=== PATIENT | female | born 1990 | race African-American/Black ===

== ENCOUNTER → 2024-10-13 | Outpatient (CLI) | payer OTHER, SELFPAY ==
[2024-10-13 17:53] LABS: Absolute Lymphocyte Count 2.17 X10^3/uL (0.83-4.51); Basophil# 0.06 X10^3/uL; Basophil% 0.9 % (0-1); Eosinophil# 0.06 X10^3/uL; Eosinophils% 0.9 % (0-5); Hematocrit 37.3 % (37-47); Hemoglobin 12.5 g/dL (12.0-15.0); Lymphocyte # 2.17 X10^3/ul (0.83-4.51); Mean Corp Hgb Conc 33.5 g/dL (32-36); Mean Corpuscular Hgb 32.3 pg (27.0-32.0); Mean Corpuscular Volume 96.4 fL (81-99); Monocyte# 0.47 X10^3/uL; Monocyte% 6.9 % (0-10); NRBC Flagged by Analyzer 0 % (0-5); Neutrophil # 4.01 X10^3/uL (2.7-7.7); Platelet Count 382 K/mm3 (150-450); RBC Distribution Width CV 13.3 % (11.6-14.6); RBC Distribution Width SD 47.7 fl (35.1-43.9); Red Blood Count 3.87 M/mm3 (4.2-5.4); White Blood Count 6.8 K/mm3 (4.4-11.0)
[2024-10-13 18:03] LABS: AST(SGOT) 17 U/L (<=31); Alanine Aminotransfer ALT/SGPT 13 U/L (<=34); Albumin, Serum 4.3 g/dL (3.5-5.0); Alkaline Phosphatase 63 U/L (35-104); Anion Gap 10 (5-15); BUN 16 mg/dL (4-19); BUN/Creat Ratio 16.4 RATIO (10-20); Calcium,Total 9.6 mg/dL (7.6-11.0); Carbon Dioxide 25.2 mmol/L (21.0-32.0); Chloride 102 mmol/L (98-108); Creatinine, Serum 0.95 mg/dL (0.70-1.20); EST Glomerular Filtration Rate 80 (>60); Globulin 4.2 g/dL (2.2-4.2); Glucose 92 mg/dL (70-99); Potassium 3.7 mmol/L (3.3-5.1); Protein, Total 8.6 g/dL (5.9-8.4); Sodium Level 137 mmol/L (133-145); Total Bilirubin 0.23 mg/dL (0.00-1.30)
[2024-10-13 18:09] LABS: Hepatitis B Surface Antibody REAC
[2024-10-17 06:08] LABS: HEPATITIS B SURFACE AG Negative (Negative); Hep C Antibodies Non Reactive (Non Reactive); Hepatitis A AB, Total Negative (Negative); Hepatitis A IgM Antibody Negative (Negative); Hepatitis B Core AB IgM Negative (Negative); QNTFERON TB Mitogen Value > 10.00 IU/mL (.); QNTFERON TB Nil Value 0.04 IU/mL (.); QNTFERON TB1+ Ag Value 0.07 IU/mL (.); QNTFERON TB2+ Ag Value 0.02 IU/mL (.); QNTIFERON TB Positive Criteria Negative (Negative)
== END | disposition home or self-care (01) ==
PROVIDERS: PCP Nurse Practitioner Family; Referring Provider Dermatology Pediatric Dermatology; Visit Provider Dermatology Pediatric Dermatology
DX: L73.2 Hidradenitis suppurativa (principal); Z79.899 Other long term (current) drug therapy
CPT/HCPCS: 36415; 80053; 80074; 85025; 86480; 86706; 86708

== ENCOUNTER 2025-03-07 16:52 | Outpatient (CLI) | payer OTHER, SELFPAY ==
--- NOTE | 2025-03-07 15:40 | LES_PTH ---
PATIENT: VIOLET DIEZ LOC: [facility] U#:[id number] AGE/SX: 34/F ROOM: RE03/07/[address]: Dr. Jorge Day MD : 1990 BED: DIS: 03/07/2025 SPEC #: [id number] RECD: 03/08/25 08:07 STATUS: MARY LOU XIN #: [id number] DARIRUS: 03/07/25 15:[address]: Jorge Day DEPT: SURGICAL PATHOLOGY RECD BY: Teresa Eagle ENTERED: 03/08/25 08:08 SP TYPE: Lesion OTHR DR: AAYUSH Brewer Tissues: A - Skin of arm Procedures: Surgery Specimen Level III HEADER OPERATION: Excision hydrodenitis lesion - right armpit PRE-OP DIAGNOSIS: Right armpit TISSUE SUBMITTED: A- Right axillary lesion MICROSCOPIC DIAGNOSIS A. Skin, right axilla, excision: * Polypoid skin with active chronic inflammation and fibrosis/scar. MICROSCOPIC DESCRIPTION Slides are reviewed. GROSS DESCRIPTION A. Received in formalin labeled with the patient's name and date of . Designated as right axillary lesion is a brown, slightly wrinkled hair-bearing, somewhat polypoid, irregular portion of skin, 4.6 x 1.9 x 0.6 cm. The resection margin is perez-white, fibrotic, and inked orange. Sectioning reveals perez-white fibrotic to yellow fatty cut surfaces. Feather Drying Machine Operator sections are submitted in 2 cassettes. [place] 03/08/2025 CPT:43304
== END 2025-03-07 23:59 | disposition home or self-care (01) ==
LOC: LABSPEC 16:56
PROVIDERS: PCP Nurse Practitioner Family; Referring Provider Surgery Plastic and Reconstructive Surgery; Visit Provider Surgery Plastic and Reconstructive Surgery
DX: R22.9 Localized swelling, mass and lump, unspecified (principal); L90.5 Scar conditions and fibrosis of skin; L08.9 Local infection of the skin and subcutaneous tissue, unspecified
CPT/HCPCS: 88304; 88305

== ENCOUNTER → 2025-04-13 | Outpatient (CLI) | payer OTHER, SELFPAY ==
--- NOTE | 2025-04-13 15:00 | HID_PTH ---
PATIENT: VIOLET DIEZ LOC: [facility] U#:[id number] AGE/SX: 34/F ROOM: RE04/13/[address]: Dr. Jorge Day MD : 1990 BED: DIS: 04/13/2025 SPEC #: [id number] RECD: 04/13/25 16:11 STATUS: MARY LOU XIN #: [id number] DARRIUS: 04/13/25 15:[address]: Jorge Day DEPT: SURGICAL PATHOLOGY RECD BY: Gatito Burgess ENTERED: 04/16/25 09:22 SP TYPE: Josep MCQUEEN DR: AAYUSH Brewer Tissues: A - Right axillary region B - Left axillary region Procedures: Surgery Specimen Level III HEADER OPERATION: Excision hidradenitis right and left axillary PRE-OP DIAGNOSIS: Hidradenitis right and left axillary TISSUE SUBMITTED: A- Right axillary lesion, B- Left axillary lesion MICROSCOPIC DIAGNOSIS A. Right axilla, excision: - Polypoid skin fragments with active chronic inflammation, consistent with skin tags. B. Left axilla, excision: - Polypoid skin with active chronic inflammation, consistent with skin tag. MICROSCOPIC DESCRIPTION Slides are reviewed. GROSS DESCRIPTION Received in 2 formalin containers labeled with the patient's name and date of . Designated as: A. "Right axillary lesion" are 3 brown, wrinkled hairbearing portions of skin devoid of orientation collectively measuring 3.4 x 1.7 x 0.4 cm in aggregate. Sectioning reveals perez-yellow to white, fibrotic cut surfaces. Cell Cleaner sections are submitted in 1 cassette. B. "Left axillary lesion" is a 4.5 x 3.2 x 0.5 cm irregular, brown, wrinkled hairbearing portion of skin devoid of orientation. Sectioning reveals perez-yellow to white, fibrotic cut surfaces. Cell Cleaner sections are submitted in 1 cassette. [place] 04/16/2025 CPT:20835z8
--- OUTSIDE RECORDS SUMMARY | 2025-04-13 16:49 | XMS RPT_ITS | CCD ---
Author Organization [facility] Care Team Providers Care Information Coder Name Role Phone Yves Boogie Unavailable [phone] No, Physician Unavailable Unavailable No, Physician Unavailable Unavailable Unavailable Unavailable Unavailable PEOPLECELIA Montes Unavailable Unavai labrios NO, PHYSICIAN Unavailable Unavailable PEOPLECELIA Montes Unavailable Unavai lable Ambrosio Mas Unavailable Unavailable Ambrosio Mas Unavailable Unavailable Yves Boogie Unavailable Unavailable Yves Boogie Unavailable Unavailable Unavailable Primary Care Provider UnavailYves Sharpe Primary Care Provider [phone] No, Physician Unavailable Unavailable Serene Melendez Unavailable Maksim Shraee E Unavailable Unavailable SERENE MELENDEZ Admitting Unavail able ZEINAB MENDOZA Attending Unavailable SERENE MELENDEZ Referring Unavail able YVES BOOGIE Primary Care Unavailable YVES BOOGIE Primary Care Unavailable YVES BOOGIE Primary Care Unavailable YVES BOOGIE Primary Care Unavailable Cecile Oleary Primary Care Provider Cecile Valle Primary Care Provide r No, Physician Unavailable Unavailable Serene Melendez CNP Unavailable Maksim PAULETTE Sharee E Unavailable Unavailable No, Physician Primary Care Provider UnavailCordell Mera Primary Care Provider Serene Melendez CNP Unavailable [phone] Maksimnina CALDWELL Sharee E Unavailable Unavailable Yves Boogie MD Primary Care Provider No, Physician Unavailable Unavailable Serene Melendez CNP Unavailable [phone] Maksim CALDWELL, Sharee E Unavailable Unavailable No, Physician Primary Care Provider Unavailabl e Steve EXOTIC DANCER-WET WHEELER, Cordell Primary Care Provider NO, PHYSICIAN Primary Care Unavailable MOROCCO JR., ERIKA Attending Unavailable NO, PHYSICIAN Primary Care Unavailable MOROCCO JR., ERIKA Attending Unavailable MOROCCO JR., ERIKA Attending Unavailable NO, PHYSICIAN Primary Care Unavailable NO, PHYSICIAN Primary Care Unavailable MOROCCO JR., ERIKA Attending Unavailable Steve EXOTIC DANCER-WET WHEELER, Cordell Primary Care Provider Steve FIRE BATTALION CHIEF-C, Cordell Primary Care Provider Nancy VIVAS, Dr. Solomon Attending Provider [phone] Dr. Neha Cruz MD Referring Provider [phone] STEVE, CORDELL Primary Care Unavailable STEVE, CORDELL Referring Unavailable RABIA PECK Attending Unavailable STEVE, CORDELL Referring Unavailable STEVE, CORDELL Attending Unavailable STEVE, CORDELL Primary Care Unavailable STEVE, CORDELL Attending Unavailable SELF, SELF Referring Unavailable STEVE, CORDELL Primary Care Unavailable SELF, SELF Referring Unavailable RABIA PECK Attending Unavailable STEVE, CORDELL Primary Care Unavailable STEVE, CORDELL Primary Care Unavailable STEVE, CORDELL Referring Unavailable STEVE, CORDELL Attending Unavailable STEVE, CORDELL Primary Care Unavailable STEVE, CORDELL Attending Unavailable SELF, SELF Referring Unavailable Steve FIRE BATTALION CHIEF-C, Cordell Referring Provider Dr. Jorge Day MD Attending Provider Power FIRE BATTALION CHIEF-C, Cordell Primary Care Physician Dr. Jorge Day MD Attending Physician Dr. Neha Cruz MD Referring Provider [phone] Power FIRE BATTALION CHIEF-C, Cordell Referring Provider Dr. Jorge Day MD Referring Provider Steve, Cordell Primary Care Unavailable Stvee, Cordell Referring Unavailable Jorge Day Attending Unavailable Steve, Cordell Primary Care Unavailable Jorge Day Attending Unavailable Shay Jorge Referring Unavailable Steve, Cordell Primary Care Unavailable Sisjefferson, Jorge Attending Unavailable Neha Cruz Referring Unavailable Steve, Cordell Referring Unavailable SisJorge paulino Attending Unavailable Steve, Cordell Primary Care Unavailable Steve, Cordell Referring Unavailable Steve, Cordell Primary Care Unavailable SisJorge paulino Attending Unavailable Steve, Cordell Primary Care Unavailable NancyNeha perez Attending Unavailable NancyIzabela perezen Referring Unavailable Medications Current Medications Medication Drug Class(es) Dates Sig (Normalized) Sig (Original) 0.4 ml adalimumab 100 mg/ml auto-injector (6 sources) Tumor Necrosis Factor Dejuan Start: 01-22-2023 inject 1 dose by subcutaneous injection every week Humira Pen 40 MG/0.4ML Pen-injector Kit citrate free Inject under the skin once a week. Pt unsure of dose 01/22/2023 Active albuterol 108 (90 Base) MCG/ACT Aero Soln inhaler (6 sources) Start: 08-15-2020 take 1 puff(s) by inhalation every six hours as needed for wheezing albuterol 108 (90 Base) MCG/ACT Aero Soln inhaler Inhale 1 puff every 6 hours as needed for Wheezing. 1 Inhaler 0 08/15/2020 Active Start: 08-01-2020 take 1 puff(s) by in halation every six hours as needed for wheezing albuterol 108 (90 Base) MCG/ACT Aero Soln inhaler Inhale 1 puff every 6 hours as needed for Wheezing. 1 Inhaler 0 08/01/2020 Active Start: 06-18-2020 End: 06-25-2020 take 2 puff(s) by inhalation every four hours as needed for wheezing albuterol 108 (90 Base) MCG/ACT Aero Soln inhaler Indications: Wheezy bronchitis Inhale 2 puffs every 4 hours as needed for Wheezing for up to 7 days. 1 Inhaler 0 06/18/2020 06/25/2020 Active Start: 04-28-2020 End: 06-18-2020 take 2 puff(s) by inhalation every four hours as needed for wheezing albuterol 108 (90 Base) MCG/ACT Aero Soln inhaler Inhale 2 puffs every 4 hours as needed for Wheezing for up to 7 days. 1 Inhaler 0 04/28/2020 06/18/2020 Discontinued (Reorder) Start: 04-28-2020 End: 05-05-2020 take 2 puff(s) by inhalation every four hours as needed for wheezing albuterol 108 (90 Base) MCG/ACT Aero Soln inhaler Inhale 2 puffs every 4 hours as needed for Wheezing for up to 7 days. 1 Inhaler 0 04/28/2020 05/05/2020 Active amLODIPine 5 mg oral tablet (6 sources) Dihydropyridine Calcium Channel Dejuan Start: 01-26-2025 take 1 tablet by mouth once daily Amlodipine 5 mg tablet Active 5 mg PO daily January 26, 2025 12:00am Complies with drug therapy Start: 10-03-2024 take 1 tablet by harini th once daily amLODIPine 5 MG tablet Indications: Benign hypertension Take 1 tablet by mouth daily. 30 tablet 5 10/03/2024 Active azithromycin 250 mg oral tablet (5 sources) Macrolide Antimicrobial Start: 02-02-2023 End: 02-07-2023 Azithromycin 250 MG tablet Take 500 mg X1 then 250 mg PO Once Daily X 4 days 6 tablet 0 02/02/2023 02/07/2023 Active Start: 06-09-2021 End: 06-13-2021 azithromycin 250 MG tablet T mere 500 mg X1 then 250 mg PO Once Daily X 4 days 6 tablet 0 06/09/2021 06/13/2021 Active Start: 08-15-2020 End: 08-20-2020 azithromycin 250 MG tablet T mere 2 tablets (500 mg) on Day 1, then 1 tablet (250 mg) daily on Days 2-5 6 tablet 0 08/15/2020 08/20/2020 Active Start: 04-28-2020 End: 05-03-2020 azithromycin (Zithromax Z-Pa k) 250 MG tablet Take 2 tablets (500 mg) on Day 1, then 1 tablet (250 mg) daily on Days 2-5 6 tablet 0 04/28/2020 05/03/2020 Active benzoyl peroxide 100 mg/ml medicated liquid soap (20 sources) Start: 08-18-2021 End: 10-03-2024 Benzoyl Peroxide 10 % Liquid Indications: Hidradenitis suppurativa Take 1 Application by mouth daily. Wash in shower 148 mL 11 10/03/2024 Active Start: 07-08-2021 End: 08-16-2021 benzoyl peroxide 10 % Clsr [place] affected areas in shower daily . 141 g 5 07/08/2021 08/16/2021 Discontinued (Reorder) Start: 04-23-2020 End: 05-23-2020 benzoyl peroxide 10 % Clsr I ndications: Hidradenitis suppurativa Apply 1 application topically 2 (two) times a day . 227 g 1 04/23/2020 05/23/2020 Active Bimekizumab-Bkzx (4 sources) Start: 01-26-2025 Bimekizumab-Bk zx (Bimzelx Autoinjector) 320 mg/2 mL auto-injector Active mg SC January 26, 2025 12:00am Complies with drug therapy Start: 01-26-2025 Start: 01-26-2025 Bimekizumab-Bk zx (Bimzelx Autoinjector) 320 mg/2 mL auto- injector Active mg SC January 26, 2025 12:00am brompheniramine maleate 0.4 mg/ml / dextromethorphan hydrobromide 2 mg/ml / pseudoephedrine hydrochloride 6 mg/ml oral solution (3 sources) alpha-Adrenergic Agonist, Uncompetitive K-rdyxaq-M-aspartate Receptor Antagonist, Sigma-1 Agonist Start: 04-28-2020 take 1 [tsp_us] by mouth every six hours as needed chqskwimnegskkq-yvnchajersoyvxb-caujjefv thorphan (Bromfed DM) 30-2-10 MG/5ML Syrup Take 1 teaspoon PO every 6 hours as needed 200 mL 0 04/28/2020 Active cefuroxime 500 mg oral tablet (1 source) Cephalosporin Antibacterial Start: 02-02-2023 End: 02-12-2023 take 1 tablet by mouth twice daily cefUROXime 500 MG tablet Take 1 tablet b y mouth 2 times daily for 10 days. 20 tablet 0 02/02/2023 02/12/2023 Active clindamycin 10 mg/ml topical lotion (20 sources) Lincosamide Antibacterial Start: 10-03-2024 clindamycin 1 % Lotion lotio n Indications: Hidradenitis suppurativa Apply a thin layer to affected areas bid 60 mL 11 10/03/2024 Active Start: 08-18-2021 End: 10-03-2024 clindamycin 1 % Lotion lotio n Apply 1 Application topically Twice daily. To affected areas 08/18/2021 10/03/2024 Discontinued (Reorder) Start: 07-08-2021 End: 08-16-2021 clindamycin (CLEOCIN T) 1 % lotion Apply topically 2 (two) times a day To affected areas. . 60 mL 4 07/08/2021 08/16/2021 Discontinued (Reorder) Start: 04-23-2020 End: 04-23-2021 clindamycin (Cleocin T) 1 % external solution Indications: Hidradenitis suppurativa Apply topically 2 (two) times a day . 30 mL 2 04/23/2020 04/23/2021 Active Start: 02-08-2017 End: 02-08-2017 take 600 mg intravenous route every hour clindamycin (CLEOCIN) IVPB 600 mg (premix) 600 mg, Intravenous, at 100 mL/hr, Once, 02/08/17 at 5, For 1 dose, Indication: Skin & Soft Tissue Infection New Bag 02/08/2017 21:11 EDT 600 mg 100 mL/hr Start: 02-08-2017 End: 02-18-2017 take 1 capsule by mouth four times daily clindamycin (CLEOCIN) 300 MG capsule Take 1 (one) capsule (300 mg total) by mouth 4 (four) times a day for 10 days. 40 capsule 0 02/08/2017 02/18/2017 Active ergocalciferol 1.25 mg oral capsule (20 sources) Provitamin D2 Compound Start: 02-27-2020 End: 01-01-2022 take 1 capsule by mouth every week ergocalciferol (ERGOCALCIFEROL) 1,250 mcg (50,000 unit) capsule Indications: Vitamin D insufficiency Take 1 (one) capsule (50,000 Units total) by mouth once a week . 4 capsule 1 02/27/2020 Active ferrous sulfate 325 mg oral tablet (16 sources) Start: 02-28-2020 End: 02-27-2021 take 1 tablet by mouth three times daily at mealtime ferrous sulfate 325 (65 FE) MG tablet Indications: Iron deficiency anemia, unspecified iron deficiency anemia type Take 1 (one) tablet (325 mg total) by mouth 3 (three) times a day with meals . 90 tablet 2 02/28/2020 Active hydroCHLOROthiazide 25 mg / lisinopril 20 mg oral tablet (15 sources) Thiazide Diuretic, Angiotensin Converting Enzyme Inhibitor Start: 01-26-2025 Lisinopril-Hydrochlo rothiazide 20-25 mg tablet Active 1 {tbl} PO daily January 26, 2025 12:00am Complies with drug therapy Start: 09-14-2022 End: 10-03-2024 take 20-25 mg by mouth once lisinopril-hydrochlorothiazide (Zestoret ic) 20-25 MG per tablet Indications: Benign hypertension Take 1 tablet by mouth daily. 90 tablet 1 10/03/2024 Active Start: 02-27-2022 take 1 tablet by harini once daily lisinopril-hydrochlorothiazide (Zestoret ic) 20-12.5 MG per tablet Indications: Hypertension, unspecified type Take 1 tablet by mouth daily. 30 tablet 5 02/27/2022 Active Start: 01-01-2022 End: 02-27-2022 take 1 tablet by mouth once daily lisinopril-hydrochlorothiazide 20-25 MG per tablet Indications: Uncontrolled hypertension , Edema of right upper extremity Take 1 tablet by mouth daily. 30 tablet 5 01/01/2022 02/27/2022 Discontinued ibuprofen 200 mg oral tablet (16 sources) Nonsteroidal Anti-inflammatory Drug take 2 tablets by mouth every six hours as needed for pain ibuprofen (ADVIL,MOTRIN) 200 MG tablet Take 400 mg by mouth every 6 (six) hours as needed for pain. 0 Active metFORMIN hydrochloride 500 mg oral tablet (14 sources) Biguanide Start: metFORMIN (GLUCOPHAGE) 500 MG tablet Take 1 tablet daily. . 30 tablet 1 01/05/2022 Active Start: 10-07-2021 End: 10-03-2024 take 0.5 tablet by mouth once daily metFORMIN 500 MG tablet Take 0.5 tablets by mouth daily. 10/07/2021 10/03/2024 Discontinued (Therapy completed) Start: 10-07-2021 End: 01-05-2022 metFORMIN (GLUCOPHAGE) 500 M G tablet Take 1/2 tablet a day for a total of 250mg . 30 tablet 1 10/07/2021 01/05/2022 Discontinued (Reorder) 24 hr metoprolol succinate 25 mg extended release oral tablet (20 sources) beta-Adrenergic Dejuan Start: 07-09-2020 End: 01-01-2022 take 1 tablet by mouth once daily metoprolol succinate (TOPROL-XL) 25 MG 24 hr tablet Take 1 (one) tablet (25 mg total) by mouth daily . 30 tablet 11 07/09/2020 Active pantoprazole 40 mg delayed release oral tablet (7 sources) Proton Pump Inhibitor Start: 01-26-2025 take 1 tablet by mouth once daily Pantoprazole 40 mg tablet,delayed release (DR/EC) Active 40 mg PO daily January 26, 2025 12:00am Complies with drug therapy Start: 10-03-2024 take 1 tablet by harini th once daily Pantoprazole (Protonix) [address] tablet DR Indications: Gastroesophageal reflux disease without esophagitis Take 1 tablet by mouth daily. 30 tablet 2 10/03/2024 Active Start: 02-02-2023 End: 02-02-2023 Pantoprazole (PROTONIX) inje ction 40 mg Completed/Discontinued Medications Medication Drug Class(es) Dates Sig (Normalized) Sig (Original) acetaminophen 325 mg / HYDROcodone bitartrate 5 mg oral tablet (4 sources) Opioid Agonist Start: 02-08-2017 End: 02-08-2017 take 2 tablets by mouth once, then take 2 tablets by mouth HYDROcodone-aceta minophen (NORCO) 5-325 mg per tablet 2 tablet 2 tablet, Oral, Once, 02/08/17 at 2230, For 1 dose Given 02/08/2017 22:32 EDT 2 tablets Start: 02-08-2017 End: 02-18-2017 take 1 tablet by mouth every six hours HYDROcodone-acetaminophen (NORCO) 5-325 mg per tablet Take 1 (one) tablet by mouth every 6 (six) hours as needed for pain. 15 tablet 0 02/08/2017 02/18/2017 Active Start: 01-08-2017 End: 04-28-2020 take 1 tablet by mouth three times daily hydroCODone-acetaminophen 5-325 MG Tab t mere 1 tablet by mouth 3 times daily as needed.. 6 tablet 0 01/08/2017 04/28/2020 Discontinued [id number] 200 actuat albuterol 0.09 mg/actuat metered dose inhaler (20 sources) beta2-Adrenergic Agonist Start: 02-02-2023 End: 09-11-2024 take 2 puff(s) by inhalation every four hours Albuterol 108 (90 Base) MCG/ACT Aero Soln inhaler 2 puffs every 4 hours while awake for next 5 days. 6.7 g 02/02/2023 09/11/2024 Discontinued (Therapy completed) Start: 09-14-2022 take 2 puff(s) by in halation every four hours as needed for wheezing Albuterol 108 (90 Base) MCG/ACT Aero Soln inhaler Indications: Moderate persistent asthma without complication Inhale 2 puffs every 4 hours as needed for Shortness of Breath or Wheezing. 18 g 5 09/14/2022 Active Start: 12-11-2021 End: 01-01-2022 take 2 puff(s) by inhalation every four hours as needed for wheezing albuterol 108 (90 Base) MCG/ACT Aero Soln inhaler Indications: Moderate persistent asthma without complication Inhale 2 puffs every 4 hours as needed for Shortness of Breath or Wheezing. 18 g 5 01/01/2022 Active Start: 10-01-2021 take 2 puff(s) by in halation every four hours as needed for wheezing albuterol 108 (90 Base) MCG/ACT Aero Soln inhaler Indications: Asthma, unspecified asthma severity, unspecified whether complicated, unspecified whether persistent Inhale 2 puffs every 4 hours as needed for Wheezing. 18 g 1 10/01/2021 Active Start: 06-09-2021 End: 02-02-2023 albuterol (2.5 MG/3ML) 0.083 % inhalation solution Indications: Asthma, unspecified asthma severity, unspecified whether complicated, unspecified whether persistent Take 3 mL by nebulization every 4 hours as needed for Wheezing. Inhalation via nebulizer 90 mL 3 10/01/2021 02/02/2023 Discontinued (Therapy completed) Start: 01-23-2021 End: 10-01-2021 take 1 puff(s) by inhalation every six hours as needed for wheezing albuterol 108 (90 Base) MCG/ACT Aero Soln inhaler Inhale 1 puff every 6 hours as needed for Wheezing. 18 g 1 01/23/2021 10/01/2021 Discontinued (Reorder) Start: 08-01-2020 End: 10-23-2020 take 1 puff(s) by inhalation every six hours as needed for wheezing albuterol 108 (90 Base) MCG/ACT Aero Soln inhaler Inhale 1 puff every 6 hours as needed for Wheezing. 1 Inhaler 0 08/01/2020 Active albuterol 0.833 mg/ml / ipratropium bromide 0.167 mg/ml inhalation solution (1 source) Anticholinergic, beta2-Adrenergic Agonist Start: 12-15-2021 End: 12-15-2021 ipratropium-albuterol (DUONEB) 0.5-2.5 (3) MG/3ML nebulizer solution 3 mL Start: 12-15-2021 End: 12-15-2021 ipratropium-albuterol (DUONE B) 0.5-2.5 (3) MG/3ML nebulizer solution 3 mL benzonatate 200 mg oral capsule (3 sources) Non-narcotic Antitussive Start: 02-25-2020 End: 04-28-2020 take 1 capsule by mouth three times daily as needed for cough benzonatate 200 MG capsule Indications: Allergic cough Take 1 capsule by mouth 3 times daily as needed for Cough. 21 capsule 0 02/25/2020 04/28/2020 Discontinued 60 actuat budesonide 0.16 mg/actuat / formoterol fumarate 0.0045 mg/actuat metered dose inhaler (17 sources) Corticosteroid, beta2-Adrenergic Agonist Start: 09-14-2022 End: 09-11-2024 take 2 puff(s) by inhalation every twelve hours budesonide-formote rol 160-4.5 mcg/puff Aerosol inhaler Indications: Moderate persistent asthma without complication Inhale 2 puffs every 12 hours. 10.2 g 5 09/14/2022 09/11/2024 Discontinued (Patient Preference) Start: 01-01-2022 take 2 puff(s) by in halation every twelve hours budesonide-formoterol 160-4.5 mcg/puff Aerosol inhaler Indications: Moderate persistent asthma without complication Inhale 2 puffs every 12 hours. 10.2 g 5 01/01/2022 Active Start: 01-23-2021 End: 01-01-2022 take 2 puff(s) by inhalation every twelve hours budesonide-formoterol 160-4.5 mcg/puff Aerosol inhaler Indications: Asthma, unspecified asthma severity, unspecified whether complicated, unspecified whether persistent Inhale 2 puffs every 12 hours. 6 g 1 12/15/2021 01/01/2022 Discontinued (Reorder) Start: 10-10-2020 take 2 puff(s) by in halation every twelve hours budesonide-formoterol 160-4.5 mcg/puff Aerosol inhaler Inhale 2 puffs every 12 hours. 1 Inhaler 3 10/10/2020 Active Start: 08-01-2020 take 2 puff(s) by in halation every twelve hours budesonide-formoterol 160-4.5 mcg/puff Aerosol inhaler Inhale 2 puffs every 12 hours. 1 Inhaler 0 08/01/2020 Active 24 hr buPROPion hydrochloride 300 mg extended release oral tablet (5 sources) Aminoketone Start: 09-14-2022 End: 09-05-2024 take 1 tablet by mouth once daily in the morning buPROPion 300 MG tablet XL Indications: Other depression Take 1 tablet by mouth daily every morning. 90 tablet 1 09/14/2022 09/05/2024 Discontinued (Therapy completed) Start: 02-27-2022 take 1 tablet by harini th once daily in the morning buPROPion 300 MG tablet XL Indications: Other depression Take 1 tablet by mouth daily every morning. 30 tablet 5 02/27/2022 Active Start: 01-01-2022 take 1 tablet by harini th every twelve hours buPROPion 150 MG tablet SR Indications: Other depression Take 1 tablet by mouth every 12 hours. 60 tablet 1 01/01/2022 Active calcium chloride 0.0014 meq/ml / potassium chloride 0.004 meq/ml / sodium chloride 0.103 meq/ml / sodium lactate 0.028 meq/ml injectable solution (1 source) Start: 02-02-2023 End: 02-02-2023 Lactated ringers IV solution 1,000 mL cefTRIAXone (ROCEPHIN) 1 g in sodium chloride 0.9% (MB PLUS) 50 mL (total volume) IVPB (1 source) Start: 02-02-2023 End: 02-02-2023 cefTRIAXone (ROCEPHIN) 1 g in sodium chloride 0.9% (MB PLUS) 50 mL (total volume) IVPB cetirizine hydrochloride 10 mg oral tablet (17 sources) Histamine-1 Receptor Antagonist Start: 08-01-2020 End: 10-03-2024 take 1 tablet by mouth once daily cetirizine 10 MG tablet Indications: Deviated nasal septum , Nasal obstruction , Chronic sinusitis, unspecified location Take 1 tablet by mouth daily. 30 tablet 11/20/2020 10/03/2024 Discontinued (Therapy completed) cholecalciferol 1000 unt oral capsule (2 sources) Vitamin D Start: 10-13-2017 End: 03-14-2020 take 1 capsule by mouth once daily cholecalciferol, vitamin D3, (VITAMIN D3) 1,000 unit capsule Take 1 (one) capsule (1,000 Units total) by mouth daily. 90 capsule 3 10/13/2017 03/14/2020 Discontinued (Duplicate order) 1 ml diphenhydrAMINE hydrochloride 50 mg/ml cartridge (1 source) Histamine-1 Receptor Antagonist Start: 02-02-2023 End: 02-02-2023 diphenhydrAMINE (BENADRYL) injection 50 mg doxycycline hyclate 100 mg oral capsule (18 sources) Tetracycline-cla ss Drug Start: 03-07-2025 End: 03-14-2025 take 1 capsule by mouth twice daily at mealtime Doxycycline Hyclate 100 mg capsule Discontinued 100 mg PO TWICE A DAY 14 7 0 March 07, 2025 12:00am March 13, 2025 12:00am March 14, 2025 12:12am Hidradenitis Hidradenitis suppurativa prophylaxis take with food Start: 07-31-2017 End: 02-25-2020 doxycycline hyclate (VIBRAMY TANNER) 100 MG capsule fluticasone propionate 0.05 mg/actuat metered dose nasal spray (20 sources) Corticosteroid Start: 11-20-2020 End: 10-03-2024 fluticasone 50 MCG/ACT Suspension nasal spray Indications: Deviated nasal septum , Nasal obstruction , Chronic sinusitis, unspecified location 2 sprays by Nasal route 2 times daily. 18.2 mL 11/20/2020 10/03/2024 Discontinued (Therapy completed) Start: 10-23-2020 End: 01-01-2022 fluticasone 50 MCG/ACT Suspe nsion nasal spray Indications: Deviated nasal septum , Nasal obstruction , Chronic sinusitis, unspecified location 2 sprays by Nasal route daily. 1 Bottle 0 10/23/2020 01/01/2022 Discontinued (Therapy completed) Start: 06-18-2020 End: 01-01-2022 take 2 spray(s) nasal route once daily fluticasone 50 MCG/ACT Suspension nasal spray Indications: Rhinitis, unspecified type 2 sprays each nostril daily 1 Bottle 0 06/18/2020 01/01/2022 Discontinued (Therapy completed) 12 hr guaiFENesin 600 mg extended release oral tablet (2 sources) Start: 08-15-2020 End: 10-23-2020 take 1 tablet by mouth twice daily as needed guaiFENesin 600 MG Tab SR 12 HR tablet SR Take 1 tablet by mouth 2 times daily as needed. 30 tablet 0 08/15/2020 10/23/2020 Discontinued hydrocortisone 0.025 mg/mg topical ointment (2 sources) Corticosteroid Start: 07-31-2017 End: 03-14-2020 hydrocortisone 2.5 % ointment lisinopril 20 mg oral tablet (14 sources) Angiotensin Converting Enzyme Inhibitor Start: 10-23-2020 End: 01-03-2022 take 1 tablet by mouth once daily lisinopril 20 MG tablet Take 1 tablet by mouth daily. 30 tablet 0 12/15/2021 01/01/2022 Discontinued (Duplicate (suppress cancel msg)) Start: 10-10-2020 End: 10-23-2020 take 1 tablet by mouth once daily lisinopril 10 MG tablet Take 1 tablet by mouth daily. 90 tablet 0 10/10/2020 10/23/2020 Discontinued Start: 08-01-2020 take 1 tablet by harini once daily lisinopril 10 MG tablet Take 1 tablet by mouth daily. 30 tablet 0 08/01/2020 Active loratadine 10 mg oral tablet (15 sources) Start: 10-23-2020 End: 10-03-2024 take 1 tablet by mouth once daily loratadine 10 MG tablet Indications: Deviated nasal septum , Nasal obstruction , Chronic sinusitis, unspecified location Take 1 tablet by mouth daily. 30 tablet 11/20/2020 10/03/2024 Discontinued (Therapy completed) 2 ml metoclopramide 5 mg/ml prefilled syringe (1 source) Dopamine-2 Receptor Antagonist Start: 02-02-2023 End: 02-02-2023 Metoclopramide (REGLAN) injection 10 mg minocycline 100 mg oral capsule (20 sources) Tetracycline-cla ss Drug Start: 08-18-2021 End: 10-03-2024 take 1 capsule by mouth twice daily minocycline 100 MG capsule Take 1 capsule by mouth Twice daily. 08/18/2021 10/03/2024 Discontinued (Therapy completed) Start: 04-23-2020 End: 08-16-2021 take 1 capsule by mouth twice daily minocycline (MINOCIN,DYNACIN) 100 MG capsule Indications: Hidradenitis suppurativa Take 1 (one) capsule (100 mg total) by mouth 2 (two) times a day . 60 capsule 2 07/08/2021 08/16/2021 Discontinued (Reorder) 2 ml ondansetron 2 mg/ml injection (1 source) Serotonin-3 Receptor Antagonist Start: 02-02-2023 End: 02-02-2023 Ondansetron 4mg/2ml (ZOFRAN) injection 4 mg potassium bicarbonate 25 meq effervescent oral tablet (1 source) Start: 02-02-2023 End: 02-02-2023 potassium bicarbonate (EFFER-K) effervescent tablet 50 mEq predniSONE 20 mg oral tablet (12 sources) Start: 12-15-2021 End: 12-15-2021 predniSONE (DELTASONE) tablet 40 mg Start: 12-15-2021 End: 01-01-2022 take 2 tablets by mouth once daily predniSONE 20 MG tablet Take 2 tablets by mouth daily. 10 tablet 0 12/15/2021 01/01/2022 Discontinued (Therapy completed) Start: 12-11-2021 End: 12-15-2021 predniSONE 10 MG (21) Tab Th erapy Pack Indications: Asthma, unspecified asthma severity, unspecified whether complicated, unspecified whether persistent Take 6 pills on day 1, then 5, 4, 3, 2 and 1 each day sequentially 21 Each 0 12/11/2021 12/15/2021 Discontinued (Therapy completed) Start: 10-01-2021 predniSONE 10 MG (21) Tab Therapy Pack Indications: Asthma, unspecified asthma severity, unspecified whether complicated, unspecified whether persistent Take 6 pills on day 1, then 5, 4, 3, 2 and 1 each day sequentially 21 Each 0 10/01/2021 Active Start: 06-09-2021 End: 10-01-2021 predniSONE 10 MG (21) Tab Th erapy Pack Take 6 pills on day 1, then 5, 4, 3, 2 and 1 each day sequentially 21 Each 0 06/09/2021 10/01/2021 Discontinued (Reorder) Start: 06-09-2021 predniSONE 10 MG (21) Tab Therapy Pack Take 6 pills on day 1, then 5, 4, 3, 2 and 1 each day sequentially 21 Each 0 06/09/2021 Active Start: 06-18-2020 End: 06-24-2020 take 2 tablets by mouth once daily, then take 1 tablet by mouth once daily predniSONE 20 MG tablet Indications: Wheezy bronchitis , Rhinitis, unspecified type Take 2 tablets by mouth daily for 3 days, THEN 1 tablet daily for 3 days. 40,40,40,20,20,20. 9 tablet 0 06/18/2020 06/24/2020 Active Start: 04-28-2020 End: 06-18-2020 predniSONE 20 MG tablet 3 ta bs daily x 3days; 2 tabs daily x 3days; 1 tab daily x 3days then 1/2 tablet daily x 3days 20 tablet 0 04/28/2020 06/18/2020 Discontinued (Therapy completed) rifAMPin 300 mg oral capsule (20 sources) Rifamycin Antibacterial Start: 08-18-2021 End: 10-03-2024 take 1 capsule by mouth twice daily rifAMPin 300 MG capsule Take 1 capsule by mouth Twice daily. 08/18/2021 10/03/2024 Discontinued (Therapy completed) Start: 04-23-2020 End: 08-16-2021 take 1 capsule by mouth twice daily rifAMPin (RIFADIN) 300 MG capsule Indications: Hidradenitis suppurativa Take 1 (one) capsule (300 mg total) by mouth 2 (two) times a day . 60 capsule 2 07/08/2021 08/16/2021 Discontinued (Reorder) sulfamethoxazole 800 mg / trimethoprim 160 mg oral tablet (1 source) Dihydrofolate Reductase Inhibitor Antibacterial, Sulfonamide Antimicrobial Start: 01-08-2017 End: 02-25-2020 sulfamethoxazole-trimethopri m 800-160 MG Tab take 1 tablet by mouth 2 times daily.. 20 tablet 0 01/08/2017 02/25/2020 Discontinued (Therapy completed) Problems Active Problems Problem Classification Problem Date Documented Date Episodic/Chronic Abdominal pain (1 source) Upper abdominal pain; Translations: [Upper abdominal pain, unspecified] 02-02-2023 Episodic Acute bronchitis (1 source) Acute infective bronchitis; Translations: [Acute bronchitis due to other specified organisms] Episodic Administrative/socia l admission (3 sources) Patient encounter status; Translations: [Tobacco abuse counseling] Episodic Asthma (14 sources) Asthma; Translations: [Unspecified asthma, uncomplicated] Onset: 03-12-2025 Chronic Chronic obstructive pulmonary disease and bronchiectasis (2 sources) Bronchitis, not specified as acute or chronic; Translations: [Wheezy bronchitis] Episodic Conditions associated with dizziness or vertigo (1 source) Postural dizziness; Translations: [Dizziness and giddiness] Episodic Deficiency and other anemia (20 sources) Hereditary spherocytosis; Translations: [Hereditary spherocytosis] Onset: 10-08-2017 10-08-2017 Chronic Diseases of white blood cells (20 sources) Eosinophil count raised; Translations: [Eosinophilia] Onset: 07-25-2020 08-01-2020 Chronic Esophageal disorders (1 source) Gastroesophageal reflux disease without esophagitis; Translations: [Gastro-esophageal reflux disease without esophagitis] 10-03-2024 Chronic Essential hypertension (20 sources) Essential hypertension; Translations: [Essential (primary) hypertension] Onset: 10-08-2017 10-08-2017 Chronic Fever of unknown origin (1 source) Fever with chills; Translations: [Fever and chills] Episodic Fluid and electrolyte disorders (1 source) Hypokalemia; Translations: [Hypokalemia] 02-02-2023 Episodic Mood disorders (2 sources) Depressive disorder; Translations: [Other specified depressive episodes] Chronic Neoplasms of unspecified nature or uncertain behavior (5 sources) Neoplasm of soft tissue; Translations: [Neoplasm of unspecified behavior of bone, soft tissue, and skin] Onset: 10-17-2024 09-19-2024 Episodic Nutritional deficiencies (20 sources) Vitamin D deficiency; Translations: [Vitamin D deficiency, unspecified] Onset: 02-22-2020 02-22-2020 Chronic Other diseases of veins and lymphatics (2 sources) Lymphedema of upper limb; Translations: [Lymphedema, not elsewhere classified] Chronic Other lower respiratory disease (1 source) Allergic cough; Translations: [Allergic cough] Episodic Other lower respiratory disease (2 sources) Dyspnea; Translations: [Shortness of breath] Episodic Other lower respiratory disease (2 sources) Cough; Translations: [Cough] Episodic Other lower respiratory disease (1 source) Wheezing; Translations: [Wheezing on auscultation] Episodic Other nutritional; endocrine; and metabolic disorders (20 sources) Body mass index 30+ - obesity; Translations: [Obesity] Onset: 10-08-2017 10-08-2017 Chronic Other nutritional; endocrine; and metabolic disorders (13 sources) Obesity; Translations: [Obesity, unspecified] Onset: 10-08-2017 10-08-2017 Chronic Other nutritional; endocrine; and metabolic disorders (17 sources) Obese class I; Translations: [Obesity, unspecified] Onset: 02-25-2020 02-25-2020 Chronic Other nutritional; endocrine; and metabolic disorders (5 sources) Obese class I; Translations: [Obesity (BMI 30.0-34.9)] Onset: 02-25-2020 02-25-2020 Other skin disorders (20 sources) Hidradenitis; Translations: [Hidradenitis suppurativa] Onset: 02-08-2017 10-08-2017 Episodic Other skin disorders (12 sources) Hidradenitis suppurativa; Translations: [Hidradenitis suppurativa] Onset: 06-29-2022 Episodic Other skin disorders (2 sources) Hidradenitis suppurativa; Translations: [Hidradenitis suppurativa] Onset: 06-29-2022 Episodic Other skin disorders (1 source) Sebaceous cyst of skin; Translations: [Sebaceous cyst] 09-10-2024 Episodic Other skin disorders (1 source) Localized swelling, mass and lump, unspecified; Translations: [Localized swelling, mass and lump, unspecified] Onset: 03-23-2025 Episodic Other skin disorders (2 sources) Keloid scar; Translations: [Hypertrophic scar] 03-23-2025 Episodic Other upper respiratory disease (1 source) Rhinitis; Translations: [Rhinitis, unspecified type] Chronic Other upper respiratory infections (20 sources) Congestion of nasal sinus; Translations: [Chronic sinusitis, unspecified] Onset: 10-23-2020 Chronic Pneumonia (except that caused by tuberculosis or sexually transmitted disease) (1 source) Infective pneumonia; Translations: [Pneumonia, unspecified organism] 02-02-2023 Episodic Residual codes; unclassified (1 source) Family history of diabetes mellitus; Translations: [Family history of diabetes mellitus] Episodic Residual codes; unclassified (6 sources) Edema of right upper limb; Translations: [Localized edema] Episodic Residual codes; unclassified (2 sources) Localized edema; Translations: [Localized edema] Onset: 09-22-2024 Episodic Substance-related disorders (20 sources) Nicotine dependence; Translations: [Nicotine dependence, cigarettes, uncomplicated] Onset: 02-22-2020 02-22-2020 Chronic Unclassified (3 sources) Patient encounter status; Translations: [Routine medical exam] Onset: 10-08-2017 10-08-2017 Past or Other Problems Problem Classification Problem Date Documented Date Episodic/Chronic Deficiency and other anemia (20 sources) Iron deficiency anemia; Translations: [Iron deficiency anemia, unspecified] Onset: 10-08-2017 10-13-2017 Episodic Deficiency and other anemia (20 sources) Anemia; Translations: [Anemia, unspecified] Onset: 02-27-2020 02-27-2020 Episodic Diabetes mellitus without complication (20 sources) Prediabetes; Translations: [Prediabetes] Onset: 02-27-2020 02-27-2020 Episodic Essential hypertension (3 sources) Transient hypertension; Translations: [Temporary high blood pressure] Onset: 10-13-2017 10-13-2017 Episodic Mood disorders (8 sources) Mood disorders Onset: 01-01-2022 Resolved: 09-14-2022 01-01-2022 Other aftercare (13 sources) Follow-up status; Translations: [Person consulting for explanation of examination or test findings] Onset: 02-27-2020 Resolved: 07-09-2020 02-27-2020 Episodic Other circulatory disease (20 sources) Elevated blood-pressure reading, without diagnosis of hypertension; Translations: [Transient hypertension] Onset: 10-13-2017 10-13-2017 Episodic Other nutritional; endocrine; and metabolic disorders (20 sources) Autoantibody level - finding; Translations: [Other specified abnormal immunological findings in serum] Onset: 07-26-2020 08-01-2020 Episodic Other skin disorders (20 sources) Axillary hidradenitis suppurativa; Translations: [Hidradenitis suppurativa] Onset: 10-13-2017 10-13-2017 Episodic Other upper respiratory disease (20 sources) Deviated nasal septum; Translations: [Deviated nasal septum] Onset: 10-23-2020 10-23-2020 Episodic Other upper respiratory disease (20 sources) Nasal obstruction; Translations: [Other specified disorders of nose and nasal sinuses] Onset: 10-23-2020 10-23-2020 Episodic Residual codes; unclassified (17 sources) Edema; Translations: [Edema, unspecified] Onset: 10-08-2017 08-01-2020 Episodic Unclassified (15 sources) Edema, unspecified; Translations: [Swelling - edema - symptom] Onset: 10-08-2017 10-08-2017 Episodic Unclassified (1 source) Sebaceous cyst of skin 09-11-2024 Results Test Name Value Interpretation Reference Range Facility Plastic Surgery Visit Report on 03-23-2025 Plastic Surgery Visit Report [facility] [address] [place], [place] [address] OFFICE VISIT Date of Service: 03/23/25 MR#: [id number] Acct: [id number] Name: VIOLET WARNER Rep #: [id number] : 1990 Provider: Dr. Jorge Day MD Age/Sex: 34/F Location[place] [facility] Status: Signed Intake Vital Signs 01/26/25 09:54 03/23/25 11:34 Height 5 ft 4 in Weight: 189 lb BMI 32.4 BP 162/103 H 138/92 H Blood Pressure Location Rt brachial Rt brachial Position Sitting Sitting Respiration 18 18 Pulse 74 86 Pulse Source Monitor Monitor Pulse Oximetry (%) 98 99 Oxygen Delivery Method room air Intake Visit Reasons: post op-suture removal/steroid injection Chief Complaint: post op Is patient in pain?: No Allergies No Known Allergies Allergy (Unverified 03/23/25 11:33) Medications ???Medication ???Instructions ???Recorded ???Confirmed ???Type amlodipine 5 mg tablet 5 mg PO QDAY 01/26/25 03/23/25 His tory bimekizumab-bkzx 320 mg/2 mL mg subcut 01/26/25 03/23/25 Histor y subcutaneous auto-injector (Bimzelx Autoinjector) lisinopril 20 1 tab PO QDAY 01/26/25 03/23/25 Hi story mg-hydrochlorothiazid e 25 mg tablet pantoprazole 40 mg tablet,delayed 40 mg PO QDAY 01/26/25 03/23/25 H istory release Nurse's Note: Lidocaine 1% [facility] 8176-2407-64 LOT [id number] EXP 08/2025 Subjective Details: Patient doing well overall postop Pain controlled and her areas of hidradenitis excision and scar excision of the right armpit have healed Objective Details: No drainage and healing nicely Incision sites examined and Prolene sutures removed Coding Level of Care Code Global Post Op Diagnoses Hydradenitis L73.2 Keloid L91.0 [facility] Medical History Asthma Hypertension Surgical History Neoplasm of soft tissue Family History Other Diabetes Hypertension Social History Smoking Status: Former smoker Assessment and Plan (No Qualifiers) Assessment and Plan (1) Hydradenitis: Status: Acute Plan: Expected course after excision (2) Keloid: Status: Acute Plan: Keloid injected with 1 cc of Kenalog 10 (in the area of excision) so as to prevent keloid from reforming She would like to other spots excised (hidradenitis areas and keloid scar) in the right axilla. We will schedule Patient happy with the plan 03/23/25 1436 Date Jorge Vides Signature: Date (if applicable) CC: Normal [facility] Plastic Surgery Visit Report on 03-07-2025 Plastic Surgery Visit Report [facility] Plastic Reconstructive Surgery [address], [address] [place] [address] OFFICE VISIT Date of Service: 03/07/25 MR#: [id number] Acct: [id number] Name: VIOLET WARNER Rep #: [id number] : 1990 Provider: Dr. Jorge Day MD Age/Sex: 34/F [place] [facility] Status: Signed Intake Vital Signs 01/26/25 09:54 03/07/25 14:14 Height 5 ft 4 in Weight: 189 lb BMI 32.4 BP 162/103 H 149/93 H Blood Pressure Location Rt brachial Rt brachial Position Sitting Sitting Respiration 18 18 Pulse 74 75 Pulse Source Monitor Monitor Pulse Oximetry (%) 98 99 Oxygen Delivery Method room air room air Intake Visit Reasons: In office procedure Chief Complaint: In office procedure Is patient in pain?: No Allergies No Known Allergies Allergy (Unverified 03/07/25 14:14) Medications ???Medication ???Instructions ???Recorded ???Confirmed ???Type amlodipine 5 mg tablet 5 mg PO QDAY 01/26/25 03/07/25 His tory bimekizumab-bkzx 320 mg/2 mL mg subcut 01/26/25 03/07/25 Histor y subcutaneous auto-injector (Bimzelx Autoinjector) lisinopril 20 1 tab PO QDAY 01/26/25 03/07/25 Hi story mg-hydrochlorothiazid e 25 mg tablet pantoprazole 40 mg tablet,delayed 40 mg PO QDAY 01/26/25 03/07/25 H istory release doxycycline hyclate 100 mg capsule 100 mg PO BID prophylaxis 7 days 03/07/25 03/07/25 Rx #14 caps [facility] Medical History Asthma Hypertension Surgical History Neoplasm of soft tissue Family History Other Diabetes Hypertension Social History Smoking Status: Former smoker HPI In office procedure Details: 1% lidocaine w/ epi [facility] [id number] exp 2025 mar lot [id number] I talked her extensively about the risk benefits and alternatives to right axillary hidradenitis/keloid excision. She understood the risks of bleeding, infection, damage to surrounding structures including lymphatics and nerves, poor scarring, hypertrophic or keloidal scarring/unpredictabl e scars, and worsening of the webbing/scars/deformi ty. She elected to proceed. Office Procedures Procedure Time Out Time Out Informed consent given: Yes Consent signed: Yes Time out checklist: patient, procedure, site marked/identified, positioning of patient, supplies available, allergies confirmed and team agrees on procedure Time out staff in room: Yes Time out verified: Yes Time out date: 03/07/25 Time out time: 14:56 Coding Level of Care Code Attention Duc Diagnoses Hydradenitis L73.2 Assessment and Plan (No Qualifiers) Assessment and Plan (1) Hydradenitis: Status: Acute Plan: Procedure Preoperative diagnosis: Right axillary hidradenitis and keloid scarring Procedure performed: Right axillary hidradenitis tract/keloid scar excision, 1 x 2 cm (sent to pathology in 1 piece) Procedure details: Patient was correctly identified in the office and the area for excision was marked. This was a webbed hidradenitis tract/keloid scar in the right axilla measuring approximately 1 x 2 cm. She was anesthetized with 10 cc of 1% lidocaine with 1-200,000 epinephrine. It was given time to take effect. She was taken to the procedure room. her right axilla was prepped and draped in sterile fashion. Timeout was performed. 15 blade scalpel was used to excise the keloid scar/hidradenitis tract in the right axilla for an excision of a benign lesion of 1 x 2 cm and it was sent to pathology in 1 piece. Hemostasis o btained with the above-noted local solution and minimal electrocautery (so as to prevent keloid scarring). The wound was irrigated with copious amounts normal saline and Betadine. The wound was then closed with 4-0 interrupted Prolene suture for simple closure. Bacitracin was applied on top, 1 small area was left open to drain intentionally. Patient tolerated the procedure well. Postoperative plan: Patient will be prescribed 1 week of antibiotics. She is given strict return precautions. I talked her about follow-up next week with steroid injection if the wound appears to be healing well so as to prevent recurrence of any keloid scarring along thee hidradenitis tract. Okay to shower and get wet. 03/07/25 1527 Date Jorge Day MD [facility] Signature: Date (if applicable) CC: Normal [facility] Surgery Specimen Level Eloy 03-07-2025 Surgery Specimen Level IV -------- Patient Age/Sex Location Account Attending Physician -------- VIOLET WARNER 34/F [facility] [id number] Dr. Jorge Day MD -------- Specimen: [id number] Received: 03/08/25 Status: MARY LOU Koenig Num: [id number] Spec Type: Lesion Subm Dr: Dr. Jorge Day MD HEADER OPERATION: Excision hydrodenitis lesion - right armpit PRE-OP DIAGNOSIS: Right armpit TISSUE SUBMITTED: A- Right axillary lesion -------- MICROSCOPIC DIAGNOSIS A. Skin, right axilla, excision: * Polypoid skin with active chronic inflammation and fibrosis/scar. MICROSCOPIC DESCRIPTION Slides are reviewed. GROSS DESCRIPTION A. Received in formalin labeled with the patient's name and date of . Designated as " right axillary lesion" is a brown, slightly wrinkled hair-bearing, somewhat polypoid, irregular portion of skin, 4.6 x 1.9 x 0.6 cm. The resection margin is perez-white, fibrotic, and inked orange. Sectioning reveals perez-white fibrotic to yellow fatty cut surfaces. [employer] sections are submitted in 2 cassettes. MD 03/08/2025 CPT:01067 -------- Patient Age/Sex Location Account Attending Physician -------- IVOLET WARNER 34/F [facility] [id number] Dr. Jorge Day MD -------- Signed (signature on file) Dr. April Strauss MD 03/16/25 1508 -------- Normal [facility] Comment on above: Performed By: #### P SUIV #### [facility] [address] [place], [place], [address] Plastic Surgery Visit Report on 01-26-2025 Plastic Surgery Visit Report [facility] Plastic Reconstructive Surgery [address] [place] [address] OFFICE VISIT Date of Service: 01/26/25 MR#: [id number] Acct: [id number] Name: VIOLET WARNER Rep #: [id number] : 1990 Provider: Dr. Jorge Day MD Age/Sex: 34/F Location: [facility] Status: Signed Intake Vital Signs 3 01/26/25 09:54 Height 5 ft 4 in Weight: 189 lb BMI 32.4 BP 162/103 H Blood Pressure Location Rt brachial Position Sitting Respiration 18 Pulse 74 Pulse Source Monitor Pulse Oximetry (%) 98 Oxygen Delivery Method room air Intake Visit Reasons: HIDRADENITIS Chief Complaint: Hidradenitis Allergies No Known Allergies Allergy (Unverified 01/26/25 09:20) Medications 3 ???Medication ???Instructions ???Recorded ???Confirmed ???Type amlodipine 5 mg tablet 5 mg PO QDAY 01/26/25 01/26/25 His tory bimekizumab-bkzx 320 mg/2 mL mg subcut 01/26/25 01/26/25 Histor y subcutaneous auto-injector (Bimzelx Autoinjector) lisinopril 20 1 tab PO QDAY 01/26/25 01/26/25 Hi story mg-hydrochlorothiazid e 25 mg tablet pantoprazole 40 mg tablet,delayed 40 mg PO QDAY 01/26/25 01/26/25 H istory release [facility] Medical History Asthma Hypertension Surgical History Neoplasm of soft tissue Family History Other Diabetes Hypertension Social History Smoking Status: Former smoker HPI HIDRADENITIS Details: The patient is a 34-year-old female presenting with the management of hidradenitis suppurativa and associated scar tissue. She has been dealing with hidradenitis suppurativa for several years, experiencing recurrent flare-ups and drainage, mainly in the axillary region. Since October, she has been on [place], which has effectively reduced drainage and odor. The patient reports scar tissue formation due to the chronicity of her condition, leading to occasional itching and bleeding when scratched. She was previously advised against surgery due to persistent drainage but is now considered suitable for surgical management of the scar tissue and skin tags. The patient has a history of hypertension, managed with Lisinopril 20-25 mg daily, with a noted elevated blood pressure of 162/103 mmHg during the visit. Preventative care discussions included mammogram screenings, which she has not yet initiated due to her age and absence of a family history of breast cancer. ROS: - Dermatological: Reports itching and occasional bleeding of scar tissue. Denies keloid formation. - Cardiovascular: Reports elevated blood pressure. Denies other cardiovascular symptoms. - General: Denies other health problems. Attestation: Documentation on this patient encounter was supported using ambient scribe technology/ voice AI technology. The patient consented to recording for the purpose of documenting the encounter. Provider reviewed content of the generated note prior to signature. ROS General General: Yes good health; No fatigue, fever(s) or weight loss HENMT HENMT: No rhinitis, sore throat/mouth sore, nasal congestion, contacts or glaucoma Endo Endocrine: No thyroid disease, polydipsia, heat intolerance, cold intolerance, hepatitis or excessive urine Skin Skin: No Bleeding, bruising, changing moles or suspicious lesion Musc Musculoskeletal: No joint pain, joint stiffness, muscle weakness, back pain, osteoarthritis or Muscle aches/ myalgia Neuro Neurological: No headache(s), No lightheadedness and No numbness Cardio Cardiovascular: No chest pain, pacemaker, fatigue or shortness of breat with exertion Psych Psychiatric: No depression, claustrophobia or anxiety Resp Respiratory: No spitting up, shortness of breath, sleep apnea, asthma, emphysema, TB, Cough or Smoker Gastro Gastrointestinal: No diarrhea, constipation, blood in stool, nausea, vomiting or abdominal bloating Thuan Hematologic: No anemia, No bleeding and No abnormal bleeding Genitourinary: No urinary frequency, blood in urine or incontinence Exam Details - Dermatological: Axilla Presence of scar tissue and skin tags in the axillary region bilaterally. They are hypertrophic and perhaps keloidal. Groin: Brothers stage one disease on the right with a little drainage (minmal, no disease on the left, just scar). Coding Level of Care Code Off vis,new,level 3 Diagnoses Hypertension I10 Asthma J45.909 Hydradenitis L73.2 Assessment and Plan (No Qualifiers) Assessment and Plan (1) Hypertension: Status: Chronic (2) Asthma: Status: Acute (3) Hydradenitis: Statu (more content not included)... Normal [facility] Hepatitis A AB, Totalon 05-0 HEPATITIS A,TOT Negative Normal Negative [facility] Comment on above: Result Comment: Comm ent: The HAV total antibody assay detects both IgG and IgM but does not differentiate between them. A negative result suggests susceptibility to infection. A positive result could be due to vaccination, previously resolved infection or active infection. Testing for HAV IgM should be performed if active HAV infection is suspected. [facility] offers profiles that will automatically reflex positive HAV total antibody results to IgM (e.g., panel #[id number] HAV Antibody w/ Rfx). Performed at: [address] [id number] Sleeve Separator: Vince Holguin PhD, Phone: [phone] Performed By: #### L 3400.8000, L500.4050, L100.0100, L3890.6202, L3100.0300, L3000.0375 #### [facility] [address] [place], [place], [phone] (220 Hepatitis Panel Acuteon 05-0 COMMENT Comment Normal . [facility] Comment on above: Result Comment: Not infected with HCV unless early or acute infection is suspected (which may be delayed in an immunocompromised individual), or other evidence exists to indicate HCV infection. Performed By: #### L 3400.8000, L500.4050, L100.0100, L3890.6202, L3100.0300, L3000.0375 #### [facility] [address] [place], [address] HEP B CORE,IgM Negative Normal Negative [facility] Comment on above: Performed By: #### L 3400.8000, L500.4050, L100.0100, L3890.6202, L3100.0300, L3000.0375 #### [facility] [address] [place], [address] HEP B SURF AG Negative Normal Negative [facility] Comment on above: Performed By: #### L 3400.8000, L500.4050, L100.0100, L3890.6202, L3100.0300, L3000.0375 #### [facility] [address] [place], [address] HEP C VIRUS AB Non-Reactive Normal Non Reactive [facility] Comment on above: Performed By: #### L 3400.8000, L500.4050, L100.0100, L3890.6202, L3100.0300, L3000.0375 #### [facility] [address] [place], [place], [phone] HEPATITIS A-IgM Negative Normal Negative [facility] Comment on above: Result Comment: A ne gative anti-HAV IgM result suggests no recent or current HAV infection. Performed By: #### L 3400.8000, L500.4050, L100.0100, L3890.6202, L3100.0300, L3000.0375 #### [facility] [address] [place], [address] LESION BIOPSY/EXCISIONon Rabia Peck MD 10/17/2024 12:39 PM LESION BIOPSY/EXCISION Date/Time: 10/17/2024 11:00 AM Performed by: Rabia Peck MD Authorized by: Rabia Peck MD Pre-Procedure: Indications: Lesion back The possible diagnosis, procedure, need for treatment, potential complications, side effects, risks of the procedure, including infection, bleeding, recurrence, reaction to medications used, non- healing, scarring, and injury to adjacent structures, were discussed with the patient. The patient expressed understanding and wished to proceed, and informed consent for the procedure obtained. Procedure: Site marked and confirmed by patient. Skin was prepped with Betadine; 20 mL of lidocaine 1% with epi used to locally anesthetize area. Back lesion excision performed. 1 lesion excision(s) performed. Lesion 1 size (maximum dimension including margins): 10 (cm). Comments: The edges were undermined to allow tension-free closure. The skin was closed in layers with the described sutures. Steri-Strips were applied over the incision to reinforce the wound. Length of closure 5 cm The wound was closed with 3-0 Vicryl sutures. Hemostasis obtained with pressure. Specimen(s) sent for pathology. Post-Procedure: Patient tolerated the procedure well. Dressing applied with wound care instructions reviewed with and given to the patient. [facility] Radiology Study observation (narrative) [facility] Quantiferon TB-Gold+on 10-17 QFT MITOGEN EDENILSON > 10.00 Normal . [facility] Comment on above: Performed By: #### L 3400.8000, L500.4050, L100.0100, L3890.6202, L3100.0300, L3000.0375 #### [facility] [address] [place], [address] QFT NIL VALUE 0.04 IU/mL Normal . [facility] Comment on above: Performed By: #### L 3400.8000, L500.4050, L100.0100, L3890.6202, L3100.0300, L3000.0375 #### [facility] [address] [place], [address] QFT TB GOLD+ Comment Normal . [facility] Comment on above: Result Comment: Bc tiFERON-TB Gold Plus is a qualitative indirect test for M tuberculosis infection (including disease) and is intended for use in conjunction with risk assessment, radiography, and other medical and diagnostic evaluations. The QuantiFERON-TB Gold Plus result is determined by subtracting the Nil value from either TB antigen (Ag) value. The Mitogen tube serves as a control for the test. Performed By: #### L 3400.8000, L500.4050, L100.0100, L3890.6202, L3100.0300, L3000.0375 #### [facility] [address] [place], [address] QFT TB POS CRIT Negative Normal Negative [facility] Comment on above: Result Comment: No r esponse to M tuberculosis antigens detected. Infection with M tuberculosis is unlikely, but high risk individuals should be considered for additional testing (ATS/IDSA/CDC Clinical Practice Guidelines, 2017). The reference range is an Antigen minus Nil result of <0.35 IU/mL. The specimen received for QuantiFERON testing was incubated by the ordering institution. Specific procedures outlined in our Directory of Services and in the package insert for the QuantiFERON Gold (In Tube) test must be followed to enable for proper stimulation of cells for the production of interferon gamma. Chemiluminescence immunoassay methodology Performed By: #### L 3400.8000, L500.4050, L100.0100, L3890.6202, L3100.0300, L3000.0375 #### [facility] [address] [place], [address] QFT TB1+ AG EDENILSON 0.07 IU/mL Normal . [facility] Comment on above: Performed By: #### L 3400.8000, L500.4050, L100.0100, L3890.6202, L3100.0300, L3000.0375 #### [facility] [address] [place], [place], [id number] QFT TB2+ AG EDENILSON 0.02 IU/mL Normal . [facility] Comment on above: Performed By: #### L 3400.8000, L500.4050, L100.0100, L3890.6202, L3100.0300, L3000.0375 #### [facility] [address] [place], [place], [id number] Absolute lymphocyte countOrd ered By: Neha Cruz on 10-13-2024 Lymphocytes Auto (Unsp spec) [#/Vol] 2.17 10*3/uL 0.83-4.51 [facility] Absolute neutrophil countOrd ered By: Nehafrancie Cruz on 10-13-2024 Neutrophils (Bld) [#/Vol] 4.0 10*3/uL 2.0-7.7 [facility] Anion gap in Serum or Plasma Ordered By: Neha Cruz on 10-13-2024 Anion gap [Moles/Vol] 10 mmol/L 5-15 [facility] Automated lymphocyte count a s percentage of total leukocytesOrdered By: Neha Cruz on 10-13-2024 Lymphocytes/100 WBC Auto (Unsp spec) 32.0 % 19-41 [facility] BUN/creatinine ratioOrdered By: Nehafrancie Cruz on 10-13-2024 Urea nitrogen/Creatinine [Mass ratio] 16.4 mg/mg 10-20 [facility] Basophil percentageOrdered B y: Neha Cruz on 10-13-2024 Basophils/100 WBC (Bld) 0.9 % 0-1 [facility] Bilirubin, totalOrdered By: Neha Cruz on 10-13-2024 Bilirubin [Mass/Vol] 0.23 mg/dL 0.00-1.30 [facility] CBC W/Diff, Automatedon -2024 Absolute Lymph 2.17 X10 3/uL Normal 0.83-4.51 [facility] Comment on above: Performed By: #### L 3400.8000, L500.4050, L100.0100, L3890.6202, L3100.0300, L3000.0375 #### [facility] [address] [place], [address] Absolute Neut 4.0 X10 3/uL Normal 2.0-7.7 [facility] Comment on above: Performed By: #### L 3400.8000, L500.4050, L100.0100, L3890.6202, L3100.0300, L3000.0375 #### [facility] [address] [place], [address] Basophils/100 WBC (Bld) 0.9 % Normal 0-1 [facility] Comment on above: Performed By: #### L 3400.8000, L500.4050, L100.0100, L3890.6202, L3100.0300, L3000.0375 #### [facility] [address] [place], [address] Eosinophils/100 WBC (Bld) 0.9 % Normal 0-5 [facility] Comment on above: Performed By: #### L 3400.8000, L500.4050, L100.0100, L3890.6202, L3100.0300, L3000.0375 #### [facility] [address] [place], [address] Erythrocyte distribution width (RBC) [Ratio] 13.3 % Normal 11.6-14.6 [facility] Comment on above: Performed By: #### L 3400.8000, L500.4050, L100.0100, L3890.6202, L3100.0300, L3000.0375 #### [facility] [address] [place], [address] Hematocrit (Bld) [Volume fraction] 37.3 % Normal 37-47 [facility] Comment on above: Performed By: #### L 3400.8000, L500.4050, L100.0100, L3890.6202, L3100.0300, L3000.0375 #### [facility] [address] [place], [address] Hemoglobin (Bld) [Mass/Vol] 12.5 g/dL Normal 12.0-15.0 [facility] Comment on above: Performed By: #### L 3400.8000, L500.4050, L100.0100, L3890.6202, L3100.0300, L3000.0375 #### [facility] [address] [place], [address] IG% 0.300 Normal 0.0-0.9 [facility] Comment on above: Result Comment: IG% - Immature Granulocytes (promyelocytes, myelocytes and metamyelocytes) > 1% indicates that a LEFT SHIFT is Present. Performed By: #### L 3400.8000, L500.4050, L100.0100, L3890.6202, L3100.0300, L3000.0375 #### [facility] [address] [place], [address] Lymphocytes/100 WBC (Bld) 32.0 % Normal 19-41 [facility] Comment on above: Performed By: #### L 3400.8000, L500.4050, L100.0100, L3890.6202, L3100.0300, L3000.0375 #### [facility] [address] [place], [address] MCH (RBC) [Entitic mass] 32.3 pg High 27.0-32.0 [facility] Comment on above: Performed By: #### L 3400.8000, L500.4050, L100.0100, L3890.6202, L3100.0300, L3000.0375 #### [facility] [address] [place], [address] MCHC (RBC) [Mass/Vol] 33.5 g/dL Normal 32-36 [facility] Comment on above: Performed By: #### L 3400.8000, L500.4050, L100.0100, L3890.6202, L3100.0300, L3000.0375 #### [facility] [address] [place], [address] MCV (RBC) [Entitic vol] 96.4 fL Normal 81-99 [facility] Comment on above: Performed By: #### L 3400.8000, L500.4050, L100.0100, L3890.6202, L3100.0300, L3000.0375 #### [facility] [address] [place], [address] Monocytes/100 WBC (Bld) 6.9 % Normal 0-10 [facility] Comment on above: Performed By: #### L 3400.8000, L500.4050, L100.0100, L3890.6202, L3100.0300, L3000.0375 #### [facility] [address] [place], [address] Neutrophils/100 WBC (Bld) 59.0 % Normal 47-70 [facility] Comment on above: Performed By: #### L 3400.8000, L500.4050, L100.0100, L3890.6202, L3100.0300, L3000.0375 #### [facility] [address] [place], [address] Nucleated RBC (Bld) [#/Vol] 0 10*3/uL Normal 0-5 [facility] Comment on above: Performed By: #### L 3400.8000, L500.4050, L100.0100, L3890.6202, L3100.0300, L3000.0375 #### [facility] [address] [place], [address] Platelet mean volume (Bld) [Entitic vol] 9.0 fL Normal 6.2-12.0 [facility] Comment on above: Performed By: #### L 3400.8000, L500.4050, L100.0100, L3890.6202, L3100.0300, L3000.0375 #### [facility] [address] [place], [address] Platelets (Bld) [#/Vol] 382 10*3/uL Normal 150-450 [facility] Comment on above: Performed By: #### L 3400.8000, L500.4050, L100.0100, L3890.6202, L3100.0300, L3000.0375 #### [facility] [address] [place], [address] RBC (Bld) [#/Vol] 3.87 10*6/uL Low 4.2-5.4 [facility] Comment on above: Performed By: #### L 3400.8000, L500.4050, L100.0100, L3890.6202, L3100.0300, L3000.0375 #### [facility] [address] [place], [address] RDW SD 47.7 fl High 35.1-43.9 [facility] Comment on above: Performed By: #### L 3400.8000, L500.4050, L100.0100, L3890.6202, L3100.0300, L3000.0375 #### [facility] [address] [place], [address] WBC (Bld) [#/Vol] 6.8 10*3/uL Normal 4.4-11.0 [facility] Comment on above: Performed By: #### L 3400.8000, L500.4050, L100.0100, L3890.6202, L3100.0300, L3000.0375 #### [facility] [address] [place], [address] Carbon dioxide, total [Moles /volume] in Central venous bloodOrdered By: Neha Cruz on 10-13-2024 CO2 [Moles/Vol] 25.2 mmol/L 21.0-32.0 [facility] Chloride assayOrdered By: Karthik sanket Cruz on 10-13-2024 Chloride [Moles/Vol] 102 mmol/L 98-108 [facility] Comprehensive Metabolic Prof ilon 10-13-2024 Albumin [Mass/Vol] 4.3 g/dL Normal 3.5-5.0 [facility] Comment on above: Performed By: #### L 3400.8000, L500.4050, L100.0100, L3890.6202, L3100.0300, L3000.0375 #### [facility] [address] [place], [address] Albumin/Globulin [Mass ratio] 1.0 {ratio} Normal 0.9-2.4 [facility] Comment on above: Performed By: #### L 3400.8000, L500.4050, L100.0100, L3890.6202, L3100.0300, L3000.0375 #### [facility] [address] [place], [address] ALK PHOS 63 U/L Normal 35-104 [facility] Comment on above: Performed By: #### L 3400.8000, L500.4050, L100.0100, L3890.6202, L3100.0300, L3000.0375 #### [facility] [address] [place], [address] ALT [Catalytic activity/Vol] 13 U/L Normal <=34 [facility] Comment on above: Performed By: #### L 3400.8000, L500.4050, L100.0100, L3890.6202, L3100.0300, L3000.0375 #### [facility] [address] [place], [address] AST [Catalytic activity/Vol] 17 U/L Normal <=31 [facility] Comment on above: Performed By: #### L 3400.8000, L500.4050, L100.0100, L3890.6202, L3100.0300, L3000.0375 #### [facility] [address] [place], [address] Bilirubin [Mass/Vol] 0.23 mg/dL Normal 0.00-1.30 [facility] Comment on above: Performed By: #### L 3400.8000, L500.4050, L100.0100, L3890.6202, L3100.0300, L3000.0375 #### [facility] [address] [place], [address] BUN/CRE 16.4 RATIO Normal 10-20 [facility] Comment on above: Performed By: #### L 3400.8000, L500.4050, L100.0100, L3890.6202, L3100.0300, L3000.0375 #### [facility] [address] [place], [address] Calcium [Mass/Vol] 9.6 mg/dL Normal 7.6-11.0 [facility] Comment on above: Performed By: #### L 3400.8000, L500.4050, L100.0100, L3890.6202, L3100.0300, L3000.0375 #### [facility] [address] [place], [address] Chloride [Moles/Vol] 102 mmol/L Normal 98-108 [facility] Comment on above: Performed By: #### L 3400.8000, L500.4050, L100.0100, L3890.6202, L3100.0300, L3000.0375 #### [facility] [address] [place], [address] CO2 [Moles/Vol] 25.2 mmol/L Normal 21.0-32.0 [facility] Comment on above: Performed By: #### L 3400.8000, L500.4050, L100.0100, L3890.6202, L3100.0300, L3000.0375 #### [facility] [address] [place], [address] Creatinine [Mass/Vol] 0.95 mg/dL Normal 0.70-1.20 [facility] Comment on above: Performed By: #### L 3400.8000, L500.4050, L100.0100, L3890.6202, L3100.0300, L3000.0375 #### [facility] [address] [place], [address] GAP 10 Normal 5-15 [facility] Comment on above: Performed By: #### L 3400.8000, L500.4050, L100.0100, L3890.6202, L3100.0300, L3000.0375 #### [facility] [address] [place], [address] GFR/1.73 sq M.predicted among non-blacks MDRD (S/P/Bld) [Vol rate/Area] 80 mL/min/{1.73_m2} Normal >60 [facility] Comment on above: Result Comment: mL/m in/1.73m2 CKD-EPI Creatinine Equation (2020) Performed By: #### L 3400.8000, L500.4050, L100.0100, L3890.6202, L3100.0300, L3000.0375 #### [facility] [address] [place], [address] Globulin (S) [Mass/Vol] 4.2 g/dL Normal 2.2-4.2 [facility] Comment on above: Performed By: #### L 3400.8000, L500.4050, L100.0100, L3890.6202, L3100.0300, L3000.0375 #### [facility] [address] [place], [address] Glucose [Mass/Vol] 92 mg/dL Normal 70-99 [facility] Comment on above: Performed By: #### L 3400.8000, L500.4050, L100.0100, L3890.6202, L3100.0300, L3000.0375 #### [facility] [address] [place], [address] Potassium [Moles/Vol] 3.7 mmol/L Normal 3.3-5.1 [facility] Comment on above: Performed By: #### L 3400.8000, L500.4050, L100.0100, L3890.6202, L3100.0300, L3000.0375 #### [facility] [address] [place], [address] Sodium [Moles/Vol] 137 mmol/L Normal 133-145 [facility] Comment on above: Performed By: #### L 3400.8000, L500.4050, L100.0100, L3890.6202, L3100.0300, L3000.0375 #### [facility] [address] [place], [address] T PROT 8.6 g/dL High 5.9-8.4 [facility] Comment on above: Performed By: #### L 3400.8000, L500.4050, L100.0100, L3890.6202, L3100.0300, L3000.0375 #### [facility] [address] [place], [address] Urea nitrogen [Mass/Vol] 16 mg/dL Normal 4-19 [facility] Comment on above: Performed By: #### L 3400.8000, L500.4050, L100.0100, L3890.6202, L3100.0300, L3000.0375 #### [facility] [address] [place], [address] Eosinophil percentageOrdered By: Neha Cruz on 10-13-2024 Eosinophils/100 WBC (Bld) 0.9 % 0-5 [facility] Erythrocyte distribution wid th ratioOrdered By: Nehafrancie Cruz on 10-13-2024 Erythrocyte distribution width (RBC) [Ratio] 13.3 % 11.6-14.6 [facility] Erythrocyte distribution wid th standard deviationOrdered By: Neha Cruz on 10-13-2024 Erythrocyte distribution width (RBC) [Ratio] 47.7 fl High 35.1-43.9 [facility] Glomerular filtration rate ( GFR) estimation/1.73 sq m using serum, plasma, or whole bOrdered By: Neha Cruz on 10-13-2024 GFR/1.73 sq M.predicted among non-blacks MDRD (S/P/Bld) [Vol rate/Area] 80 mL/min/{1.73_m2} >60 [facility] Comment on above: mL/min/1.73m2 CKD-EP I Creatinine Equation (2020) Hematocrit Auto (Bld) [Volum e fraction]Ordered By: Neha Cruz on 10-13-2024 Hematocrit (Bld) [Volume fraction] 37.3 % 37-47 [facility] Hemoglobin measurementOrdere d By: Neha Cruz on 10-13-2024 Hemoglobin (Bld) [Mass/Vol] 12.5 g/dL 12.0-15.0 [facility] Hepatitis B Surface Antibody on 10-13-2024 HEP B Surf Ab REAC Normal [facility] Comment on above: Result Comment: <8.5 mIU/mL: Non-Reactive 8.5<= x <11.5 mIU/mL: Indeterminate >=11.5 mIU/mL: Reactive Non Reactive: Inconsistent with immunity less than <10 mIU/mL Reactive: Consistent with immunity greater than or equal to 10 mIU/mL Performed By: #### L 3400.8000, L500.4050, L100.0100, L3890.6202, L3100.0300, L3000.0375 #### [facility] [address] [place], [address] Immature granulocytes/100 WB C Auto (Bld)Ordered By: Neha Cruz on 10-13-2024 Immature granulocytes/100 WBC (Bld) 0.300 % 0.0-0.9 [facility] Comment on above: IG% - Immature Granu locytes (promyelocytes, myelocytes and metamyelocytes) > 1% indicates that a LEFT SHIFT is Present. Laboratory - Chemistry and C hemistry - challengeOrdered By: Neha Cruz on 10-13-2024 AST [Catalytic activity/Vol] 17 U/L <32 [facility] MCV (mean corpuscular volume ) determinationOrdered By: Neha Cruz on 10-13-2024 MCV (RBC) [Entitic vol] 96.4 fL 81-99 [facility] Mean corpuscular hemoglobin (MCH) determinationOrdered By: Neha Cruz on 10-13-2024 MCH (RBC) [Entitic mass] 32.3 pg High 27.0-32.0 [facility] Mean corpuscular hemoglobin concentration (MCHC) determinationOrdered By: Neha Cruz on 10-13-2024 MCHC (RBC) [Mass/Vol] 33.5 g/dL 32-36 [facility] Mean platelet volume determi nationOrdered By: Neha Cruz on 10-13-2024 Platelet mean volume (Bld) [Entitic vol] 9.0 fL 6.2-12.0 [facility] Monocyte percentageOrdered B y: Neha Cruz on 10-13-2024 Monocytes/100 WBC (Bld) 6.9 % 0-10 [facility] Neutrophil percentageOrdered By: Neha Cruz on 10-13-2024 Neutrophils/100 WBC (Bld) 59.0 % 47-70 [facility] No Panel InformationOrdered By: Neha Cruz on 10-13-2024 Hepatitis C Antibody Comment Comment . [facility] Comment on above: Not infected with HC V unless early or acute infection issuspected (which may be delayed in an immunocompromisedindividual), or other evidence exists to indicate HCVinfection. Nucleated red blood cell per centageOrdered By: Neha Cruz on 10-13-2024 Nucleated RBC/100 WBC (Bld) [Ratio] 0 % 0-5 [facility] Platelet countOrdered By: Karthik Cruz on 10-13-2024 Platelets (Bld) [#/Vol] 382 10*3/uL 150-450 [facility] Potassium measurement (mass/ volume)Ordered By: Neha Cruz on 10-13-2024 Potassium (Unsp spec) [Mass/Vol] 3.7 mmol/L 3.3-5.1 [facility] Qualitative QuantiFERON-TB g old in tube testOrdered By: Neha Cruz on 10-13-2024 M. tuberculosis tuberculin stim IFN-g Ql (Bld) 0.07 IU/mL . [facility] RBC Auto (Bld) [#/Vol]Ordere d By: Neha Cruz on 10-13-2024 RBC (Bld) [#/Vol] 3.87 10*6/uL Low 4.2-5.4 [facility] Serum creatinine measurement (mass/volume)Ordered By: Neha Cruz on 10-13-2024 Creatinine [Mass/Vol] 0.95 mg/dL 0.70-1.20 [facility] Serum globulin measurementOr dered By: Neha Cruz on 10-13-2024 Globulin (S) [Mass/Vol] 4.2 g/dL 2.2-4.2 [facility] Serum glucose measurement (m ass/volume)Ordered By: Neha Cruz on 10-13-2024 Glucose [Mass/Vol] 92 mg/dL 70-99 [facility] Serum hepatitis B virus surf jessica antibody detectionOrdered By: Neha Cruz on 10-13-2024 HBV surface Ab Ql (S) REAC [facility] Comment on above: <8.5 mIU/mL: Non-Dennard ctive8.5<= x <11.5 mIU/mL: Indeterminate>=11.5 mIU/mL: Reactive Non Reactive: Inconsistent with immunity less than <10 mIU/mL Reactive: Consistent with immunity greater than or equal to 10 mIU/mL Serum or plasma alanine ramirez otransferase (ALT) measurementOrdered By: Neha Cruz on 10-13-2024 ALT [Catalytic activity/Vol] 13 U/L <35 [facility] Serum or plasma albumin noble urement (mass/volume)Ordered By: Neha Cruz on 10-13-2024 Albumin [Mass/Vol] 4.3 g/dL 3.5-5.0 [facility] Serum or plasma albumin/glob ulin mass ratioOrdered By: Neha Cruz on 10-13-2024 Albumin/Globulin [Mass ratio] 1.0 {ratio} 0.9-2.4 [facility] Serum or plasma alkaline moises sphatase measurementOrdered By: Neha Cruz on 10-13-2024 ALP [Catalytic activity/Vol] 63 U/L 35-104 [facility] Serum or plasma calcium noble urement (mass/volume)Ordered By: Neha Cruz on 10-13-2024 Calcium [Mass/Vol] 9.6 mg/dL 7.6-11.0 [facility] Serum or plasma hepatitis B virus surface antigen detection by immunoassayOrdered By: Neha Cruz on 10-13-2024 HBV surface Ag IA Ql Negative Negative [facility] Serum or plasma urea nitroge n measurement (mass/volume)Ordered By: Neha Cruz on 10-13-2024 Urea nitrogen [Mass/Vol] 16 mg/dL 4-19 [facility] Sodium levelOrdered By: Didi Cruz on 10-13-2024 Sodium [Moles/Vol] 137 mmol/L 133-145 [facility] Total proteinOrdered By: Izabela Cruz on 10-13-2024 Protein [Mass/Vol] 8.6 g/dL High 5.9-8.4 [facility] White blood cell (WBC) count Ordered By: Neha Cruz on 10-13-2024 WBC (Bld) [#/Vol] 6.8 10*3/uL 4.4-11.0 [facility] US PLEURAL SPACE/CHEST/MEDon 09-25-2024 US PLEURAL SPACE/CHEST/MED EXAM: US PLEURAL SPACE/CHEST/MED HISTORY: Edema to RUE only for 1 year COMPARISON: None. TECHNIQUE: Focal sonography was performed apparently in an area of palpable concern. It is labeled left midback. FINDINGS: On the images obtained I am not obviously confirming any abnormal soft tissue mass. There was an isoechoic area that was measured at 7.5 x 1.6 x 5.7 cm. Its echotexture is suggestive of subcutaneous fat and benign structures. Conceivably it could be related to a lipoma. Correlation with physical exam is suggested. IMPRESSION: 1. No definite evidence of abnormal soft tissue mass or ultrasound abnormality was seen in the left midback. 2. There was an area measured whose echotexture is suggestive of subcutaneous soft tissue. If there is a very discrete large well-defined area of palpable abnormality, conceivably a lipoma could be present. Clinical correlation is needed. Normal [facility] CBCon 09-09-2024 ABSOLUTE BAS 0.1 10*3/uL Normal 0.0-0.2 [facility] Comment on above: Performed By: #### C MPF, LIP2, ACBC #### Testing performed at [address] [address] ABSOLUTE EOS 0.1 10*3/uL Normal 0.0-0.7 [facility] Comment on above: Performed By: #### C MPF, LIP2, ACBC #### Testing performed at [address] [address] ABSOLUTE NEUTROPHIL COUNT 2.8 10*3/uL Normal 1.4-6.5 [facility] Comment on above: Performed By: #### C MPF, LIP2, ACBC #### Testing performed at [address] [address] Basophils/100 WBC (Bld) 1.0 % Normal 0.0-2.0 [facility] Comment on above: Performed By: #### C MPF, LIP2, ACBC #### Testing performed at [address] [address] DTYPE AUTO DIFF Normal [facility] Comment on above: Performed By: #### C MPF, LIP2, ACBC #### Testing performed at [address] [address] Eosinophils/100 WBC (Bld) 2.2 % Normal 0.0-11.0 [facility] Comment on above: Performed By: #### C MPF, LIP2, ACBC #### Testing performed at [address] [address] Lymphocytes (Bld) [#/Vol] 2.3 10*3/uL Normal 1.2-3.4 [facility] Comment on above: Performed By: #### C MPF, LIP2, ACBC #### Testing performed at [address] [address] Lymphocytes/100 WBC (Bld) 40.1 % Normal 20.0-55.0 [facility] Comment on above: Performed By: #### C MPF, LIP2, ACBC #### Testing performed at [address] [address] Monocytes (Bld) [#/Vol] 0.5 10*3/uL Normal 0.0-0.7 [facility] Comment on above: Performed By: #### C MPF, LIP2, ACBC #### Testing performed at [address] [address] Monocytes/100 WBC (Bld) 9.0 % Normal 0.0-10.0 [facility] Comment on above: Performed By: #### C MPF, LIP2, ACBC #### Testing performed at [address] [address] Neutrophils/100 WBC (Bld) 47.7 % Normal 37.0-75.0 [facility] Comment on above: Performed By: #### C MPF, LIP2, ACBC #### Testing performed at [address] [address] Erythrocyte distribution width (RBC) [Ratio] 13.8 % Normal 11.5-14.5 [facility] Comment on above: Performed By: #### C MPF, LIP2, ACBC #### Testing performed at [address] [address] Hematocrit (Bld) [Volume fraction] 41.1 % Normal 36.0-48.0 [facility] Comment on above: Performed By: #### C MPF, LIP2, ACBC #### Testing performed at [address] [address] Hemoglobin (Bld) [Mass/Vol] 13.9 g/dL Normal 12.0-16.0 [facility] Comment on above: Performed By: #### C MPF, LIP2, ACBC #### Testing performed at [address] [address] MCH (RBC) [Entitic mass] 32.8 pg Normal 26.0-35.0 [facility] Comment on above: Performed By: #### C MPF, LIP2, ACBC #### Testing performed at [address] [address] MCHC (RBC) [Mass/Vol] 33.8 g/dL Normal 27.0-37.0 [facility] Comment on above: Performed By: #### C MPF, LIP2, ACBC #### Testing performed at [address] [address] MCV (RBC) [Entitic vol] 97.0 fL Normal 80.0-100.0 [facility] Comment on above: Performed By: #### C MPF, LIP2, ACBC #### Testing performed at [address] [address] Platelet mean volume (Bld) [Entitic vol] 6.8 fL Low 7.4-11.0 [facility] Comment on above: Performed By: #### C MPF, LIP2, ACBC #### Testing performed at [address] [address] Platelets (Bld) [#/Vol] 425 10*3/uL High 130-400 [facility] Comment on above: Performed By: #### C MPF, LIP2, ACBC #### Testing performed at [address] [address] RBC (Bld) [#/Vol] 4.24 10*6/uL Normal 4.0-5.4 [facility] Comment on above: Performed By: #### C MPF, LIP2, ACBC #### Testing performed at [facility] [address] [place] [address] WBC (Bld) [#/Vol] 5.9 10*3/uL Normal 3.6-11.0 [facility] Comment on above: Performed By: #### C MPMarlena, MAYCO, JOAQUIN #### Testing performed at [id number] [place] [address] CBC, EDIF, PLATELETon 2024 ABSOLUTE BASOPHIL COUNT 0.1 10*3/uL 0.0 - 0.2 10*3/uL [facility] Basophils/100 WBC (Bld) 1 % 0.0 - 2.0 % [facility] Differential cell count method Nom (Bld) AUTO DIFF % [facility] Eosinophils (Bld) [#/Vol] 0.1 10*3/uL 0.0 - 0.7 10*3/uL [facility] Eosinophils/100 WBC (Bld) 2.2 % 0.0 - 11.0 % [facility] Erythrocyte distribution width (RBC) [Ratio] 13.8 % 11.5 - 14.5 % [facility] Hematocrit (Bld) [Volume fraction] 41.1 % 36.0 - 48.0 % [facility] Hemoglobin (Bld) [Mass/Vol] 13.9 g/dL [facility] Interpretation and review of laboratory results Abnormal [facility] Lymphocytes (Bld) [#/Vol] 2.3 10*3/uL 1.2 - 3.4 10*3/uL [facility] Lymphocytes/100 WBC (Bld) 40.1 % 20.0 - 55.0 % [facility] MCH (RBC) [Entitic mass] 32.8 pg 26. 0 - 35.0 PG [facility] MCHC (RBC) [Mass/Vol] 33.8 g/dL [facility] MCV (RBC) [Entitic vol] 97 fL A [facility] Monocytes (Bld) [#/Vol] 0.5 10*3/uL 0.0 - 0.7 10*3/uL [facility] Monocytes/100 WBC (Bld) 9 % 0.0 - 10.0 % [facility] Neutrophils (Bld) [#/Vol] 2.8 10*3/uL 1.4 - 6.5 10*3/uL [facility] Neutrophils/100 WBC (Bld) 47.7 % 37.0 - 75.0 % [facility] Platelet mean volume (Bld) [Entitic vol] 6.8 fL Low [facility] Platelets (Bld) [#/Vol] 425 10*3/uL High 130 - 400 10*3/uL [facility] RBC (Bld) [#/Vol] 4.24 10*6/uL 4.0 - 5.4 10*6/uL [facility] WBC (Bld) [#/Vol] 5.9 10*3/uL 3.6 - 11.0 10*3/uL [facility] CMP FASTINGon 09-09-2024 A:G RATIO 1.0 RATIO Normal [facility] Comment on above: Performed By: #### C MPF, LIP2, ACBC #### Testing performed at [address] [address] ALBUMIN 4.6 G/dl Normal 3.5-5.0 [facility] Comment on above: Performed By: #### C MPF, LIP2, ACBC #### Testing performed at [address] [address] ALP [Catalytic activity/Vol] 61 U/L Normal 38-126 [facility] Comment on above: Performed By: #### C MPF, LIP2, ACBC #### Testing performed at [address] [address] ALT [Catalytic activity/Vol] 22 U/L Normal <35 [facility] Comment on above: Performed By: #### C MPF, LIP2, ACBC #### Testing performed at [address] [address] AST [Catalytic activity/Vol] 35 U/L Normal 14-36 [facility] Comment on above: Performed By: #### C MPF, LIP2, ACBC #### Testing performed at [address] [address] Bilirubin [Mass/Vol] 0.4 mg/dL Normal 0.2-1.3 [facility] Comment on above: Performed By: #### C MPF, LIP2, ACBC #### Testing performed at [address] [address] Calcium [Mass/Vol] 9.6 mg/dL Normal 8.4-10.2 [facility] Comment on above: Performed By: #### C MPF, LIP2, ACBC #### Testing performed at [address] [address] Chloride [Moles/Vol] 99 mmol/L Normal 98-107 [facility] Comment on above: Result Comment: Samuel sanford note: Triglyceride levels of 600mg/dL or higher may positively bias chloride results by approximately 2.1 mmol Performed By: #### C MPF, LIP2, ACBC #### [place] [address] CO2 [Moles/Vol] 28 mmol/L Normal 22-30 [facility] Comment on above: Performed By: #### C MPF, LIP2, ACBC #### Testing performed at [address] [address] Creatinine [Mass/Vol] 1.00 mg/dL Normal 0.70-1.20 [facility] Comment on above: Performed By: #### C MPF, LIP2, ACBC #### Testing performed at [address] [address] EST. GFR, 81 ml/min/1.73sq.m [facility] Comment on above: Performed By: #### C MPF, LIP2, ACBC #### Testing performed at [address] [address] EST. GFR,Non 67 ml/min/1.73sq.m [facility] Comment on above: Performed By: #### C MPF, LIP2, ACBC #### Testing performed at [address] [address] GFR Information Average GFR for 30-3 9 years old = 107. Normal [facility] Comment on above: Result Comment: Cylinder Inspector shobha Kidney disease, GFR = <60. Kidney failure, GFR = <15. The GFR estimate is not adjusted for extreme body surface area or acute process, nor has it been validated for women or ethnic groups other than and . Performed By: #### C MPF, LIP2, ACBC #### Testing performed at [address] [address] Glucose [Mass/Vol] 105 mg/dL High 70-100 [facility] Comment on above: Result Comment: NORMAL <100 mg/dL PREDIABETES 101-126 mg/dL DIABETES 126 mg/dL or higher Performed By: #### C MPF, LIP2, ACBC #### Testing performed at [address] [address] Potassium [Moles/Vol] 4.8 mmol/L Normal 3.5-5.1 [facility] Comment on above: Performed By: #### C MPF, LIP2, ACBC #### Testing performed at [address] [address] Protein [Mass/Vol] 9.0 g/dL High 6.3-8.2 [facility] Comment on above: Performed By: #### C MPF, LIP2, ACBC #### Testing performed at [address] [address] Sodium [Moles/Vol] 137 mmol/L Normal 137-145 [facility] Comment on above: Performed By: #### C MPF, LIP2, ACBC #### Testing performed at [address] [address] Urea nitrogen [Mass/Vol] 25 mg/dL High 7-20 [facility] Comment on above: Performed By: #### C MPF, LIP2, ACBC #### Testing performed at [address] [address] COMPREHENSIVE METABOLIC PANE Joesph 09-09-2024 Albumin [Mass/Vol] 4.6 G/dl 3.5 - 5.0 G/dl [facility] Albumin/Globulin [Mass ratio] 1 {ratio} RATIO [facility] ALP [Catalytic activity/Vol] 61 U/L [facility] ALT [Catalytic activity/Vol] 22 U/L NINF [facility] AST [Catalytic activity/Vol] 35 U/L [facility] Bilirubin [Mass/Vol] 0.4 mg/dL [facility] Calcium [Mass/Vol] 9.6 mg/dL [facility] Chloride [Moles/Vol] 99 mmol/L [facility] Comment on above: Please note: Triglyc eride levels of 600mg/dL or higher may positively bias chloride results by approximately 2.1 mmol CO2 [Moles/Vol] 28 mmol/L [facility] Creatinine [Mass/Vol] 1 mg/dL [facility] GFR COMMENT Average GFR for 30-3 9 years old = 107. [facility] Comment on above: Chronic Kidney disea se, GFR = <60. Kidney failure, GFR = <15. The GFR estimate is not adjusted for extreme body surface area or acute process, nor has it been validated for women or ethnic groups other than and . GFR/1.73 sq M.predicted among blacks MDRD (S/P/Bld) [Vol rate/Area] 81 mL/min/{1.73_m2} ml/min/1.73sq .m [facility] GFR/1.73 sq M.predicted among non-blacks MDRD (S/P/Bld) [Vol rate/Area] 67 mL/min/{1.73_m2} ml/min/1.73sq .m [facility] Glucose post fast [Mass/Vol] 105 mg/dL High [facility] Comment on above: NORMAL <100 mg/dL PREDIABETES 101-126 mg/dL DIABETES 126 mg/dL or higher Interpretation and review of laboratory results Abnormal [facility] Potassium [Moles/Vol] 4.8 mmol/L [facility] Protein [Mass/Vol] 9 g/dL High [facility] Sodium [Moles/Vol] 137 mmol/L [facility] Urea nitrogen [Mass/Vol] 25 mg/dL High [facility] HEMOGLOBIN A1Con 09-09-2024 Glucose [Mass/Vol] 108 mg/dL [facility] HbA1c (Bld) [Mass fraction] 5.4 % 0 - 6 % [facility] Comment on above: NORMAL <5.7% PREDIABETES 5.7-6.4% DIABETES 6.5% OR HIGHER [facility] Glucose [Mass/Vol] 108 mg/dL Normal [facility] Comment on above: Performed By: #### H A1CT #### Testing performed at [address] [address] HbA1c (Bld) [Mass fraction] 5.4 % Normal 0-6 [facility] Comment on above: Result Comment: NORMAL <5.7% PREDIABETES 5.7-6.4% DIABETES 6.5% OR HIGHER Performed By: #### H A1CT #### Testing performed at [address] [address] LIPID PANEL W CALCULATED LDL on 09-09-2024 Cholesterol [Mass/Vol] 154 mg/dL [facility] Cholesterol in HDL [Mass/Vol] 43 mg/dL [facility] Cholesterol in LDL [Mass/Vol] 99 mg/dL NINF [facility] Cholesterol in VLDL [Mass/Vol] 12 mg/dL [facility] Cholesterol.total/Choles terol in HDL [Mass ratio] 3.58 {ratio} RATIO [facility] Comment on above: RISK TOTAL/HDL RATIO MEN WOMEN 1/2 AVERAGE 3.43 3.27 AVERAGE 4.97 4.44 2X AVERAGE 9.55 7.05 3X AVERAGE 23.99 11.04 Triglyceride [Mass/Vol] 59 mg/dL [facility] LIPID PROFILEon 09-09-2024 Cholesterol [Mass/Vol] 154 mg/dL Normal 107-217 [facility] Comment on above: Performed By: #### C MPF, LIP2, ACBC #### Testing performed at [address] [address] Cholesterol in HDL [Mass/Vol] 43 mg/dL Normal 33-75 [facility] Comment on above: Performed By: #### C MPF, LIP2, ACBC #### Testing performed at [address] [address] Cholesterol in LDL [Mass/Vol] 99 mg/dL Normal <100 [facility] Comment on above: Performed By: #### C MPF, LIP2, ACBC #### Testing performed at [address] [address] Cholesterol in VLDL [Mass/Vol] 12 mg/dL Normal 5-25 [facility] Comment on above: Performed By: #### C MPF, LIP2, ACBC #### Testing performed at [address] [address] Cholesterol.total/Choles terol in HDL [Mass ratio] 3.58 {ratio} Normal [facility] Comment on above: Result Comment: RISK TOTAL/HDL RATIO MEN WOMEN 1/2 AVERAGE 3.43 3.27 AVERAGE 4.97 4.44 2X AVERAGE 9.55 7.05 3X AVERAGE 23.99 11.04 Performed By: #### C MPF, LIP2, ACBC #### [place] [address] Triglyceride [Mass/Vol] 59 mg/dL Normal 0-150 [facility] Comment on above: Performed By: #### C MPF, LIP2, ACBC #### [place] [address] No Panel Informationon 09-09 [facility] TSH W/FT4 REFLEXon 5 TSH Qn 0.587 m[IU]/L [facility] TSH,REFLEX FREE T4on 025 TSH,REFLEX FREE T4 0.587 uIU/ML Normal 0.465-4.680 [facility] Comment on above: Performed By: #### R TSH #### Testing performed at [address] [id number] CBC, EDIF, PLATELETon 2022 ABSOLUTE BASOPHIL COUNT 0.0 10*3/uL 0.0 - 0.2 10*3/uL [facility] Basophils/100 WBC (Bld) 0.5 % 0.0 - 2.0 % [facility] Differential cell count method Nom (Bld) AUTO DIFF % [facility] Eosinophils (Bld) [#/Vol] 0.3 10*3/uL 0.0 - 0.7 10*3/uL [facility] Eosinophils/100 WBC (Bld) 4.9 % 0.0 - 11.0 % [facility] Erythrocyte distribution width (RBC) [Ratio] 13.2 % 11.5 - 14.5 % [facility] Hematocrit (Bld) [Volume fraction] 35.5 % Low 36.0 - 48.0 % [facility] Hemoglobin (Bld) [Mass/Vol] 12.1 g/dL [facility] Interpretation and review of laboratory results Abnormal [facility] Lymphocytes (Bld) [#/Vol] 1.1 10*3/uL Low 1.2 - 3.4 10*3/uL [facility] Lymphocytes/100 WBC (Bld) 18.2 % Low 20.0 - 55.0 % [facility] MCH (RBC) [Entitic mass] 33.7 pg 26. 0 - 35.0 PG [facility] MCHC (RBC) [Mass/Vol] 34.0 g/dL [facility] MCV (RBC) [Entitic vol] 99.[address] [facility] Monocytes (Bld) [#/Vol] 0.7 10*3/uL 0.0 - 0.7 10*3/uL [facility] Monocytes/100 WBC (Bld) 11.2 % High 0.0 - 10.0 % [facility] Neutrophils (Bld) [#/Vol] 4.1 10*3/uL 1.4 - 6.5 10*3/uL [facility] Neutrophils/100 WBC (Bld) 65.2 % 37.0 - 75.0 % [facility] Platelet mean volume (Bld) [Entitic vol] 6.7 fL Low [facility] Platelets (Bld) [#/Vol] 316 10*3/uL 130 - 400 10*3/uL [facility] RBC (Bld) [#/Vol] 3.58 10*6/uL Low 4.0 - 5.4 10*6/uL [facility] WBC (Bld) [#/Vol] 6.2 10*3/uL 3.6 - 11.0 10*3/uL [facility] COMPREHENSIVE METABOLIC PANE Joesph 02-02-2023 Albumin [Mass/Vol] 3.3 G/dl Low 3.5 - 5.0 G/dl [facility] Albumin/Globulin [Mass ratio] 1.0 {ratio} RATIO [facility] ALP [Catalytic activity/Vol] 57 U/L [facility] ALT [Catalytic activity/Vol] 24 U/L NINF [facility] AST [Catalytic activity/Vol] 25 U/L [facility] Bilirubin [Mass/Vol] 0.5 mg/dL [facility] Calcium [Mass/Vol] 8.1 mg/dL Low [facility] Chloride [Moles/Vol] 107 mmol/L [facility] Comment on above: Please note: Triglyc eride levels of 600mg/dL or higher may positively bias chloride results by approximately 2.1 mmol CO2 [Moles/Vol] 25 mmol/L [facility] Creatinine [Mass/Vol] 0.69 mg/dL Low [facility] GFR COMMENT Average GFR for 30-3 9 years old = 107. [facility] Comment on above: Chronic Kidney disea se, GFR = <60. Kidney failure, GFR = <15. The GFR estimate is not adjusted for extreme body surface area or acute process, nor has it been validated for women or ethnic groups other than and . GFR/1.73 sq M.predicted among blacks MDRD (S/P/Bld) [Vol rate/Area] 126 mL/min/{1.73_m2} ml/min/1.73sq .m [facility] GFR/1.73 sq M.predicted among non-blacks MDRD (S/P/Bld) [Vol rate/Area] 104 mL/min/{1.73_m2} ml/min/1.73sq .m [facility] Glucose post fast [Mass/Vol] 105 mg/dL High [facility] Comment on above: NORMAL <100 mg/dL PREDIABETES 101-126 mg/dL DIABETES 126 mg/dL or higher Interpretation and review of laboratory results Abnormal [facility] Potassium [Moles/Vol] 3.0 mmol/L Low [facility] Protein [Mass/Vol] 6.7 g/dL [facility] Sodium [Moles/Vol] 139 mmol/L [facility] Urea nitrogen [Mass/Vol] 8 mg/dL [facility] HCG ( test) Ql (U)o n 02-02-2023 [facility] HCG QUALITATIVE, URINEon HCG ( test) Ql (U) Negative NEGATIVE [facility] LIPASEon 02-02-2023 Lipase [Catalytic activity/Vol] 26 U/L 23 - 300 U/L [facility] NOVEL CORONAVIRUS LAB 1 - NA SOPHARYNGEALon 02-02-2023 NARRATIVE -1 This test was performed using isothermal GISELA and has been approved as Emergency Use Authorization (EUA) for the qualitative detection [id number] nucleic acid. [facility] SARS-CoV-2 (COVID-19) RNA GISELA+probe Ql (Unsp spec) Not detected NOT DETECTED [facility] Comment on above: Negative results do not preclude SARS-CoV-2 infection and should not be used as the sole basis for treatment or other patient management decisions. Optimum specimen types and timing for peak viral levels during infections caused by SARS-CoV-2 has not been determined. The possibility of a false negative result should especially be considered if the patient's recent exposures or clinical presentation suggest that SARS-CoV-2 infection is probable, and diagnostic tests for other causes of illness (e.g., other respiratory illness) are negative. Collection of a new specimen and re-testing may be necessary if the patient is critically ill or clinically deteriorating. [facility] No Panel Informationon 02-02 Interpretation and review of laboratory results Abnormal [facility] URINALYSIS, MACROon 02-03-20 23 Bilirubin Ql (U) SMALL Abnormal NEGATIVE [facility] Clarity (U) HAZY Abnormal CLEAR [facility] Color (U) YELLOW YELLOW [facility] Glucose Test strip (U) [Mass/Vol] Negative NEGATIVE mg/dl [facility] Hemoglobin Ql (U) Negative NEGATIVE [facility] Ketones (U) [Mass/Vol] TRACE Abnormal NEGAT SOLITARIO mg/dl [facility] Leukocyte esterase Test strip Ql (U) Negative NEGATIVE [facility] Nitrite Ql (U) Negative NEGATIVE [facility] pH (U) 5.5 [pH] 5.0 - 7.0 [facility] Protein Ql (U) 100 mg/dl Abnormal NEGATIVE [facility] Specific gravity (U) [Rel density] >1.030 High 1.010 - 1.025 [facility] Urobilinogen (U) [Mass/Vol] 1.0 mg/dL [facility] URINE MICROSCOPICon 02-03-20 23 Bacteria LM.HPF (Urine sed) [#/Area] 1+ Abnormal NEGATIVE [facility] Casts LM.LPF (Urine sed) [#/Area] NONE NONE /LPF [facility] Crystals LM Nom (Urine sed) NONE NONE [facility] Epithelial cells LM Ql (Urine sed) 10 TO 20 /HPF [facility] Mucus Ql (Urine sed) 3+ Abnormal NEGATIVE [facility] RBC LM.HPF (Urine sed) [#/Area] 1 TO 5 NEGATIVE /HPF [facility] Urine sediment comments LM Antione (Urine sed) CULTURE CRITERIA NOT MET, NO CULTURE PERFORMED. [facility] WBC LM.HPF (Urine sed) [#/Area] Negative NEGATIVE /HPF [facility] US Abdomen RUQon 02-02-2023 IMPRESSION: Ultrasound study of the right upper quadrant of the abdomen is grossly unremarkable. RADIOLOGY EXAM: US ABDOMEN RUQ/LIVER/GB HISTORY: Upper abd pain COMPARISON: None TECHNIQUE: Ultrasound study of the right upper quadrant of the abdomen was performed. FINDINGS: In the gallbladder no evidence of gallstones or wall thickening. No obvious pericholecystic fluid. Common bile duct measures 0.51 cm in diameter which is within normal limits. Liver appears unremarkable without obvious mass or intrahepatic ductal dilatation. Limited views of the pancreas are grossly unremarkable. Right kidney measures 10.8 x 4.2 x 5.9 cm in longitudinal, AP and transverse dimensions. Renal cortex appears grossly unremarkable measuring approximately 1.2 cm in thickness. No obvious renal mass or evidence of obstructive uropathy. No obvious calculus. Visualized abdominal aorta appears grossly unremarkable. RADIOLOGY Carlos Dobson MD - 02/02/2023 EXAM: US ABDOMEN RUQ/LIVER/GB HISTORY: Upper abd pain COMPARISON: None TECHNIQUE: Ultrasound study of the right upper quadrant of the abdomen was performed. FINDINGS: In the gallbladder no evidence of gallstones or wall thickening. No obvious pericholecystic fluid. Common bile duct measures 0.51 cm in diameter which is within normal limits. Liver appears unremarkable without obvious mass or intrahepatic ductal dilatation. Limited views of the pancreas are grossly unremarkable. Right kidney measures 10.8 x 4.2 x 5.9 cm in longitudinal, AP and transverse dimensions. Renal cortex appears grossly unremarkable measuring approximately 1.2 cm in thickness. No obvious renal mass or evidence of obstructive uropathy. No obvious calculus. Visualized abdominal aorta appears grossly unremarkable. IMPRESSION IMPRESSION: Ultrasound study of the right upper quadrant of the abdomen is grossly unremarkable. [facility] Radiology Study observation (narrative) [facility] US Abdomen RUQOrdered By: David Dobson on 02-02-2023 [facility] Work Phone: XR Chest PA and Lateralon IMPRESSION: There is subtle increased density posterior medially within the left lower chest which in the right clinical setting can be associated with a pneumonia. Appropriate clinical management and a follow-up chest radiograph to confirm complete resolution recommended. RADIOLOGY EXAM: XR CHEST PA AN D LATERAL HISTORY: Upper abd pain with reported fever and cough. COMPARISON: 04/28/2020. TECHNIQUE: PA and lateral views of the chest performed. FINDINGS: The trachea is normal. The heart size is normal. The cardiomediastinal silhouette and hilar shadows are normal. The lung volumes are normal. There is subtle increased density posterior medially within the left lower chest which in the right clinical setting could be associated with a pneumonia. There is no pleural effusion or pulmonary vascular congestion. There is no pneumothorax or osseous abnormality. There is artifact related to the patient's hair. RADIOLOGY Jovany Campbell MD - 02/02/2023 EXAM: XR CHEST PA AND LATERAL HISTORY: Upper abd pain with reported fever and cough. COMPARISON: 04/28/2020. TECHNIQUE: PA and lateral views of the chest performed. FINDINGS: The trachea is normal. The heart size is normal. The cardiomediastinal silhouette and hilar shadows are normal. The lung volumes are normal. There is subtle increased density posterior medially within the left lower chest which in the right clinical setting could be associated with a pneumonia. There is no pleural effusion or pulmonary vascular congestion. There is no pneumothorax or osseous abnormality. There is artifact related to the patient's hair. IMPRESSION IMPRESSION: There is subtle increased density posterior medially within the left lower chest which in the right clinical setting can be associated with a pneumonia. Appropriate clinical management and a follow-up chest radiograph to confirm complete resolution recommended. [facility] Radiology Study observation (narrative) [facility] [employer] XR Chest PA and LateralOrder ed By: Jovany Campbell on 02-02-2023 [facility] [employer] Work Phone: SARS-COV-2 RAPIDon 1 Compressed Gases Tester Cyto stain Nom (Cvx/Vag) [ID] [place] [facility]-IN [facility] NARRATIVE -1 This test was performed using isothermal GISELA and has been approved as Emergency Use Authorization (EUA) for the qualitative detection [id number] nucleic acid. [facility] SARS-CoV-2 (COVID-19) RNA GISELA+probe Ql (Unsp spec) Not detected NOT DETECTED [facility] Comment on above: Negative results do not preclude SARS-CoV-2 infection and should not be used as the sole basis for treatment or other patient management decisions. Optimum specimen types and timing for peak viral levels during infections caused by SARS-CoV-2 has not been determined. The possibility of a false negative result should especially be considered if the patient's recent exposures or clinical presentation suggest that SARS-CoV-2 infection is probable, and diagnostic tests for other causes of illness (e.g., other respiratory illness) are negative. Collection of a new specimen and re-testing may be necessary if the patient is critically ill or clinically deteriorating. [facility] NM NASAL ENDOSCOPY,DXOrdered By: Ron Garay on 11-20-2020 Ron Garay MD 11/20/2020 3:36 PM After the nose was sprayed with Afrin nasal spray was evaluated with the 0 telescope. The nasal septum is deviated to the left with obliteration of the left nasal passage by 60-80% and 4+ hypertrophy of the inferior turbinates bilaterally. [facility] CT SINUSES WITHOUT CONTRASTO rdered By: Ron Garay on 11-15-2020 IMPRESSION: 1. There is a leftward nasal septal deviation with contact of the left inferior turbinate. 2. There is ethmoid, bilateral maxillary, and left sphenoid sinus disease. The left ostiomeatal complex appears obstructed. [facility] EXAMINATION: CT SINUSES WITHOUT CONTRAST HISTORY: Deviated nasal septum. Trouble breathing for 8 months. COMPARISON: None. TECHNIQUE: Axial, coronal, and sagittal images through the paranasal sinuses were obtained. Dose reduction techniques were achieved by using automated exposure control and/or adjustment of mA and/or kV according to patient size and/or use of iterative reconstruction technique. FINDINGS: There are no definite abnormalities involving the visualized portions of the brain parenchyma. The bilateral orbital globes are symmetric. There is no intraorbital fatty infiltration. The frontal sinuses are well aerated. There is minimal mucosal thickening involving the ethmoid air cells. There is a small amount of fluid in the left maxillary sinus. There is mucosal thickening involving the left maxillary sinus. Small mucous retention cysts or polyps are noted in the right maxillary sinus. The right ostiomeatal complex is patent. The left ostiomeatal complex appears obstructed. There is a small amount of fluid in the left sphenoid sinus. There is mild leftward nasal septal deviation. The deviated septum does contact the left inferior turbinate. Bilateral mastoid air cells appear well-aerated. Right middle turbinate conchal bullosa is noted. [employer] User, Interfaces - 11/15/2020 3:18 PM EDT EXAMINATION: CT SINUSES WITHOUT CONTRAST HISTORY: Deviated nasal septum. Trouble breathing for 8 months. COMPARISON: None. TECHNIQUE: Axial, coronal, and sagittal images through the paranasal sinuses were obtained. Dose reduction techniques were achieved by using automated exposure control and/or adjustment of mA and/or kV according to patient size and/or use of iterative reconstruction technique. FINDINGS: There are no definite abnormalities involving the visualized portions of the brain parenchyma. The bilateral orbital globes are symmetric. There is no intraorbital fatty infiltration. The frontal sinuses are well aerated. There is minimal mucosal thickening involving the ethmoid air cells. There is a small amount of fluid in the left maxillary sinus. There is mucosal thickening involving the left maxillary sinus. Small mucous retention cysts or polyps are noted in the right maxillary sinus. The right ostiomeatal complex is patent. The left ostiomeatal complex appears obstructed. There is a small amount of fluid in the left sphenoid sinus. There is mild leftward nasal septal deviation. The deviated septum does contact the left inferior turbinate. Bilateral mastoid air cells appear well-aerated. Right middle turbinate conchal bullosa is noted. IMPRESSION IMPRESSION: 1. There is a leftward nasal septal deviation with contact of the left inferior turbinate. 2. There is ethmoid, bilateral maxillary, and left sphenoid sinus disease. The left ostiomeatal complex appears obstructed. [employer] [facility] US DUPLEX EXTREMITY DVT RIGH TOrdered By: Cecile Oleary on 11-15-2020 IMPRESSION: No evidence of deep venous thrombosis or superficial venous thrombophlebitis in the visualized right upper extremity veins. [facility] EXAM: Right upper extremity venous duplex, 11/15/2020 12:38 PM EDT HISTORY: 30-year-old with right forearm and wrist swelling. COMPARISON: None. FINDINGS: Color and spectral doppler images were obtained. The veins were examined for compressibility where applicable, augmentation, waveforms and echogenic intraluminal material. RIGHT: Internal Jugular: No thrombus Subclavian: Normal waveform. No echogenic thrombus seen. Axillary: No thrombus. Brachial: No thrombus Superficial veins: The cephalic and basilic veins are normal. Radial: Normal Ulnar: Normal [facility] User, Interfaces - 11/15/2020 1:05 PM EDT EXAM: Right upper extremity venous duplex, 11/15/2020 12:38 PM EDT HISTORY: 30-year-old with right forearm and wrist swelling. COMPARISON: None. FINDINGS: Color and spectral doppler images were obtained. The veins were examined for compressibility where applicable, augmentation, waveforms and echogenic intraluminal material. RIGHT: Internal Jugular: No thrombus Subclavian: Normal waveform. No echogenic thrombus seen. Axillary: No thrombus. Brachial: No thrombus Superficial veins: The cephalic and basilic veins are normal. Radial: Normal Ulnar: Normal IMPRESSION IMPRESSION: No evidence of deep venous thrombosis or superficial venous thrombophlebitis in the visualized right upper extremity veins. [facility] NM NASAL ENDOSCOPY,DXOrdered By: Ron Garay on 10-23-2020 Ron Garay MD 10/23/2020 2:38 PM The nose was protruding from sinuses. Was evaluated with the 0 telescope. The septum was deviated to the left with obliteration of the left nasal passage by about 80% percent and left nasal septal spur and 4+ hypertrophy of the inferior turbinates bilaterally. [facility] SARS-COV-2,NAAon 05-01-2020 SARS-CoV-2 (COVID-19) RNA GISELA+probe Ql (Unsp spec) Not detected Normal [facility] Comment on above: Result Comment: Refe rence range: Not Detected (NOTE) This nucleic acid amplification test was developed and its performance characteristics determined by [employer]. Nucleic acid amplification tests include PCR and TMA. This test has not been FDA cleared or approved. This test has been authorized by FDA under an Emergency Use Authorization (EUA). This test is only authorized for the duration of time the declaration that circumstances exist justifying the authorization of the emergency use of in vitro diagnostic tests for detection of SARS-CoV-2 virus and/or diagnosis of COVID-19 infection under section 564(b)(1) of the Act, 21 U.S.C. 360bbb-3(b) (1), unless the authorization is terminated or revoked sooner. When diagnostic testing is negative, the possibility of a false negative result should be considered in the context of a patient's recent exposures and the presence of clinical signs and symptoms consistent with COVID-19. An individual without symptoms of COVID- 19 and who is not shedding SARS-CoV-2 virus would expect to have a negative (not detected) result in this assay. Otheron 04-28-2020 IMPRESSION: No acute [facility]opulmonary disease [email or web address]: XR CHEST PA AN D LATERAL HISTORY: cough, SOB COMPARISON: None. TECHNIQUE: 2 views FINDINGS: No acute cardiopulmonary disease. [employer] User, [employer]faces - 04/28/2020 5:37 PM EST EXAM: XR CHEST PA AND LATERAL HISTORY: cough, SOB COMPARISON: None. TECHNIQUE: 2 views FINDINGS: No acute cardiopulmonary disease. IMPRESSION IMPRESSION: No acute cardiopulmonary disease [email or web address] Vital Signs Date Time Vital Sign Value Performing Clinician Facility 03-23-2025 11:34-0400 Diastolic blood pressure 92 mm[Hg] Cordell Steve FIRE BATTALION CHIEF-C Work Phone: [facility] 03-23-2025 11:34-0400 Heart rate 86 /min Cordell Steve FIRE BATTALION CHIEF-C Work Phone: [facility] 03-23-2025 11:34-0400 Respiratory rate 18 /min Cordell Steve FIRE BATTALION CHIEF-C Work Phone: [facility] 03-23-2025 11:34-0400 SaO2% (BldA) [Mass fraction] 99 % Cordell Steve FIRE BATTALION CHIEF-C Work Phone: [facility] 03-23-2025 11:34-0400 Systolic blood pressure 138 mm[Hg] Cordell Steve FIRE BATTALION CHIEF-C Work Phone: [facility] 03-07-2025 14:14-0400 Diastolic blood pressure 93 mm[Hg] Cordell Steve FIRE BATTALION CHIEF-C Work Phone: [facility] 03-07-2025 14:14-0400 Heart rate 75 /min Cordell Steve FIRE BATTALION CHIEF-C Work Phone: [facility] 03-07-2025 14:14-0400 Respiratory rate 18 /min Cordell Steve FIRE BATTALION CHIEF-C Work Phone: [facility] 03-07-2025 14:14-0400 SaO2% (BldA) [Mass fraction] 99 % Cordell Steve FIRE BATTALION CHIEF-C Work Phone: [facility] 03-07-2025 14:14-0400 Systolic blood pressure 149 mm[Hg] Cordell Steve FIRE BATTALION CHIEF-C Work Phone: [facility] 01-26-2025 09:54-0400 Body height 162.56 cm Cordell Steve FIRE BATTALION CHIEF-C Work Phone: [facility] 01-26-2025 09:54-0400 Body mass index (BMI) [Ratio] 32.4 kg/m2 Cordell Steve FIRE BATTALION CHIEF-C Work Phone: [facility] 01-26-2025 09:54-0400 Body weight 85.72 kg Cordell Steve FIRE BATTALION CHIEF-C Work Phone: [facility] 01-26-2025 09:54-0400 Diastolic blood pressure 103 mm[Hg] Cordell Steve FIRE BATTALION CHIEF-C Work Phone: [facility] 01-26-2025 09:54-0400 Heart rate 74 /min Cordell Steve FIRE BATTALION CHIEF-C Work Phone: [facility] 01-26-2025 09:54-0400 Respiratory rate 18 /min Cordell Steve FIRE BATTALION CHIEF-C Work Phone: [facility] 01-26-2025 09:54-0400 SaO2% (BldA) [Mass fraction] 98 % Cordell Steve FIRE BATTALION CHIEF-C Work Phone: [facility] 01-26-2025 09:54-0400 Systolic blood pressure 162 mm[Hg] Cordell Steve FIRE BATTALION CHIEF-C Work Phone: [facility] 10-03-2024 15:27-0400 Body height 160 cm Cordell Steve EXOTIC DANCER-WET WHEELER Work Phone: [facility] 10-03-2024 15:27-0400 Body mass index (BMI) [Ratio] 35.14 kg/m2 Cordell Steve [employer]OTIC DANCER-W[employer] WHEELER Work Phone: [facility] 10-03-2024 15:27-0400 Body temperature 98.4 [degF] Cordell Steve [employer]OTIC DANCER-W[employer] WHEELER Work Phone: [facility] 10-03-2024 15:27-0400 Body weight 89.99 kg Cordell Steve [employer]OTIC DANCER[employer] WHE[employer]ER Work Phone: [facility] 10-03-2024 15:27-0400 Diastolic blood pressure 96 mm[Hg] Cordell Steve [employer]OTIC DANCER[employer] WHE[employer]ER Work Phone: [facility] 10-03-2024 15:27-0400 Heart rate 99 /min Cordell Steve [employer]OTIC DANCER[employer] WHE[employer]ER Work Phone: [facility] 10-03-2024 15:27-0400 Respiratory rate 20 /min Cordell Steve [employer]OTIC DANCER[employer] WHE[employer]ER Work Phone: [facility] 10-03-2024 15:27-0400 SaO2% (BldA) [Mass fraction] 99 % Cordell Steve [employer]OTIC DANCER[employer] WHE[employer]ER Work Phone: [facility] 10-03-2024 15:27-0400 Systolic blood pressure 146 mm[Hg] Cordell Steve [employer]OTIC DANCER[employer] WHE[employer]ER Work Phone: [facility] 09-19-2024 10:24-0400 Body height 160 cm Rabia Peck MD Work Phone: [facility] 09-19-2024 10:24-0400 Body mass index (BMI) [Ratio] 35.25 kg/m2 Rabia Peck MD Work Phone: [facility] 09-19-2024 10:24-0400 Body weight 90.27 kg Rabia Peck MD Work Phone: [facility] 09-05-2024 15:56-0400 Body height 160 cm Cordell Steve EXOTIC DANCER-W[employer] WHEELER Work Phone: [facility] 09-05-2024 15:56-0400 Body mass index (BMI) [Ratio] 35.29 kg/m2 Cordell Steve [employer]OTIC DANCER-W[employer] WHE[employer]ER Work Phone: [facility] 09-05-2024 15:56-0400 Body temperature 99 [degF] Cordell Steve EXOTIC DANCER-W[employer] WHE[employer]ER Work Phone: [facility] 09-05-2024 15:56-0400 Body weight 90.36 kg Cordell Steve [employer]OTIC DANCER[employer] WHE[employer]ER Work Phone: [facility] 09-05-2024 15:56-0400 Diastolic blood pressure 104 mm[Hg] Cordell Steve [employer]OTIC DANCER[employer] WHE[employer]ER Work Phone: [facility] 09-05-2024 15:56-0400 Heart rate 87 /min Cordell Steve [employer]OTIC D[employer]ER[employer] WHE[employer]ER Work Phone: [facility] 09-05-2024 15:56-0400 Respiratory rate 20 /min Cordell Steve [employer]OTIC D[employer]ER[employer] WHE[employer]ER Work Phone: [facility] 09-05-2024 15:56-0400 SaO2% (BldA) [Mass fraction] 100 % Cordell Steve [employer] D[employer]ER[employer] WHE[employer]ER Work Phone: [facility] 09-05-2024 15:56-0400 Systolic blood pressure 166 mm[Hg] Cordell Steve [employer]OTIC D[employer]ER[employer] WHE[employer]ER Work Phone: [facility] 02-02-2023 10:41-0400 Diastolic blood pressure 87 mm[Hg] Bar Bland MD Work Phone: [facility] 02-02-2023 10:41-0400 Heart rate 77 /min Bar Bland MD Work Phone: [facility] 02-02-2023 10:41-0400 Respiratory rate 18 /min Bar Bland MD Work Phone: [facility] 02-02-2023 10:41-0400 Systolic blood pressure 167 mm[Hg] Bar Bland MD Work Phone: [facility] 02-02-2023 09:21-0400 SaO2% (BldA) [Mass fraction] 100 % Bar Bland MD Work Phone: [facility] 02-02-2023 06:34-0400 Body height 160 cm Bar Bland MD Work Phone: [facility] 02-02-2023 06:31-0400 Body temperature 98.4 [degF] Bar Bland MD Work Phone: [facility] 02-27-2022 10:17-0400 Body height 160 cm Cordell Steve EXOTIC DANCER-W[employer] WHEELER Work Phone: [facility] 02-27-2022 10:17-0400 Body mass index (BMI) [Ratio] 34.93 kg/m2 Cordell Steve [employer]OTIC DANCER[employer] WHE[employer]ER Work Phone: [facility] 02-27-2022 10:17-0400 Body temperature 97.5 [degF] Cordell Steve EXOTIC DANCER-W[employer] WHEELER Work Phone: [facility] 02-27-2022 10:17-0400 Body weight 89.45 kg Cordell Steve EXOTIC DANCER-[employer] WHE[employer]ER Work Phone: [facility] 02-27-2022 10:17-0400 Diastolic blood pressure 80 mm[Hg] Cordell Steve EXOTIC DANCER-W[employer] WHEELER Work Phone: [facility] 02-27-2022 10:17-0400 Heart rate 119 /min Cordell Steve EXOTIC DANCER-[employer] WHE[employer]ER Work Phone: [facility] 02-27-2022 10:17-0400 Respiratory rate 16 /min Cordell Steve [employer]OT[employer] D[employer]ER[employer] WHE[employer]ER Work Phone: [facility] 02-27-2022 10:17-0400 SaO2% (BldA) [Mass fraction] 98 % Cordell Steve [employer] D[employer]ER[employer]ER Work Phone: [facility] 02-27-2022 10:17-0400 Systolic blood pressure 122 mm[Hg] Cordell Steve [employer] D[employer]ER[employer] WHE[employer]ER Work Phone: [facility] 01-01-2022 09:29-0400 Body height 160 cm Cordell Steve [employer] D[employer]ER Work Phone: [facility] 01-01-2022 09:29-0400 Body mass index (BMI) [Ratio] 35.25 kg/m2 Cordell Steve [employer] D[employer]ER[employer]ER Work Phone: [facility] 01-01-2022 09:29-0400 Body temperature 97.2 [degF] Cordell Steve [employer]OTIC DANCER-[employer] WHE[employer]ER Work Phone: [facility] 01-01-2022 09:29-0400 Body weight 90.27 kg Cordell Steve EXOTIC DANCER-[employer] WHE[employer]ER Work Phone: [facility] 01-01-2022 09:29-0400 Diastolic blood pressure 110 mm[Hg] Cordell Steve [employer]OT[employer] DANCER[employer] WHE[employer]ER Work Phone: [facility] 01-01-2022 09:29-0400 Heart rate 83 /min Cordell Steve [employer]OTIC DANCER[employer] WHE[employer]ER Work Phone: [facility] 01-01-2022 09:29-0400 Respiratory rate 18 /min Cordell Steve [employer]OTIC DANCER-[employer] WHE[employer]ER Work Phone: [facility] 01-01-2022 09:29-0400 SaO2% (BldA) [Mass fraction] 99 % Cordell Steve EXOTIC DANCER[employer] WHE[employer]ER Work Phone: [facility] 01-01-2022 09:29-0400 Systolic blood pressure 168 mm[Hg] Cordell Steve EXOTIC DANCER[employer] WHEELER Work Phone: [facility] 12-15-2021 23:45-0400 Diastolic blood pressure 102 mm[Hg] Garo Adams MD Work Phone: [facility] 12-15-2021 23:45-0400 Heart rate 97 /min Garo Adams MD Work Phone: [facility] 12-15-2021 23:45-0400 Respiratory rate 18 /min Garo Adams MD Work Phone: [facility] 12-15-2021 23:45-0400 SaO2% (BldA) [Mass fraction] 98 % Garo Adams MD Work Phone: [facility] 12-15-2021 23:45-0400 Systolic blood pressure 170 mm[Hg] Garo Adams MD Work Phone: [facility] 12-15-2021 22:24-0400 Body height 160 cm Garo Adams MD Work Phone: [facility] 12-15-2021 22:22-0400 Body temperature 98.1 [degF] Garo Adams MD Work Phone: [facility] 10-01-2021 17:17-0400 Body height 160 cm Kaitlyn Cosme EXOTIC DANCER-WET WHEELER Work Phone: [facility] 10-01-2021 17:17-0400 Body mass index (BMI) [Ratio] 35.43 kg/m2 Kaitlyn Cosme EXOTIC DANCER[employer] WHE[employer]ER Work Phone: [facility] 10-01-2021 17:17-0400 Body temperature 99.1 [degF] Kaitlyn Cosme [employer]IC D[employer]ER[employer]ER Work Phone: [facility] 10-01-2021 17:17-0400 Body weight 90.72 kg Kaitlyn Cosme EXOTIC DANCER-[employer] WHE[employer]ER Work Phone: [facility] 10-01-2021 17:17-0400 Diastolic blood pressure 120 mm[Hg] Kaitlyn Cosme EXOTIC DANCER[employer] WHE[employer]ER Work Phone: [facility] 10-01-2021 17:17-0400 Heart rate 95 /min Kaitlyn Cosme APRN-WET WHEELER Work Phone: [facility] 10-01-2021 17:17-0400 Respiratory rate 22 /min Kaitlyn Cosme EXOTIC DANCER[employer]ER Work Phone: [facility] 10-01-2021 17:17-0400 SaO2% (BldA) [Mass fraction] 99 % Kaitlyn Cosme EXOTIC DANCER[employer] WHE[employer]ER Work Phone: [facility] 10-01-2021 17:17-0400 Systolic blood pressure 173 mm[Hg] Kaitlyn Cosme [employer]OTIC DANCER[employer] WHE[employer]ER Work Phone: [facility] 06-09-2021 16:37-0500 Diastolic blood pressure 108 mm[Hg] Janie Banegas PA Work Phone: [facility] 06-09-2021 16:37-0500 Systolic blood pressure 171 mm[Hg] Janie Banegas PA Work Phone: [facility] 06-09-2021 16:34-0500 Body height 160 cm Janie Banegas PA Work Phone: [facility] 06-09-2021 16:34-0500 Body mass index (BMI) [Ratio] 34.35 kg/m2 Janie Banegas PA Work Phone: [facility] 06-09-2021 16:34-0500 Body temperature 98.8 [degF] Janie Banegas PA Work Phone: [facility] 06-09-2021 16:34-0500 Body weight 87.95 kg Janie Banegas PA Work Phone: [facility] 06-09-2021 16:34-0500 Heart rate 94 /min Janie Banegas PA Work Phone: [facility] 06-09-2021 16:34-0500 Respiratory rate 18 /min Janie Banegas PA Work Phone: [facility] 06-09-2021 16:34-0500 SaO2% (BldA) [Mass fraction] 97 % Janie Banegas PA Work Phone: [facility] 11-20-2020 [id number] Body height 160 cm Ron Garay MD Work Phone: [facility] 11-20-2020 14:03-0400 Body mass index (BMI) [Ratio] 34.01 kg/m2 Ron Garay MD Work Phone: [facility] 11-20-2020 14:03-0400 Body temperature 97 [degF] Ron Garay MD Work Phone: [facility] 11-20-2020 14:03-0400 Body weight 87.09 kg Ron Garay MD Work Phone: [facility] 10-23-2020 14:13-0400 Body height 160 cm Ron Garay MD Work Phone: [facility] 10-23-2020 14:13-0400 Body mass index (BMI) [Ratio] 34.01 kg/m2 Ron Garay MD Work Phone: [facility] 10-23-2020 14:13-0400 Body weight 87.09 kg Ron Garay MD Work Phone: [facility] 10-23-2020 08:09-0400 Body mass index (BMI) [Ratio] 34.19 kg/m2 Cecile Oleary APRN-WET WHEELER Work Phone: [facility] 10-23-2020 08:09-0400 Body temperature 97.7 [degF] Cecile Oleary APRN-WET WHEELER Work Phone: [facility] 10-23-2020 08:09-0400 Body weight 87.54 kg Cecile POWERS Work Phone: [facility] 10-23-2020 08:09-0400 Diastolic blood pressure 102 mm[Hg] Cecile Oleary APRN-WET WHEELER Work Phone: [facility] 10-23-2020 08:09-0400 Heart rate 81 /min Ceciel POWRES Work Phone: [facility] 10-23-2020 08:09-0400 Systolic blood pressure 155 mm[Hg] Cecile Oleary EXOTIC DANCER-WET WHEELER Work Phone: [facility] 08-15-2020 12:21-0500 BMI (Body Mass Index) 33.66 kg/m2 [facility] 08-15-2020 12:21-0500 Body Temperature 100.29 [degF] [facility] 08-15-2020 12:21-0500 Body weight 86.18 kg [facility] 08-15-2020 12:21-0500 BP Diastolic 93 mm[Hg] [facility] 08-15-2020 12:21-0500 BP Systolic 143 mm[Hg] [facility] 08-15-2020 12:21-0500 Pulse (Heart Rate) 101 /min [facility] 08-15-2020 12:21-0500 Pulse Oximetry 97 % [facility] 08-15-2020 12:21-0500 Respiratory Rate 24 /min [facility] 06-18-2020 17:06-0500 BMI (Body Mass Index) 32.06 kg/m2 [facility] 06-18-2020 17:06-0500 Body Temperature 98.29 [degF] [facility] 06-18-2020 17:06-0500 Body weight 82.[address] [facility] 06-18-2020 17:06-0500 BP Diastolic 122 mm[Hg] [facility] 06-18-2020 17:06-0500 BP Systolic 185 mm[Hg] [facility] 06-18-2020 17:06-[address] [facility] 06-18-2020 17:06-0500 Pulse (Heart Rate) 106 /min [facility] 06-18-2020 17:06-0500 Pulse Oximetry 95 % [facility] 06-18-2020 17:06-0500 Respiratory Rate 16 /min [facility] 04-28-2020 17:05-0500 BP Diastolic 115 mm[Hg] [facility] 04-28-2020 17:05-0500 BP Systolic 165 mm[Hg] [facility] 04-28-2020 17:03-0500 BMI (Body Mass Index) 30.93 kg/m2 [facility] 04-28-2020 17:03-0500 Body Temperature 98.49 [degF] [facility] 04-28-2020 17:03-0500 Body weight 79.2 kg [facility] 04-28-2020 17:03-0500 Height 160 cm [facility] 04-28-2020 17:03-0500 Pulse (Heart Rate) 96 /min [facility] 04-28-2020 17:03-0500 Pulse Oximetry 96 % [facility] 04-28-2020 17:03-0500 Respiratory Rate 15 /min [facility] 03-14-2020 13:53-0400 BMI (Body Mass Index) 31.24 kg/m2 [facility] 03-14-2020 13:53-0400 Body weight 82.56 kg [facility] 03-14-2020 13:53-0400 BP Diastolic 97 mm[Hg] [facility] 03-14-2020 13:53-0400 BP Systolic 160 mm[Hg] [facility] 03-14-2020 13:53-0400 Height 162.6 cm [facility] 03-14-2020 13:53-0400 Pulse (Heart Rate) 111 /min [facility] 03-14-2020 13:53-0400 Pulse Oximetry 98 % [facility] 02-25-2020 13:47-0400 Pulse (Heart Rate) 88 /min [facility] 02-25-2020 13:20-0400 BMI (Body Mass Index) 31.62 kg/m2 [facility] 02-25-2020 13:20-0400 Body Temperature 99.1 [degF] [facility] 02-25-2020 13:20-0400 Body weight 80.[address] [facility] 02-25-2020 13:20-0400 BP Diastolic 109 mm[Hg] [facility] Comment on above: Pt states she was seen by PCP this week for BP 02-25-2020 13:20-0400 BP Systolic 154 mm[Hg] [facility] Comment on above: Pt states she was seen by PCP this week for BP 02-25-2020 13:20-[address] [facility] 02-25-2020 13:20-0400 Pulse Oximetry 96 % [facility] 02-25-2020 13:20-0400 Respiratory Rate 18 /min [facility] 11-01-2017 07:58-0400 BMI (Body Mass Index) 33.01 kg/m2 [facility] 11-01-2017 07:58-0400 Body Temperature 98.6 [degF] [facility] 11-01-2017 07:58-0400 BP Diastolic 97 mm[Hg] [facility] 11-01-2017 07:58-0400 BP Systolic 141 mm[Hg] [facility] 11-01-2017 07:58-0400 Pulse (Heart Rate) 96 /min [facility] 11-01-2017 07:58-0400 Pulse Oximetry 99 % [facility] 11-01-2017 07:58-0400 Weight 87.23 kg [facility] 02-08-2017 20:29-0400 BMI (Body Mass Index) 26.57 kg/m2 [facility] Work Phone: 02-08-2017 20:29-0400 Body Temperature 99 [degF] [facility] Work Phone: 02-08-2017 20:29-0400 BP Diastolic 101 mm[Hg] [facility] Work Phone: 02-08-2017 20:29-0400 BP Systolic 154 mm[Hg] Celia Avila [facility] Work Phone: 02-08-2017 20:29-0400 Height 160 cm Celia Avila [facility] Work Phone: 02-08-2017 20:29-0400 Pulse (Heart Rate) 96 /min Celia Avila [facility] Work Phone: 02-08-2017 20:29-0400 Pulse Oximetry 99 % Celia [facility] Work Phone: 02-08-2017 20:29-0400 Respiratory Rate 16 /min Celia [facility] Work Phone: 02-08-2017 20:29-0400 Weight 68.04 kg Celia Avila [facility] Work Phone: Encounters Encounter Date Encounter Type Care Provider Facility Start: 03-23-2025 End: 03-23-[address] Jorge Day MD -[facility] Work Phone: Start: 03-23-2025 End: 03-23-2025 ambulatory Cordell Steve Facility:[facility] Start: 03-07-2025 End: 03-07-[address] Jorge Day MD -Laboratory Specimen Work Phone: Start: 03-07-2025 End: 03-07-2025 ambulatory Cordell Steve FIRE BATTALION CHIEF-C Work Phone: -Laboratory Specimen Start: 03-07-2025 End: 03-07-[address] Jorge Day MD -[facility] Work Phone: Start: 03-07-2025 End: 03-07-2025 ambulatory Cordell Steve FIRE BATTALION CHIEF-C Work Phone: -[facility] Start: 01-26-2025 End: 01-26-[address] Jorge Day MD -[facility] Work Phone: Start: 01-26-2025 End: 01-26-2025 ambulatory Cordell Steve FIRE BATTALION CHIEF-C Work Phone: -[facility] Start: 12-08-2024 ambulatory Cordell Steve Facility :[facility] Start: 10-17-2024 End: 10-17-2024 Patient encounter procedure Rabia Peck MD Work Phone: [facility] Comment on above: Neoplasm of soft tis jaky (Primary Dx) Start: 10-17-2024 ambulatory SELF SELF [facility] Start: 10-13-2024 End: 10-13-2024 ambulatory Cordell Steve FIRE BATTALION CHIEF-C Work Phone: [facility] Work Phone: Start: 10-13-2024 End: 10-13-[address] Neha Cruz MD -Laboratory, [place] Work Phone: Start: 10-13-2024 End: 10-13-2024 ambulatory Cordell Steve Facility:[facility] Start: 10-03-2024 End: 10-03-2024 Office outpatient visit 25 minutes Cordell Steve EXOTIC DANCER-WET WHEELER Work Phone: [facility] Comment on above: Benign hypertension (Primary Dx); Hidradenitis suppurativa; Edema of right upper extremity; Gastroesophageal reflux disease without esophagitis Start: 10-03-2024 [facility] Start: 09-22-2024 ambulatory CORDELL Bowdenta [facility] Start: 09-22-2024 End: 09-22-2024 Subsequent hospital visit by physician Cordell Steve EXOTIC DANCER-WET WHEELER Work Phone: [facility] Comment on above: Arrived Start: 09-19-2024 End: 09-19-2024 Office outpatient new 30 minutes Rabia Peck MD Work Phone: [facility] Comment on above: Neoplasm of soft tis jaky (Primary Dx) Start: 09-19-2024 ambulatory CORDELL STEVE [facility] Start: 09-09-2024 ambulatory CORDELL STEVE [facility] Start: 09-05-2024 End: 09-05-2024 Office outpatient visit 25 minutes Cordell Steve EXOTIC DANCER-WET WHEELER Work Phone: [facility] Comment on above: Hypertension, unspec ified type (Primary Dx); Moderate persistent asthma without complication; Prediabetes; Edema of right upper extremity; Sebaceous cyst Start: 09-05-2024 ambulatory CORDELL Lauren [facility] Start: 05-12-2023 ambulatory PHYSICIAN NO [facility] Start: 03-22-2023 ambulatory PHYSICIAN NO [facility] Start: 02-02-2023 End: 02-02-2023 Emergency department patient visit Bar Bland MD Work Phone: [facility] Start: 08-03-2022 ambulatory PHYSICIAN NO [facility] Start: 06-29-2022 End: 06-29-2022 Orders Only Erika GurrolaoccVinobo Work Phone: [facility] Comment on above: Encounter for long-t erm (current) use of medications (Primary Dx) Start: 02-27-2022 End: 02-27-2022 Office outpatient visit 25 minutes Cordell Power EXOTIC [email or web address] Work Phone: [facility] Comment on above: Hypertension, unspec ified type (Primary Dx); Postural dizziness; Edema of right upper extremity; Other depression; Encounter for smoking cessation counseling Start: 01-05-2022 End: 01-05-2022 Office outpatient visit 25 minutes Erika CantrellVinobo Work Phone: [facility] Comment on above: Hidradenitis suppura tiva (Primary Dx) Start: 01-01-2022 End: 01-01-2022 Office outpatient visit 40 minutes Cordell Power EXOTIC [email or web address] Work Phone: [facility] Comment on above: Uncontrolled hyperte nsion (Primary Dx); Prediabetes; Vitamin D deficiency; Moderate persistent asthma without complication; Other depression; Edema of right upper extremity; Encounter for smoking cessation counseling Start: 12-15-2021 End: 12-15-2021 Emergency department patient visit Garo Adams MD Work Phone: [facility] Start: 10-09-2021 Transcribe Orders Akilah tervino MAJOR ACCOUNT REPRESENTATIVE [facility] Comment on above: Hidradenitis suppura tiva (Primary Dx) Start: 10-07-2021 Refill Erika Eudora DO Work Phone: [facility] Start: 10-06-2021 Documentation procedure Noel Gould [facility] Start: 10-06-2021 End: 10-06-2021 Office outpatient visit 25 minutes Erika Eudora DO Work Phone: [facility] Comment on above: Hidradenitis suppura tiva (Primary Dx) Start: 10-01-2021 End: 10-01-2021 Office outpatient visit 15 minutes Kaitlyn Cosme APRN-WET WHEELER Work Phone: [facility] Comment on above: Asthma, unspecified asthma severity, unspecified whether complicated, unspecified whether persistent (Primary Dx) Start: 08-16-2021 Refill Erika Eudora DO Work Phone: [facility] Comment on above: Hidradenitis suppura tiva Start: 07-10-2021 Orders Only Erika Eudora DO Work Phone: [facility] Comment on above: Hidradenitis suppura tiva (Primary Dx) Start: 07-08-2021 End: 07-08-2021 Office outpatient visit 25 minutes Erika Eudora DO Work Phone: [facility] Comment on above: Hidradenitis suppura tiva (Primary Dx) Start: 06-09-2021 End: 06-09-2021 Office outpatient visit 15 minutes Janie RAMOS Work Phone: [facility] Comment on above: Cough (Primary Dx) Start: 12-05-2020 Refill Cecile rodriguez WET WHEELER Work Phone: [facility] Comment on above: Vitamin D insufficie ncy Start: 11-20-2020 End: 11-20-2020 Office outpatient visit 25 minutes Ron Garay MD Work Phone: [facility] Comment on above: Deviated nasal septu m (Primary Dx); Nasal obstruction; Chronic sinusitis, unspecified location Start: 11-15-2020 End: 11-15-2020 Subsequent hospital visit by physician Cecile Oleary EXOTIC DANCER-WET WHEELER Work Phone: [facility] Comment on above: Arrived Start: 11-05-2020 End: 11-05-2020 Patient encounter procedure Ron Garay MD Work Phone: [facility] Comment on above: Deviated nasal septu m (Primary Dx) Start: 10-23-2020 End: 10-23-2020 Office outpatient visit 25 minutes Ron Garay MD Work Phone: [facility] Comment on above: Deviated nasal septu m (Primary Dx); Nasal obstruction; Chronic sinusitis, unspecified location Start: 10-23-2020 End: 10-23-2020 Office outpatient visit 25 minutes Cecile Oleary EXOTIC DANCER-WET WHEELER Work Phone: [facility] Comment on above: Family history of di abetes mellitus (Primary Dx); Essential hypertension; Lymphedema of arm; Chronic congestion of paranasal sinus Start: 08-15-2020 End: 08-15-2020 Office outpatient visit 25 minutes Cecile Oleary Work Phone: [facility] Comment on above: Fever and chills (Pr imary Dx); Wheezing on auscultation; Acute bronchitis due to other specified organisms Start: 07-23-2020 End: 07-27-2020 Patient encounter procedure YVES [facility] Start: 06-18-2020 End: 06-18-2020 Office outpatient visit 25 minutes Kaitlyn Cosme Work Phone: [facility] Comment on above: Wheezy bronchitis (P rimary Dx); Rhinitis, unspecified type Start: 04-28-2020 End: 04-28-2020 Subsequent hospital visit by physician Theresa Villalba Work Phone: [facility] Comment on above: Arrived Start: 04-28-2020 End: 04-28-2020 Office outpatient visit 25 minutes Theresa Villalba Work Phone: [facility] Comment on above: Shortness of breath (Primary Dx); Cough; Wheezy bronchitis Start: 04-23-2020 End: 04-23-2020 Office outpatient new 30 minutes Erika Luis Work Phone: [facility] Comment on above: Hidradenitis suppura tiva (Primary Dx) Start: 03-14-2020 End: 03-14-2020 Patient encounter procedure SERENE MELENDEZ [facility] Start: 03-14-2020 End: 03-14-2020 Office outpatient visit 25 minutes Serene Melendez Work Phone: [facility] Comment on above: Hidradenitis suppura tiva (Primary Dx) Start: 02-27-2020 End: 03-02-2020 Patient encounter procedure [facility] Start: 02-25-2020 End: 02-25-2020 Office outpatient visit 25 minutes Kaitlyn Cosme Work Phone: [facility] Comment on above: Allergic cough (Prim robert Dx) Start: 02-22-2020 End: 02-26-2020 Patient encounter procedure [facility] Start: 11-01-2017 End: 11-01-2017 Patient encounter Yves Akhtarjefferson Work Phone: [facility] Start: 10-08-2017 Ambulatory Yves Chuyita Facility:[facility] Start: 10-08-2017 End: 10-08-2017 Ambulatory Yves Boogie Work Phone: [facility] Start: 02-08-2017 End: 02-09-2017 Emergency department patient visit CELIA AVILA [facility] Start: 02-08-2017 End: 02-08-2017 Emergency department patient visit Celia Avila Work Phone: [facility] Start: 01-08-2017 End: 01-08-2017 Emergency department patient visit Ambrosio Mas Facility:[facility] Procedures Date Procedure Procedure Detail Performing Clinician Start: 10-17-2024 Exc b9 lesion mrgn x cp sk tg t/a/l >4.0 cm Rabia Peck MD Work Phone: Start: 10-13-2024 Hepatitis A virus an tibody, IgM type Cordell Steve FIRE BATTALION CHIEF-C Work Phone: Comment on above: A negative anti-HAV IgM result suggests no recent orcurrent HAV infection. Start: 10-13-2024 Hepatitis A virus an tibody, total measurement Cordell Steve FIRE BATTALION CHIEF-C Work Phone: Comment on above: Comment: The HAV tot al antibody assay detects both IgG andIgM but does not differentiate between them. A negativeresult suggests susceptibility to infection. A positiveresult could be due to vaccination, previously resolvedinfection or active infection. Testing for HAV IgM shouldbe performed if active HAV infection is suspected. [facility] profiles that will automatically reflex positive HAVtotal antibody results to IgM (e.g., panel #[id number] HAVAntibody w/ Rfx).Performed at: [place] [id number] Director: Vince Holguin PhD, Phone: [phone] Start: 10-13-2024 Hepatitis B core ant ibody measurement, IgM type Cordell Steve FIRE BATTALION CHIEF-C Work Phone: Start: 10-13-2024 Hepatitis C antibody measurement Cordell Steve FIRE BATTALION CHIEF-C Work Phone: Start: 10-13-2024 In-vitro immunologic test Cordell Steve FIRE BATTALION CHIEF-C Work Phone: Comment on above: QuantiFERON-TB Gold Plus is a qualitative indirect test forM tuberculosis infection (including disease) and isintended for use in conjunction with risk assessment,radiography, and other medical and diagnostic evaluations.The QuantiFERON-TB Gold Plus result is determined bysubtracting the Nil value from either TB antigen (Ag)value. The Mitogen tube serves as a control for the test. No response to M tub erculosis antigens detected.Infection with M tuberculosis is unlikely, but high riskindividuals should be considered for additional testing(ATS/IDSA/CDC Clinical Practice Guidelines, 2017). Thereference range is an Antigen minus Nil result of <0.35IU/mL.The specimen received for QuantiFERON testing was incubatedby the ordering institution. Specific procedures outlinedin our Directory of Services and in the package insert forthe QuantiFERON Gold (In Tube) test must be followed toenable for proper stimulation of cells for the productionof interferon gamma. Chemiluminescence immunoassaymethodology Start: 02-02-2023 Radiologic exam chest 2 views Bar Bland MD Work Phone: Start: 02-02-2023 Us abdominal real ti me w/image limited Bar Bland MD Work Phone: Start: 02-02-2023 End: 02-02-2023 Urinalysis microscopic only Bar doran MD Work Phone: Start: 02-02-2023 Urinalysis, reagent strip without microscopy Bar Bland MD Work Phone: Start: 02-02-2023 Complete blood count with white cell differential, automated Bar Bland MD Work Phone: Start: 02-02-2023 End: 02-02-2023 Comprehensive metabolic panel Bar Bland MD Work Phone: Start: 06-09-2021 SARS-COV-2 RAPID Janie RAMOS Work Phone: Start: 11-20-2020 Nasal endoscopy diag nostic uni/bi spx Ron Garay MD Work Phone: Start: 11-15-2020 Dup-scan xtr veins unilateral/limited study Cecile Oleary EXOTIC DANCER-WET WHEELER Work Phone: Start: 11-15-2020 Ct maxillofacial w/o contrast material Ron Garay MD Work Phone: Start: 10-23-2020 Nasal endoscopy diag nostic uni/bi spx Ron Garay MD Work Phone: Start: 04-28-2020 Diagnostic radiograp hy of chest, combined PA and lateral Theresa Villalba Work Phone: Start: 02-22-2020 Adult depression scr eening assessment Zeinab Mendoza Plan of Treatment Date Care Activity Detail Author Start: 03-23-2025 [facility] Start: 02-12-2025 Influenza vaccination INFLUENZA VACCINE (Season Ended) [facility] Start: 10-03-2024 End: 10-03-2024 Patient encounter procedure 10/03/2024 3:30 PM EDT Office Visit [address] [phone] Cordell Steve EXOTIC DANCER-WET WHEELER [address] [place] [phone] [facility] Start: 09-22-2024 End: 09-22-2024 Patient encounter procedure 09/22/2024 1:00 PM EDT Appointment [facility] [address] [place], [place] [phone] Cordell Steve EXOTIC DANCER-WET WHEELER [address] [place] [phone] [facility] Start: 09-11-2024 End: 09-11-2025 US Upper extremity - right US NON VASCULAR EXTREMITY UPPER RIGHT WITHOUT CONTRAST Imaging Routine Edema of right upper extremity Expected: 09/11/2024, Expires: 09/11/2025 [facility] Comment on above: Expected: 09/11/2024, Expires: Start: 02-13-2024 COVID-19 VACCINE ( season) COVID-19 VACCINE ( season) [facility] Start: 02-13-2024 Influenza vaccination INFLUENZA VACCINE (#1) [facility] Start: 03-09-2023 End: 03-09-2023 Patient encounter procedure 03/09/2023 3:30 PM EDT Office Visit [address] [phone] Cordell Steve EXOTIC DANCER-WET WHEELER [address] [place] [phone] [facility] Start: 02-12-2023 Influenza vaccination INFLUENZA VACCINE (#1) [facility] Start: 08-27-2022 End: 08-27-2022 Patient encounter procedure 08/27/2022 Office Visit Family Medicine Cordell Steve, EXOTIC DANCER-WET WHEELER [address] [place] [phone] [facility] Start: 06-29-2022 End: 06-29-2022 Telemedicine consultation with patient 06/29/2022 Telemedicine Dermatology Erika Smith Jr., DO [address] [place] [address] [facility] Start: 02-12-2022 [facility] Start: 01-29-2022 End: 01-29-2022 Patient encounter procedure 01/29/2022 Office Visit Family Medicine Cordell Steve, EXOTIC DANCER-WET WHEELER [address] [place] [phone] [facility] Start: 01-21-2022 End: 01-21-2022 Patient encounter procedure 01/21/2022 Office Visit Pulmonary Disease Lino Cosme MD [address] [place] [address] [phone] [facility] [place] Start: 01-05-2022 End: 01-05-2022 Telemedicine consultation with patient 01/05/2022 Telemedicine Dermatology Erika Smith Jr., DO [address] [place] [address] [facility] Start: 01-01-2022 End: 01-01-2023 Complete blood count with white cell differential, automated CBC, EDIF, PLATELET Lab Routine Prediabetes Expected: 01/01/2022, Expires: 01/01/2023 [facility] Comment on above: Expected: 01/01/2022, Expires: 3 Start: 01-01-2022 End: 01-01-2023 Comprehensive metabolic 2000 panel - Serum or Plasma COMPREHENSIVE METABOLIC PANEL Lab Routine Prediabetes Expected: 01/01/2022, Expires: 01/01/2023 [facility] Comment on above: Expected: 01/01/2022, Expires: 3 Start: 01-01-2022 End: 01-01-2023 Hemoglobin A1c/Hemoglobin.total in Blood HEMOGLOBIN A1C Lab Routine Prediabetes Expected: 01/01/2022, Expires: 01/01/2023 [facility] Comment on above: Expected: 01/01/2022, Expires: 3 Start: 01-01-2022 End: 01-01-2023 LIPID PANEL W CALCULATED LDL LIPID PANEL W CALCULATED LDL Lab Routine Prediabetes Expected: 01/01/2022, Expires: 01/01/2023 [facility] Comment on above: Expected: 01/01/2022, Expires: 3 Start: 01-01-2022 End: 01-01-2023 TSH W/FT4 REFLEX TSH W/FT4 REFLEX Lab Routine Prediabetes Uncontrolled hypertension Expected: 01/01/2022, Expires: 01/01/2023 [facility] Comment on above: Expected: 01/01/2022, Expires: 3 Start: 01-01-2022 End: 01-01-2023 VITAMIN D, (1,25 DIHYDROXY) VITAMIN D, (1,25 DIHYDROXY) Lab Routine Vitamin D deficiency Expected: 01/01/2022, Expires: 01/01/2023 [facility] Comment on above: Expected: 01/01/2022, Expires: 3 Start: 01-01-2022 End: 01-01-2022 Patient encounter procedure 01/01/2022 Office Visit Family Medicine Cordell Steve, EXOTIC DANCER-WET WHEELER [address] [place] [phone] [facility] Start: 10-06-2021 End: 10-06-2021 Telemedicine consultation with patient 10/06/2021 Telemedicine Dermatology Erika Smith Jr., [address] [place] [phone] [facility] Start: 02-21-2021 Adolescent depression screening assessment Depression Screening (PHQ9) [facility] Start: 02-21-2021 Depression screening using PHQ-9 (Patient Health Questionnaire 9) score [facility] Start: 02-12-2021 Influenza vaccination [facility] Start: 01-27-2021 End: 01-27-2021 Patient encounter procedure 01/27/2021 Office Visit Otolaryngology Ron Garay MD [address] [place] [address] [phone] [facility] Start: 01-22-2021 End: 01-22-2021 Patient encounter procedure 01/22/2021 Office Visit Otolaryngology Ron Garay MD [address] [place] [address] [phone] [facility] Start: 01-20-2021 End: 01-20-2021 Patient encounter procedure 01/20/2021 Office Visit Otolaryngology Ron Garay MD [address] [place] [address] [phone] [facility] Otolaryngology Start: 12-25-2020 End: 12-25-2020 ambulatory 12/25/2020 Pre-Operative Nurse Assessment Multispecialty [facility] Pre Admission Testing Start: 11-20-2020 End: 11-20-2020 Patient encounter procedure 11/20/2020 Office Visit Otolaryngology Ron Garay MD [address] [place] [address] [phone] [facility] Otolaryngology Start: 11-15-2020 End: 11-15-2020 Patient encounter procedure [facility] CT Scan Start: 11-05-2020 End: 11-05-2020 Patient encounter procedure 11/05/2020 Office Visit Otolaryngology Ron Garay MD [address] [place] [address] [facility] Otolaryngology Start: 10-23-2020 End: 10-23-2021 Complete blood count with white cell differential, automated CBC, EDIF, PLATELET Lab Routine Family history of diabetes mellitus Essential hypertension Lymphedema of arm Expected: 10/23/2020, Expires: 10/23/2021 [facility] Comment on above: Expected: 10/23/2020, Expires: 2 Start: 10-23-2020 End: 10-23-2021 Comprehensive metabolic 2000 panel - Serum or Plasma COMPREHENSIVE METABOLIC PANEL Lab Routine Family history of diabetes mellitus Essential hypertension Lymphedema of arm Expected: 10/23/2020, Expires: 10/23/2021 [facility] Comment on above: Expected: 10/23/2020, Expires: 2 Start: 10-23-2020 End: 10-23-2021 CT of [address]al sinuses CT SINUSES WITHOUT CONTRAST Imaging Routine Deviated nasal septum Nasal obstruction Chronic sinusitis, unspecified location Expected: 10/23/2020, Expires: 10/23/2021 [facility] Comment on above: Expected: 10/23/2020, Expires: 2 Start: 10-23-2020 End: 10-23-2021 Doppler ultrasonography of artery of upper limb US DOPPLER ARTERIAL ARMS BILATERAL Imaging Routine Lymphedema of arm Expected: 10/23/2020, Expires: 10/23/2021 [facility] Comment on above: Expected: 10/23/2020, Expires: 2 Start: 10-23-2020 End: 10-23-2021 Hemoglobin A1c/Hemoglobin.total in Blood HEMOGLOBIN A1C Lab Routine Family history of diabetes mellitus Essential hypertension Lymphedema of arm Expected: 10/23/2020, Expires: 10/23/2021 [facility] Comment on above: Expected: 10/23/2020, Expires: 2 Start: 10-23-2020 End: 10-23-2021 LIPID PANEL W CALCULATED LDL LIPID PANEL W CALCULATED LDL Lab Routine Family history of diabetes mellitus Essential hypertension Lymphedema of arm Expected: 10/23/2020, Expires: 10/23/2021 [facility] Comment on above: Expected: 10/23/2020, Expires: 2 Start: 10-23-2020 End: 10-23-2021 TSH W/FT4 REFLEX TSH W/FT4 REFLEX Lab Routine Family history of diabetes mellitus Essential hypertension Lymphedema of arm Expected: 10/23/2020 (Approximate), Expires: 10/23/2021 [facility] Comment on above: Expected: 10/23/2020 (Approximate), Expi res: 10/23/2021 Start: 07-25-2020 End: 07-25-2020 Office Visit 07/25/2020 Office Visit Dermatology Erika Smith Jr., [address] [place] [address] [phone] [facility] Start: 02-13-2020 Influenza vaccination INFLUENZA VACCINE (#1) [facility] Start: 02-13-2020 Influenza vaccination given Sequential Influenza Vaccine (#1) [facility] Start: 02-12-2018 Influenza vaccination SEQUENTIAL INFLUENZA VACCINE (Season Ended) [facility] Start: 01-14-2018 End: 01-14-2018 Ambulatory 01/14/2018 Office Visit Primary Care Yves Boogie MD [address] [place] [address] [phone] [facility] Start: 06-18-2015 Tetanus vaccination [facility] Start: 2010 Screening for malignant neoplasm of cervix CERVICAL CANCER SCREENING DISCUSSION [facility] Start: 2008 PNEUMOCOCCAL VACCINE SERIES (1 of 2 - PCV) PNEUMOCOCCAL VACCINE SERIES (1 of 2 - PCV) [facility] Start: 2008 Third diphtheria, tetanus and acellular pertussis (DTaP) vaccination TDAP (ADULT) [facility] Start: 2007 Hepatitis C antibody, confirmatory test Hepatitis C Screening [facility] Start: 2007 Tetanus vaccination TETANUS [facility] Start: 08-13-2005 Hepatitis B vaccination HEP B VACCINE (3 of 3 - 3-dose series) [facility] Start: 2005 COVID-19 VACCINE (1) COVID-19 VACCINE (1) [facility] Start: 2004 HIV screening [facility] Start: 2002 HIV screening HIV SCREENING DISCUSSION [facility] Start: 2001 COVID-19 VACCINE (1) COVID-19 VACCINE (1) [facility] Start: 1995 PNEUMOCOCCAL VACCINE SERIES (1 - PCV) PNEUMOCOCCAL VACCINE SERIES (1 - PCV) [facility] Start: 1995 Pneumococcal Vaccine: Ped or At-Risk (1 - PCV) Pneumococcal Vaccine: Ped or At-Risk (1 - PCV) [facility] Start: 1995 Pneumococcal Vaccine: Ped or At-Risk (1 of 2 - PPSV23) Pneumococcal Vaccine: Ped or At-Risk (1 of 2 - PPSV23) [facility] Start: 1994 COVID-19 VACCINE (1) COVID-19 VACCINE (1) [facility] Start: 1992 History and physical examination, annual for health maintenance Wellness Visit [facility] Start: 1989 COVID-19 VACCINE (#1) COVID-19 VACCINE (#1) [facility] Start: 1989 Hepatitis C antibody, confirmatory test HEPATITIS C VIRUS SCREENING [facility] Start: 1989 Hepatitis C screening HEPATITIS C VIRUS SCREENING [facility] Start: 1989 Screening for malignant neoplasm of cervix PAP SMEAR [facility] Start: 1989 Tetanus vaccination TETANUS EVERY 10 YR [facility] End: 06-29-2023 Complete blood count with white cell differential, manual CBC and Differential Lab Routine Encounter for long-term (current) use of medications 1 Occurrences starting 06/29/2022 until 06/29/2023 [facility] Work Phone: Comment on above: 1 Occurrences starting 06/29/2022 until 06/29/2023 Diagnostic radiograp hy of chest, combined PA and lateral XR CHEST PA AND LATERAL Imaging Routine Fever and chills Ordered: 08/15/2020 [facility] Comment on above: Ordered: 08/15/2020 End: 06-29-2023 Hepatic function 2000 panel - Serum or Plasma Hepatic function panel Lab Routine Encounter for long-term (current) use of medications 1 Occurrences starting 06/29/2022 until 06/29/2023 [facility] Comment on above: 1 Occurrences starting 06/29/2022 until 06/29/2023 NOVEL CORONAVIRUS- NASOPHARYNGEAL NOVEL CORONAVIRUS- NASOPHARYNGEAL Microbiology STAT Shortness of breath Cough Wheezy bronchitis 04/28/2020 8:34 PM EST [facility] POCT INFLUENZA, A B POCT INFLUEN ZA, A B Point of Care Testing Routine Fever and chills Ordered: 08/15/2020 [facility] Comment on above: Ordered: 08/15/2020 SURGICAL PATHOLOGY REQUEST SURGICAL PATHOLOGY REQUEST Surg Path Routine Neoplasm of soft tissue Ordered: 10/17/2024 [facility] Comment on above: Ordered: 10/17/2024 End: 06-29-2023 Tuberculosis screening M. Tuberculosis by [facility] Lab Routine Encounter for long-term (current) use of medications 1 Occurrences starting 06/29/2022 until 06/29/2023 [facility] Comment on above: 1 Occurrences starting 06/29/2022 until 06/29/2023 End: 09-22-2024 [facility] Comment on above: 1 Occurrences starting 09/22/2024 until 09/22/2024 Immunizations Immunization Date Immunization Notes Care Provider Isrrael ortiz 06-18-2005 hepatitis B vaccine, pediatric or pediatric/adolescent dosage Garo Adams MD Work Phone: [facility] 06-18-2005 tetanus toxoid, redu brian diphtheria toxoid, and acellular pertussis vaccine, adsorbed Garo Adams MD Work Phone: [facility] 02-07-2002 hepatitis B vaccine, pediatric or pediatric/adolescent dosage Garo Adams MD Work Phone: [facility] 02-07-2002 measles, mumps and rubella virus vaccine Garo Adams MD Work Phone: [facility] 02-24-1993 diphtheria, tetanus toxoids and pertussis vaccine Garo Adams MD Work Phone: [facility] 02-24-1993 trivalent poliovirus vaccine, live, oral Garo Adams MD Work Phone: [facility] 12-15-1991 haemophilus influenz ae type b vaccine, HbOC conjugate Garo Adams MD Work Phone: [facility] 12-27-1990 measles, mumps and rubella virus vaccine Garo Adams MD Work Phone: [facility] 09-23-1990 diphtheria, tetanus toxoids and pertussis vaccine Garo Adams MD Work Phone: [facility] 05-27-1990 diphtheria, tetanus toxoids and pertussis vaccine Garo Adams MD Work Phone: [facility] 05-27-1990 trivalent poliovirus vaccine, live, oral Garo Adams MD Work Phone: [facility] 03-21-1990 diphtheria, tetanus toxoids and pertussis vaccine Garo Adams MD Work Phone: [facility] 03-21-1990 trivalent poliovirus vaccine, live, oral Garo Adams MD Work Phone: [facility] Payers Date Payer Category Payer Self-pay 2024 Managed Care (unspecified) [employer] [id number] 2024 Private Health Insurance [id number] 2020 Unknown [id number] 2017 [facility] [id number] 2017 Unknown [id number]. [id number] 1989 Unknown [id number] 2.16.840.1.735876.3.579.2. 903 1989 Unknown [id number] 2.16.840.1.071440.3.579.2. 900 1989 Unknown [id number] 2.16.840.1.086076.3.579.2. 900 1989 Unknown [id number] 2.16.840.1.025566.3.579.2. 900 1989 Unknown [id number] 2.16.840.1.585773.3.579.2. 903 1989 Unknown [id number] 2.16.840.1.591300.3.579.2. 903 1989 Unknown [id number] 2.16.840.1.668669.3.579.2. 903 1989 Unknown [id number] 2.16.840.1.686016.3.579.2. 903 1989 Unknown [id number] 2.16.840.1.022295.3.579.2. 983 1989 Unknown [id number] 2.16.840.1.362066.3.579.2. 983 1989 Unknown [id number] 2.16.840.1.601350.3.579.2. 983 1989 Unknown [id number] 2.16.840.1.238069.3.579.2. 983 1989 Unknown [id number] 2.16.840.1.334652.3.579.2. 983 1989 Unknown [id number] 2.16.840.1.051258.3.579.2. 983 Medicaid MEDICAID [facility] [id number] Effective for all dates [phone] [address] [place] [address] [id number]. [id number] Self-pay [id number] Unknown [id number] Unknown [id number] 2.16.840.1.633985.3.579.2. 462 Unknown [id number] 2.16.840.1.989508.3.579.2. 462 Unknown [id number] 2.16.840.1.997351.3.579.2. 462 Unknown [id number] 2.16.840.1.840276.3.579.2. 462 Unknown [id number] 2.16.840.1.063310.3.579.2. 462 Unknown [id number] 2.16.840.1.805429.3.579.2. 462 Social History Date Type Detail Facility Start: 11-01-2017 End: 07-08-2021 Tobacco smoking status MOIS Current every day smoker [facility] Start: 04-27-2009 End: 03-13-2020 History of tobacco use Cigarette Smoker [facility] Work Phone: Start: 11-01-2017 End: 09-14-2022 Cigarettes smoked current (pack per day) - Reported [facility] Work Phone: Start: 1990 Sex Assigned At Not on file [facility] Work Phone: Start: 02-25-2020 End: 09-05-2024 Tobacco use and exposure Never used [facility] Start: 02-25-2020 End: 10-01-2021 Alcohol intake Current non-drinker of alcohol (finding) [facility] Start: 03-14-2020 End: 01-05-2022 Alcohol intake Current drinker of alcohol (finding) [facility] Start: 03-14-2020 Alcohol Comment only on her birthday [facility] Start: 06-08-2021 End: 02-02-2023 Exposure to SARS-CoV-2 (event) Not sure [facility] Start: 04-28-2020 End: 01-26-2025 Tobacco smoking status NHIS Former smoker [facility] Start: 04-27-2009 End: 03-13-2020 History of tobacco use Current smoker [facility] Start: 06-09-2021 End: 09-14-2022 Tobacco Comment 1 pack every week and a half [facility] Start: 03-14-2020 History SDOH Alcohol Frequency 99 [facility] Start: 07-08-2021 Tobacco Comment maybe 3 a maya [facility] Start: 04-27-2009 End: 09-14-2022 Tobacco smoking status NHIS Occasional tobacco smoker [facility] Start: 11-27-2021 History SDOH Alcohol Comment 1-2 x year [facility] Start: 03-01-2022 End: 10-04-2024 Alcohol intake Ex-drinker (finding) [facility] Start: 09-14-2022 End: 02-02-2023 Tobacco use panel [facility] Adolescent depressio n screening assessment 1 [facility] Start: 01-08-2017 Gender identity Identifies as female gender (finding) [facility] Start: 01-08-2017 Sex Female (finding) [facility] Start: 09-05-2024 Sexual orientation Choose not to dis close [facility] Tobacco smoking stat us MOIS Unknown if ever smoked [facility] Work Phone: Start: 1990 Sex Assigned At Female W [facility] Goals Date Patient Goal Desired Activity /State Comment on above: Body Mass Index (BMI ) is used to screen for weight categories that may lead to health problems. Formatting of this n ote might be different from the original. Body Mass Index (BMI) is used to screen for weight categories that may lead to health problems. Clinical Notes 10-23-2020 to 03-23-2025 Note Date & Type Note Facility 03-23-2025 Progress note [facility] 03-07-2025 Progress [facility] 03-07-2025 Progress note Note Date/Time March 07, 2025 3:27pm [facility] [address], [address] [place] [address] OFFICE VISIT Date of Service: 03/07/25 MR#: [id number] Acct: [id number] Name: VIOLET WARNER Rep #: [id number] : 1990 Provider: Dr. Eddy Day MD Age/Sex: 34/F Location: [facility] Status: Signed Intake Vital Signs 01/26/25 09:54 03/07/25 14:14 Height 5 ft 4 in Weight: 189 lb BMI 32.4 BP 162/103 H 149/93 H Blood Pressure Location Rt brachial Rt brachial Position Sitting Sitting Respiration 18 18 Pulse 74 75 Pulse Source Monitor Monitor Pulse Oximetry (%) 98 99 Oxygen Delivery Method room air room air Intake Visit Reasons: In office procedure Chief Complaint: In office procedure Is patient in pain?: No Allergies No Known Allergies Allergy (Unverified 03/07/25 14:14) Medications ?Medication ?Instructions ?Recorded ?Confirmed ?Type amlodipine 5 mg tablet 5 mg PO QDAY 01/26/25 History bimekizumab-bkzx 320 mg/2 mL mg subcut 01/26/25 History subcutaneous auto-injector (Bimzelx Autoinjector) lisinopril 20 1 tab PO QDAY 01/26/2503/07 History mg-hydrochlorothiazide 25 mg tablet pantoprazole 40 mg tablet,delayed 40 mg PO QDAY 03/07/25 History release doxycycline hyclate 100 mg capsule 100 mg PO BID proph ylaxis 7 days 03/07/25 03/07/25 Rx #14 [facility] Medical History Asthma Hypertension Surgical History Neoplasm of soft tissue Family History Other Diabetes Hypertension Social History Smoking Status: Former smoker HPI In office procedure Details: 1% lidocaine w/ epi ndc [id number] exp 2025 mar lot [id number] I talked her extensively about the risk benefits and alternatives to right axillary hidradenitis/keloid excision. She understood the risks of bleeding, infection, damage to surrounding structures including lymphatics and nerves, poor scarring, hypertrophic or keloidal scarring/unpredictable scars, and worsening of the webbing/scars/deformity. She elected to proceed. Office Procedures Procedure Time Out Time Out Informed consent given: Yes Consent signed: Yes Time out checklist: patient, procedure, site marked/identified, positioning of patient, supplies available, allergies confirmed and team agrees on procedure Time out staff in room: Yes Time out verified: Yes Time out date: 03/07/25 Time out time: 14:56 Coding Level of Care Code Attention Roads Superintendent Diagnoses Hydradenitis L73.2 Assessment and Plan (No Qualifiers) Assessment and Plan (1) Hydradenitis: Status: Acute Plan: Procedure Preoperative diagnosis: Right axillary hidradenitis and keloid scarring Procedure performed: Right axillary hidradenitis tract/keloid scar excision, 1 x2 cm (sent to pathology in 1 piece) Procedure details: Patient was correctly identified in the office and the area for excision was marked. This was a webbed hidradenitis tract/keloid scar in the right axilla measuring approximately 1 x 2 cm. She was anesthetized with 10 cc of 1% lidocaine with 1-200,000 epinephrine. It was given time to take effect. She was taken to the procedure room. her right axilla was prepped and draped in sterile fashion. Timeout was performed. 15 blade scalpel was used to excise the keloid scar/hidradenitis tract in the right axilla for an excision of a benign lesion of 1 x 2 cm and it was sent to pathology in 1 piece. Hemostasis obtained with the above-noted local solution and minimal electrocautery (so as to prevent keloid scarring). The wound was irrigated with copious amounts normal saline and Betadine. The wound was then closed with 4-0 interrupted Prolene suture for simple closure. Bacitracin was applied on top, 1 small area was left open to drain intentionally. Patient tolerated the procedure well. Postoperative plan: Patient will be prescribed 1 week of antibiotics. She is given strict return precautions. I talked her about follow-up next week with steroid injection if the wound appears to be healing well so as to prevent recurrence of any keloid scarring along thee hidradenitis tract. Okay to shower and get wet. 03/07/25 [id number] <Electronically signed by Jorge Day MD> Date _ Jorge Day MD Cosigner Signature: Date (if applicable) CC: [facility] Work Phone: 1(950) 637-762608-15-2025 Chief complaint+Reason for visit Narrative * Chief Complaint Admit Date HIDRADENITIS January 26, 2025 8: 58am In office procedure March 07, 2025 1:44pm EXCISION HYDRODENITIS LESIONS/ R AXILLAR Y LESION March 07, 2025 4:52pm Reason for Visit Admit Date Asthma January 26, 2025 8: 58am Hydradenitis January 26, 2025 8: 58am Hypertension January 26, 2025 8: 58am Hydradenitis March 07, 2025 1:44pm [facility] Work Phone: 1(234) 106-899908-15-2025 Chief complaint+Reason for visit Narrative * Chief Complaint Admit Date HIDRADENITIS January 26, 2025 8: 58am In office procedure March 07, 2025 1:44pm EXCISION HYDRODENITIS LESIONS/ R AXILLAR Y LESION March 07, 2025 4:52pm post op-suture removal/steroid injection March 23, 2025 11:25am Reason for Visit Admit Date Asthma January 26, 2025 8: 58am Hydradenitis January 26, 2025 8: 58am Hypertension January 26, 2025 8: 58am Hydradenitis March 07, 2025 1:44pm Hydradenitis March 23, 2025 1 1:25am Keloid March 23, 2025 1 1:25am [facility] Work Phone: 1(204) 574-386708-15-2025 Evaluation note* Diagnosis Onset Date Resolution Status Admit Date Asthma acute January 26, 2 025 8:58am Hydradenitis acute January 26, 2025 8:58am Hypertension chronic January 26, 2025 8:58am Hydradenitis acute March 072024 1:44pm [facility] Work Phone: 1(701) 989-240508-15-2025 Evaluation note* Diagnosis Onset Date Resolution Status Admit Date Asthma acute January 26, 2 025 8:58am Hydradenitis acute January 26, 2025 8:58am Hypertension chronic January 26, 2025 8:58am Hydradenitis acute March 072024 1:44pm Hydradenitis acute March 11:25am Keloid acute March 23, 2025 11:25am [facility] Work Phone: 1(395) 760-609305-06-2025 Procedure note* Rabia Peck MD - 10/17/2024 11:00 AM EDTAssociated Order(s): LESION BIOPSY/EXCISION Post-Procedure Diagnose(s): Neoplasm of soft tissue LESION BIOPSY/EXCISION Date/Time: 10/17/2024 11:00 AM Performed by: Rabia Peck MD Authorized by: Rabia Peck MD Pre-Procedure: Indications: Lesion back The possible diagnosis, procedure, need for treatment, potential complications, side effects, risksof the procedure, including infection, bleeding, recurrence, reaction to medications used, non- healing, scarring, and injury to adjacent structures, were discussed with the patient. The patient expressed understanding and wished to proceed, and informed consent for the procedure obtained. Procedure: Site marked and confirmed by patient. Skin was prepped with Betadine; 20 mL of lidocaine 1% with epi used to locally anesthetize area. Back lesion excision performed. 1 lesion excision(s) performed. Lesion 1 size (maximum dimension including margins): 10 (cm). Comments: The edges were undermined to allow tension-free closure. The skin was closed in layers with the described sutures. Steri-Strips were applied over the incision to reinforce the wound. Lengthof closure 5 cm The wound was closed with 3-0 Vicryl sutures. Hemostasis obtained with pressure. Specimen(s) sent for pathology. Post-Procedure: Patient tolerated the procedure well. Dressing applied with wound care instructions reviewed with and given to the patient. [facility] Work Phone: 1(548) 438-881905-06-2025 Procedure note* Rabia Peck MD - 10/17/2024 11:00 AM EDTAssociated Order(s): LESION BIOPSY/EXCISION Post-Procedure Diagnose(s): Neoplasm of soft tissue LESION BIOPSY/EXCISION Date/Time: 10/17/2024 11:00 AM Performed by: Rabia Peck MD Authorized by: Rabia Peck MD Pre-Procedure: Indications: Lesion back The possible diagnosis, procedure, need for treatment, potential complications, side effects, risksof the procedure, including infection, bleeding, recurrence, reaction to medications used, non- healing, scarring, and injury to adjacent structures, were discussed with the patient. The patient expressed understanding and wished to proceed, and informed consent for the procedure obtained. Procedure: Site marked and confirmed by patient. Skin was prepped with Betadine; 20 mL of lidocaine 1% with epi used to locally anesthetize area. Back lesion excision performed. 1 lesion excision(s) performed. Lesion 1 size (maximum dimension including margins): 10 (cm). Comments: The edges were undermined to allow tension-free closure. The skin was closed in layers with the described sutures. Steri-Strips were applied over the incision to reinforce the wound. Lengthof closure 5 cm The wound was closed with 3-0 Vicryl sutures. Hemostasis obtained with pressure. Specimen(s) sent for pathology. Post-Procedure: Patient tolerated the procedure well. Dressing applied with wound care instructions reviewed with and given to the patient. documented in this encounterParkview Pueblo West HospitalAppointedd [facility] [id number] History of Present illness Narrative* Cecile Cervantes, MAJOR ACCOUNT REPRESENTATIVE - 10/03/2024 3:30 PM EDT Edel is here for a 1 month follow up re: HYPERTENSION: She is taking her medication as ordered. She Is not checking BP at home. Her readingsare between 120's and 160's sbp. She exercises 0 times a week. She denies having headaches, denies getting dizzy, denies getting chest pains, denies palpitations. BP Readings from Last 3 Encounters: 09/05/24 (!) 166/104 02/02/23 167/87 09/14/22 142/88 Edema: Located on her RUE, near her wrist, present for over one year. She did have an ultrasound done on 09/22/24 regarding this after having it evaluated at her last OV. She reports she believes it has gotten bigger, but does not cause pain. Lab Review: Last labs drawn at [facility] on 09/09/24. She is also asking if possible that her dermatology meds be managed here today as well. She states she is not able to get in to her sprinkling system irrigator, until April 2025. She receives Humira for HS, as well as benzoyl peroxide. She states she has not received a Humira injection for the past two years,but when she was receiving it, found it effective in treating her HS. * Cordell Steve APRN-WET WHEELER - 10/03/2024 3:30 PM EDT HISTORY OF PRESENT ILLNESS Violet Warner female 1990 presents today with Hypertension, Edema (RUE), and Lab Review Edel is here for a 1 month follow up re: HYPERTENSION: She is taking her medication as ordered. She Is not checking BP at home. Her readingsare between 120's and 160's sbp. She exercises 0 times a week. She denies having headaches, denies getting dizzy, denies getting chest pains, denies palpitations. BP Readings from Last 3 Encounters: 09/05/24 (!) 166/104 02/02/23 167/87 09/14/22 142/88 Edema: Located on her RUE, near her wrist, present for over one year. Lump to back: She did have an ultrasound done on 09/22/24 regarding the lump to her back. She reports she believes it has gotten bigger, but does not cause pain.She was referred to Dr Peck and he ordered the US. He discussed excision of the mass in the office. US did show it was favorable for a lipoma. Lab Review: Last labs drawn at [facility] on 09/09/24. She is also asking if possible that her dermatology meds be managed here today as well. She states she is not able to get in to her sprinkling system irrigator, until April 2025. She receives Humira for HS, as well as benzoyl peroxide and clindamycin lotion. She states she has not received a Humira injection for the past two years, but when she was receiving it, found it effective in treating her HS. GERD: For the past 2 months She admits to having heartburn, denies swallowing difficulties, denies chest pains. She has taken Tums which will give temporary relief. She admits to caffeine use and sheeats spicy foods daily. She does not use any nicotine. HISTORY/MEDICATIONS: No Known Allergies Past Medical History: Diagnosis Date Allergies Asthma in adult Depression Essential hypertension, benign Hidradenitis suppurativa No past surgical history on file. Family History Problem Relation Age of Onset Diabetes Mother Stroke Father Hypertension Father Current Outpatient Medications: lisinopril-hydrochlorothiazide (Zestoretic) 20-25 MG per tablet, Take 1 tablet by mouth daily., Disp: 90 tablet, Rfl: 1 Albuterol 108 (90 Base) MCG/ACT Aero Soln inhaler, Inhale 2 puffs every 4 hours as needed for Shortness of Breath or Wheezing. (Patient not taking: Reported on 10/03/2024), Disp: 18 g, Rfl: 5 Benzoyl Peroxide 10 % Liquid, Take 1 Application by mouth daily. Wash in shower (Patient not taking: Reported on 10/03/2024), Disp: , Rfl: cetirizine 10 MG tablet, Take 1 tablet by mouth daily., Disp: 30 tablet, Rfl: 0 clindamycin 1 % Lotion lotion, Apply 1 Application topically Twice daily. To affected areas (Patient not taking: Reported on 10/03/2024), Disp: , Rfl: fluticasone 50 MCG/ACT Suspension nasal spray, 2 sprays by Nasal route 2 times daily. (Patient not taking: Reported on 10/03/2024), Disp: 18.2 mL, Rfl: 0 Humira Pen 40 MG/0.4ML Pen-injector Kit citrate free, Inject under the skin once a week. Pt unsure of dose (Patient not taking: Reported on 10/03/2024), Disp: , Rfl: loratadine 10 MG tablet, Take 1 tablet by mouth daily., Disp: 30 tablet, Rfl: 0 metFORMIN 500 MG tablet, Take 0.5 tablets by mouth daily. (Patient not taking: Reported on 10/03/2024), Disp: , Rfl: minocycline 100 MG capsule, Take 1 capsule by mouth Twice daily. (Patient not taking: Reported on 10/03/2024), Disp: , Rfl: rifAMPin 300 MG capsule, Take 1 capsule by mouth Twice daily. (Patient not taking: Reported on 10/03/2024), Disp: , Rfl: ROS Review of Systems Constitutional: Negative for appetite change, chills, diaphoresis, fatigue, fever and unexpected weight change. HENT: Negative for congestion, ear pain, hearing loss, rhinorrhea, sore throat and trouble swallowing. Eyes: Negative for pain, discharge, redness and visual disturbance. Respiratory: Negative for apnea, cough, choking, chest tightness, shortness of breath and wheezing. Cardiovascular: Negative for chest pain, palpitations and leg swelling. Gastrointestinal: Negative for abdominal distention, abdominal pain, anal bleeding, blood in stool,constipation, diarrhea and nausea. Positive for heartburn Endocrine: Negative. Genitourinary: Negative for decreased urine volume, difficulty urinating, dysuria, flank pain, frequency, hematuria and urgency. Musculoskeletal: Negative for arthralgias, back pain, gait problem, joint swelling, myalgias and neck pain. Skin: Positive for lump to back. Positive for RUE edema without erythema. Allergic/Immunologic: Negative. Neurological: Negative for dizziness, tremors, syncope, weakness, light- headedness, numbness and headaches. Hematological: Negative. Psychiatric/Behavioral: Negative. VITALS: Vitals: 10/03/24 1527 BP: (!) 146/96 Pulse: 99 Resp: 20 Temp: 98.4 degrees F (36.9 degrees C) TempSrc: Temporal SpO2: 99% Weight: 90 kg (198 lb 6.4 oz) Height: 1.6 m (5' 3") Body mass index is 35.14 kg/m . Wt Readings from Last 3 Encounters: 10/03/24 90 kg (198 lb 6.4 oz) 09/19/24 90.3 kg (199 lb) 09/05/24 90.4 kg (199 lb 3.2 oz) PHYSICAL EXAM Physical Exam Vitals and nursing note reviewed. Constitutional: Appearance: Normal appearance. She is obese. HENT: Head: Normocephalic. Cardiovascular: Rate and Rhythm: Normal rate and regular rhythm. Heart sounds: Normal heart sounds. Pulmonary: Effort: Pulmonary effort is normal. Breath sounds: Normal breath sounds. Musculoskeletal: Comments: RUE edema without erythema Skin: General: Skin is warm and dry. Neurological: Mental Status: She is alert and oriented to person, place, and time. Psychiatric: Mood and Affect: Mood normal. Behavior: Behavior normal. Thought Content: Thought content normal. Judgment: Judgment normal. ASSESSMENT/PLAN 1. Hypertension, unspecified type (Primary) Improved but not to goal. Will add amlodipine 5 mg daily. Discussed risks (side effects) and benefits of medication & encouraged to read about medication and take meds as directed. She will continue to monitor at home and contact the office with update in 1 month if not consistently <140/90. - amLODIPine 5 MG tablet; Take 1 tablet by mouth daily. Dispense: 30 tablet; Refill: 5 - lisinopril-hydrochlorothiazide (Zestoretic) 20-25 MG per tablet; Take 1 tablet by mouth daily. Dispense: 90 tablet; Refill: 1 2. Hidradenitis suppurativa Will start back on the benzoyl peroxide wash and clindamycin lotion. Referral to dermatology for evaluation to go back on Humira as it was effective in the past. Discussed risks (side effects) and benefits of medication & encouraged to read about medicationand take meds as directed. - AMB REFERRAL TO DERMATOLOGY - Benzoyl Peroxide 10 % Liquid; Take 1 Application by mouth daily. Wash in shower Dispense: 148 mL;Refill: 11 - clindamycin 1 % Lotion lotion; Apply a thin layer to affected areas bid Dispense: 60 mL; Refill: 11 3. Edema of right upper extremity Will follow up if not improved after having improvement of HS as she has issues with it in her axillary area as well. 4. Gastroesophageal reflux disease without esophagitis Discussed conservative treatment measures. Advised to decrease/avoid caffeine and spicy foods. Will placed on 3 month course of pantoprazole. Discussed risks (side effects) and benefits of medication & encouraged to read about medication and take meds as directed. Advised to contact the office if no improvement in 1 month. - Pantoprazole (Protonix) [address]; Take 1 tablet by mouth daily. Dispense: 30 tablet; Refill: 2 Return to clinic in 6 months or sooner prn. [facility] History of Present illness Narrative* Jessica Le - 09/19/2024 10:30 AM EDT Cyst on left side of back. Non tender, increasing in size. * Rabia Peck MD - 09/19/2024 10:30 AM EDT Referring Provider: Cordell Steve APRN-C* Reason for Consultation: Violet Warner is a 34 y.o. female Patient presents for Chief Complaint Patient presents with New Patient . There were no vitals filed for this visit. Cyst on left side of back. Non tender, increasing in size. General Examination General Appearance: comfortable, looks well, no acute distress. Head: Normocephalic. Cranial nerves grossly intact. Neck/Thyroid: supple. Skin: Warm and dry. Lungs: Non labored respirations. Abdomen: soft, nontender, nondistended. All pertinent labs, imaging, and testing were personally reviewed by me on 09/19/2024. Visit Summary Here for evaluation of mass on left back. This has been present for several months. It is slowly increasing in size. It is tender. Left back with a proximally 6 x 6 by centimeter well-circumscribed, freely mobile, subcutaneous mass. This can be excised under local anesthesia in the office. documented in this [facility] History of Present illness Narrative* Cecile Cervantes LPN - 09/05/2024 4:00 PM EDT Edel is here today to discuss HYPERTENSION: She is not taking her medication as ordered, stating she has not taken in a year, dueto losing insurance coverage. She Is not checking BP at home. She exercises 0 times a week. She reports having headaches, denies getting dizzy, reports getting chest pains, reports palpitations. BP Readings from Last 3 Encounters: 09/05/24 (!) 166/104 02/02/23 167/87 09/14/22 142/88 LUMP- She reports it is located: middle back, left side . She reports pain, reports swelling, denies tenderness, denies warmth to the area, denies drainage , denies redness, reports enlargement of the lump, denies fever, and denies the lump being "moveable" . This has developed 1 year(s) ago Patient denies any specific trauma to that area. She has tried the following treatments: massage and foundthem somewhat effective * Cordell Steve APRN-WET WHEELER - 09/05/2024 4:00 PM EDT Images from the original note were not included. HISTORY OF PRESENT ILLNESS Violet Warner female 1990 presents today with Back Lump (Middle left back) and Hypertension Edel is here today to discuss HYPERTENSION: She is not taking her medication as ordered, stating she has not taken in a year, dueto losing insurance coverage. She Is not checking BP at home. She exercises 0 times a week. She reports having headaches, denies getting dizzy, reports getting chest pains, reports palpitations. BP Readings from Last 3 Encounters: 09/05/24 (!) 166/104 02/02/23 167/87 09/14/22 142/88 LUMP- She reports it is located: middle back, left side . She reports pain, reports swelling, denies tenderness, denies warmth to the area, denies drainage , denies redness, reports enlargement of the lump, denies fever, and denies the lump being "moveable" . This has developed 1 year(s) ago Patient denies any specific trauma to that area. She has tried the following treatments: massage and foundthem somewhat effective RUE swelling: Ongoing for over a year. She admits to getting lumps in her axilla secondary to her HS. She is not currently on medication for this but has an appointment next month with dermatology servando started back on her meds. HISTORY/MEDICATIONS: No Known Allergies Past Medical History: Diagnosis Date Allergies Asthma in adult Depression Essential hypertension, benign Hidradenitis suppurativa No past surgical history on file. Family History Problem Relation Age of Onset Diabetes Mother Stroke Father Hypertension Father Current Outpatient Medications: lisinopril-hydrochlorothiazide (Zestoretic) 20-25 MG per tablet, Take 1 tablet by mouth daily., Disp: 90 tablet, Rfl: 1 Albuterol 108 (90 Base) MCG/ACT Aero Soln inhaler, Inhale 2 puffs every 4 hours as needed for Shortness of Breath or Wheezing. (Patient not taking: Reported on 09/05/2024), Disp: 18 g, Rfl: 5 Albuterol 108 (90 Base) MCG/ACT Aero Soln inhaler, 2 puffs every 4 hours while awake for next 5 days. (Patient not taking: Reported on 09/05/2024), Disp: 6.7 g, Rfl: 0 Benzoyl Peroxide 10 % Liquid, Take 1 Application by mouth daily. Wash in shower (Patient not taking: Reported on 09/05/2024), Disp: , Rfl: budesonide-formoterol 160-4.5 mcg/puff Aerosol inhaler, Inhale 2 puffs every 12 hours. (Patient nottaking: Reported on 09/05/2024), Disp: 10.2 g, Rfl: 5 cetirizine 10 MG tablet, Take 1 tablet by mouth daily., Disp: 30 tablet, Rfl: 0 clindamycin 1 % Lotion lotion, Apply 1 Application topically Twice daily. To affected areas (Patient not taking: Reported on 09/05/2024), Disp: , Rfl: fluticasone 50 MCG/ACT Suspension nasal spray, 2 sprays by Nasal route 2 times daily. (Patient not taking: Reported on 09/05/2024), Disp: 18.2 mL, Rfl: 0 Humira Pen 40 MG/0.4ML Pen-injector Kit citrate free, Inject under the skin once a week. Pt unsure of dose (Patient not taking: Reported on 09/05/2024), Disp: , Rfl: loratadine 10 MG tablet, Take 1 tablet by mouth daily., Disp: 30 tablet, Rfl: 0 metFORMIN 500 MG tablet, Take 0.5 tablets by mouth daily. (Patient not taking: Reported on 09/05/2024), Disp: , Rfl: minocycline 100 MG capsule, Take 1 capsule by mouth Twice daily. (Patient not taking: Reported on 09/05/2024), Disp: , Rfl: rifAMPin 300 MG capsule, Take 1 capsule by mouth Twice daily. (Patient not taking: Reported on 09/05/2024), Disp: , Rfl: ROS Review of Systems Constitutional: Negative for appetite change, chills, diaphoresis, fatigue, fever and unexpected weight change. HENT: Negative for congestion, ear pain, hearing loss, rhinorrhea, sore throat and trouble swallowing. Eyes: Negative for pain, discharge, redness and visual disturbance. Respiratory: Negative for apnea, cough, choking, chest tightness, shortness of breath and wheezing. Cardiovascular: Negative for chest pain, palpitations and leg swelling. Gastrointestinal: Negative for abdominal distention, abdominal pain, anal bleeding, blood in stool,constipation, diarrhea and nausea. Endocrine: Negative. Genitourinary: Negative for decreased urine volume, difficulty urinating, dysuria, flank pain, frequency, hematuria and urgency. Musculoskeletal: Negative for arthralgias, back pain, gait problem, joint swelling, myalgias and neck pain. Skin: Positive for lump and positive for RUE swelling Allergic/Immunologic: Negative. Neurological: Negative for dizziness, tremors, syncope, weakness, light- headedness, numbness and headaches. Hematological: Negative. Psychiatric/Behavioral: Negative. VITALS: Vitals: 09/05/24 1556 BP: (!) 166/104 Pulse: 87 Resp: 20 Temp: 99 degrees F (37.2 degrees C) TempSrc: Temporal SpO2: 100% Weight: 90.4 kg (199 lb 3.2 oz) Height: 1.6 m (5' 3") Body mass index is 35.29 kg/m . Wt Readings from Last 3 Encounters: 09/05/24 90.4 kg (199 lb 3.2 oz) 09/14/22 83 kg (183 lb) 02/27/22 89.4 kg (197 lb 3.2 oz) PHYSICAL EXAM Physical Exam Vitals and nursing note reviewed. Constitutional: Appearance: Normal appearance. She is obese. HENT: Head: Normocephalic. Cardiovascular: Rate and Rhythm: Normal rate and regular rhythm. Heart sounds: Normal heart sounds. Comments: RUE lymphedema noted without erythema or tenderness Pulmonary: Effort: Pulmonary effort is normal. Breath sounds: Normal breath sounds. Abdominal: General: Bowel sounds are normal. Palpations: Abdomen is soft. Musculoskeletal: Right lower leg: No edema. Left lower leg: No edema. Skin: General: Skin is warm and dry. Capillary Refill: Capillary refill takes less than 2 seconds. Neurological: Mental Status: She is alert and oriented to person, place, and time. Psychiatric: Mood and Affect: Mood normal. Behavior: Behavior normal. Thought Content: Thought content normal. Judgment: Judgment normal. ASSESSMENT/PLAN 1. Hypertension, unspecified type (Primary) Uncontrolled. Will start back on the lisinopril-hydrochlorothiazide 20-25 mg dose. She will continue to monitor at home. Advised to contact the office in 2 week if readings still >140/90. Discussed risks (side effects) and benefits of medication & encouraged to read about medication and takemeds as directed. - CBC, EDIF, PLATELET; Future - COMPREHENSIVE METABOLIC PANEL; Future - LIPID PANEL W CALCULATED LDL; Future - TSH W/FT4 REFLEX; Future - lisinopril-hydrochlorothiazide (Zestoretic) 20-25 MG per tablet; Take 1 tablet by mouth daily. Dispense: 90 tablet; Refill: 1 2. Moderate persistent asthma without complication Controlled. Denies need for albuterol but may call back in for refill as needed. 3. Prediabetes Will check results. - HEMOGLOBIN A1C; Future 4. Edema of right upper extremity Differential dx discussed. Could be secondary from issues with her HS. Will get US for further evaluation. - US NON VASCULAR EXTREMITY UPPER RIGHT WITHOUT CONTRAST; Future 5. Sebaceous cyst Referral placed for evaluation for removal. Advised on s/sx of secondary infection. - AMB REFERRAL TO PLASTIC SURGERY Return to clinic in 1 month or sooner prn. documented in this encounter[facility] History of Present illness Narrative* Nithya Keller, DAYANARA - 02/02/2023 9:54 AM EDT Patient instructed on proper use of spacer. documented in this encounterMer[facility] Emergency department Note* Esther Chavez RN - 02/02/2023 9:39 AM EDT Call to RT for spacer instruct. [facility] Note* Esther Chavez RN - 02/02/2023 9:39 AM EDT Call to RT for spacer instruct. * Esther Chavez RN - 02/02/2023 8:17 AM EDT Pt reports she is feeling better. * Esther Chavez RN - 02/02/2023 7:33 AM EDT Pt getting into gown. * Esther Chavez RN - 02/02/2023 7:23 AM EDT Ultrasound cart side. * Esther Chavez RN - 02/02/2023 7:20 AM EDT Lab cart side. * Bar Bland MD - 02/02/2023 7:11 AM EDT Emergency Room Note [facility] EM[facility] Service Date:.02/02/23 PCP: Cordell Steve Chief Complaint: Chief Complaint Patient presents with Abdominal Pain Abdominal pain since Wednesday. HPI Violet Warner is a 32 y.o. female presents to the ED today due to abdominal pain. Patient statesradhae has had upper abdominal pain since Wednesday. States gradually getting worse. Hurts to move. Hurts to cough. States she has had fever off and on for the past 24-36 hours up to 101 at home. States she is here today because she feels like she has no energy and has significant pain with movement. She points to the right upper quadrant and epigastric area. She has decreased appetite but denies anyvomiting. States she is having loose stools. She has no melena hematochezia. She rates the pain as severe in intensity. It is an aching pain but has a sharp component with movement. Exacerbated with movement and coughing as above. Review of Systems: Review of Systems She is had low-grade fever and chills as mentioned above. She also states she has had some cough and congestion over the past few days. States she took a COVID test at home and it was negative. She has not complained any sore throat. She has no dysuria, hematuria, or other genitourinary complaints.Last normal menses was January 13. She denies any lower abdominal or pelvic pain. She denies any flank or back pain. She is not complaining anterior chest pain or shortness of breath. She has no rash. She has not noticed any swelling or asymmetry of extremities. She has no lightheadedness or syncope. She generally feels like she does not have much energy. She has not noticed any jaundice or diffuse pruritus. I did go through remainder of review of systems with patient to include 10 systems it was negative unless mentioned above in history of present illness. Past Medical History: Past Medical History: Diagnosis Date Allergies Asthma in adult Depression Essential hypertension, benign Hidradenitis suppurativa Past Surgical History: No past surgical history on file. Allergies: No Known Allergies Medications: Patient's Medications New Prescriptions ALBUTEROL 108 (90 BASE) MCG/ACT AERO SOLN INHALER 2 puffs every 4 hours while awake for next 5 days. AZITHROMYCIN 250 MG TABLET Take 500 mg X1 then 250 mg PO Once Daily X 4 days CEFUROXIME 500 MG TABLET Take 1 tablet by mouth 2 times daily for 10 days. Previous Medications ALBUTEROL 108 (90 BASE) MCG/ACT AERO SOLN INHALER Inhale 2 puffs every 4 hours as needed for Shortness of Breath or Wheezing. BENZOYL PEROXIDE 10 % LIQUID Take 1 Application by mouth daily. Wash in shower BUDESONIDE-FORMOTEROL 160-4.5 MCG/PUFF AEROSOL INHALER Inhale 2 puffs every 12 hours. BUPROPION 300 MG TABLET XL Take 1 tablet by mouth daily every morning. CETIRIZINE 10 MG TABLET Take 1 tablet by mouth daily. CLINDAMYCIN 1 % LOTION LOTION Apply 1 Application topically Twice daily. To affected areas FLUTICASONE 50 MCG/ACT SUSPENSION NASAL SPRAY 2 sprays by Nasal route 2 times daily. HUMIRA PEN 40 MG/0.4ML PEN-INJECTOR KIT CITRATE FREE Inject under the skin once a week. Pt unsure of dose LISINOPRIL-HYDROCHLOROTHIAZIDE (ZESTORETIC) 20-25 MG PER TABLET Take 1 tablet by mouth daily. LORATADINE 10 MG TABLET Take 1 tablet by mouth daily. METFORMIN 500 MG TABLET Take 0.5 tablets by mouth daily. MINOCYCLINE 100 MG CAPSULE Take 1 capsule by mouth Twice daily. RIFAMPIN 300 MG CAPSULE Take 1 capsule by mouth Twice daily. Modified Medications No medications on file Discontinued Medications ALBUTEROL (2.5 MG/3ML) 0.083% INHALATION SOLUTION Take 3 mL by nebulization every 4 hours as neededfor Wheezing. Inhalation via nebulizer Family History: Family History Problem Relation Age of Onset Diabetes Mother Stroke Father Hypertension Father Social History: Social History Socioeconomic History Marital status: Single Spouse name: Not on file Number of children: Not on file Years of education: Not on file Highest education level: Not on file Occupational History Not on file Tobacco Use Smoking status: Some Days Types: Cigarettes Start date: 04/27/2009 Smokeless tobacco: Never Tobacco comments: 1 pack every week and a half Vaping Use Vaping Use: Former Substances: Nicotine Substance and Sexual Activity Alcohol use: Not Currently Comment: 1-2 x year Drug use: Not Currently Sexual activity: Yes Partners: Female Other Topics Concern Service Not Asked Blood Transfusions Not Asked Caffeine Concern Not Asked Occupational Exposure No Hobby Hazards No Sleep Concern Not Asked Stress Concern Not Asked Weight Concern Not Asked Special Diet Not Asked Back Care Not Asked Exercise Not Asked Bike Helmet Not Asked Seat Belt Not Asked Domestic Violence No Social History Narrative Not on file Social Determinants of Health Financial Resource Strain: Not on file Food Insecurity: Not on file Transportation Needs: Not on file Physical Activity: Not on file Stress: Not on file Social Connections: Not on file Intimate Partner Violence: Not on file Housing Stability: Not on file Physical Exam: Physical Exam 32-year-old female is awake alert. Speaking in full sentences. Answering questions appropriately. Vital signs were reviewed. She is somewhat hypertensive here in emergency department but she is not febrile. She is oriented to person, place, and time. Carries on conversation appropriately. Sclera and conjunctiva are clear and moist. No redness or drainage. Mouth has pink moist mucosa. No dental ororal lesions. There is no swelling, erythema, or other significant abnormalities in the posterior pharynx. She speaks in a normal voice and handle secretions without difficulty. Neck is supple there is no palpable adenopathy or masses. She has good range of motion neck without difficulty or discomfort. Lungs are clear to auscultation bilaterally with good air movement. Inspiratory expiratory phase appears symmetrical at this time. Heart is regular. No murmur. Abdomen is soft. Bowel sounds are present prior to palpation. No rushes or tinkling sounds. She has no tenderness right or left lower quadrant. She had minimal tenderness left upper quadrant. She has fairly significant tenderness epigastric area and right upper quadrant. When I push in the right upper quadrant ask her to take a deep breath her inspiratory effort is halted with a positive Busby sign. She had no flank tenderness. NoCVA tenderness. No tenderness over the back. Femoral pulses are palpable and symmetrical. No obvious inguinal hernia. Skin is warm and dry. No rash. She does not appear jaundiced. She has no posterior calf tenderness. No pitting peripheral edema. Peripheral pulses are palpable and symmetrical in the upper and lower extremities. Capillary refill is brisk distally. Vital Signs During ED Visit Patient Vitals for the past 24 hrs: BP Temp Temp src Pulse Resp SpO2 Height 02/02/23 0818 (!) 166/101 -- -- 80 18 100 % -- 02/02/23 0721 (!) 182/109 -- -- 84 18 100 % -- 02/02/23 0634 -- -- -- -- -- -- 1.6 m (5' 3") 02/02/23 0631 (!) 184/109 98.4 F (36.9 C) Oral 90 14 100 % -- Orders/Results: Orders Placed This Encounter [facility] 1 - NASOPHARYNGEAL US ABDOMEN RUQ/LIVER/GB XR CHEST PA AND LATERAL COMPREHENSIVE METABOLIC PANEL CBC, EDIF, PLATELET LIPASE AMB REFERRAL TO FAMILY PRACTICE RT COMMUNICATION ORDER diphenhydrAMINE (BENADRYL) injection 50 mg Metoclopramide (REGLAN) injection 10 mg Ondansetron 4mg/2ml (ZOFRAN) injection 4 mg Pantoprazole (PROTONIX) injection 40 mg Lactated ringers IV solution 1,000 mL cefTRIAXone (ROCEPHIN) 1 g in sodium chloride 0.9% (MB PLUS) 50 mL (total volume) IVPB Azithromycin 250 MG tablet cefUROXime 500 MG tablet Albuterol 108 (90 Base) MCG/ACT Aero Soln inhaler potassium bicarbonate (EFFER-K) effervescent tablet 50 mEq URINALYSIS, MACRO HCG QUALITATIVE, URINE URINE MICROSCOPIC Results for orders placed or performed during the hospital encounter of 02/02/23 [facility] 1 - NASOPHARYNGEAL Specimen: NASOPHARYNGEAL; Fluid/Swab Result Value Ref Range SARS COV 2 RNA, QL REAL TIME RT PCR NOT DETECTED NOT DETECTED NARRATIVE -1 This test was performed using isothermal GISELA and has been approved as Emergency Use Authorization (EUA) for the qualitative detection [id number] nucleic acid. COMPREHENSIVE METABOLIC PANEL Result Value Ref Range Glucose 105 (H) 70 - 100 MG/DL BUN 8 7 - 20 MG/DL CREATININE SERUM 0.69 (L) 0.70 - 1.20 MG/DL SODIUM 139 137 - 145 MMOL/L POTASSIUM 3.0 (L) 3.5 - 5.1 MMOL/L CHLORIDE 107 98 - 107 MMOL/L CALCIUM 8.1 (L) 8.4 - 10.2 MG/DL PROTEIN, TOTAL 6.7 6.3 - 8.2 GM/DL Albumin 3.3 (L) 3.5 - 5.0 G/dl BILIRUBIN, TOTAL 0.5 0.2 - 1.3 MG/DL AST 25 14 - 36 IU/L ALKALINE PHOSPHATASE 57 38 - 126 IU/L CARBON DIOXIDE (CO2) 25 22 - 30 MMOL/L A/G Ratio 1.0 RATIO ALT 24 <35 IU/L ESTIMATED GFR, NON AMER 104 ml/min/1.73sq.m ESTIMATED GFR, 126 ml/min/1.73sq.m GFR COMMENT Average GFR for 30-39 years old = 107. CBC, EDIF, PLATELET Result Value Ref Range WBC (WHITE BLOOD COUNT) 6.2 3.6 - 11.0 10*3/uL RBC 3.58 (L) 4.0 - 5.4 10*6/uL HEMOGLOBIN (HGB) 12.1 12.0 - 16.0 G/DL HEMATOCRIT (HCT) 35.5 (L) 36.0 - 48.0 % MEAN CELL VOLUME 99.0 80.0 - 100.0 FL Mean Cell HGB 33.7 26.0 - 35.0 PG MEAN CELL HGB CONCENTRATION 34.0 27.0 - 37.0 G/DL RBC DISTRIBUTION 13.2 11.5 - 14.5 % PLATELET COUNT 316 130 - 400 10*3/uL MEAN PLATELET VOLUME 6.7 (L) 7.4 - 11.0 FL DIFFERENTIAL TYPE AUTO DIFF % NEUTROPHILS 65.2 37.0 - 75.0 % LYMPHOCYTE 18.2 (L) 20.0 - 55.0 % MONOCYTE % 11.2 (H) 0.0 - 10.0 % EOSINOPHIL % 4.9 0.0 - 11.0 % BASOPHIL % 0.5 0.0 - 2.0 % Absolute Neutrophil Count 4.1 1.4 - 6.5 10*3/uL LYMPHOCYTES, ABSOLUTE 1.1 (L) 1.2 - 3.4 10*3/uL MONOCYTES, ABSOLUTE 0.7 0.0 - 0.7 10*3/uL ABSOLUTE EOSINOPHIL COUNT 0.3 0.0 - 0.7 10*3/uL ABSOLUTE BASOPHIL COUNT 0.0 0.0 - 0.2 10*3/uL LIPASE Result Value Ref Range LIPASE 26 23 - 300 U/L URINALYSIS, MACRO Result Value Ref Range COLOR, URINE YELLOW YELLOW APPEARANCE, URINE HAZY (A) CLEAR Specific [place], Urine >1.030 (H) 1.010 - 1.025 PH URINE 5.5 5.0 - 7.0 Urine Protein 100 (A) NEGATIVE mg/dl GLUCOSE, URINE NEGATIVE NEGATIVE mg/dl KETONES, URINE TRACE (A) NEGATIVE mg/dl BILIRUBIN, URINE SMALL (A) NEGATIVE BLOOD, URINE DIPSTICK NEGATIVE NEGATIVE NITRITES, URINE NEGATIVE NEGATIVE UROBILINOGEN, URINE 1.0 0.2 - 1.0 E.U./dL LEUKOCYTE ESTERASE, URINE NEGATIVE NEGATIVE HCG QUALITATIVE, URINE Result Value Ref Range HCG, QUALITATIVE, URINE NEGATIVE NEGATIVE URINE MICROSCOPIC Result Value Ref Range WBC, URINE NEGATIVE NEGATIVE /HPF RBC, URINE 1 TO 5 NEGATIVE /HPF Epithelial Cells UA 10 TO 20 /HPF Mucus 3+ (A) NEGATIVE BACTERIA, URINE 1+ (A) NEGATIVE CRYSTALS, URINE NONE NONE CASTS, URINE NONE NONE /LPF COMMENT, URINE CULTURE CRITERIA NOT MET, NO CULTURE PERFORMED. Radiographic Imaging XR CHEST PA AND LATERAL Final Result IMPRESSION: There is subtle increased density posterior medially within the left lower chest which in the right clinical setting can be associated with a pneumonia. Appropriate clinical management and a follow-up chest radiograph to confirm complete resolution recommended. US ABDOMEN RUQ/LIVER/GB Final Result IMPRESSION: Ultrasound study of the right upper quadrant of the abdomen is grossly unremarkable. Procedures: Procedures Moderate Sedation Procedure: No ED Summary/MDM Patient is given K-Lyte Cl 50 mEq by mouth for potassium of 3.0. Her ultrasound of the gallbladder had no acute findings. Unfortunately there is evidence of early infiltrate in the lower lung on the left side. This may be causing her upper abdominal pain. She does state that her abdomen hurts when she coughs. She has had the upper respiratory complaints. Her COVID test is negative. At this time she is given a dose IV Rocephin. She is discharged home on Zithromax and Ceftin. Given a prescriptionfor albuterol inhaler. She is given a spacer here in emergency department and instructed in its use. She is to use the albuterol inhaler with the spacer 2 puffs every 4 hours while awake for the next5 days. She is given a work excuse for the next 2 days. She is to follow-up with cordell Steve in the office later this week or sometime next week for recheck. I did tell her it is important that she make sure her blood pressure is recheck at that time as well when she is feeling improved. She is to return immediately she develops shortness of breath or feels worse in any way. I spoke at length with the patient. She had no further questions at this time. She is discharged in good condition. Clinical Impression: 1. Pneumonia of left lower lobe due to infectious organism 2. Upper abdominal pain 3. Hypokalemia No follow-ups on file. New Prescriptions ALBUTEROL 108 (90 BASE) MCG/ACT AERO SOLN INHALER 2 puffs every 4 hours while awake for next 5 days. AZITHROMYCIN 250 MG TABLET Take 500 mg X1 then 250 mg PO Once Daily X 4 days CEFUROXIME 500 MG TABLET Take 1 tablet by mouth 2 times daily for 10 days. Discontinued Medications ALBUTEROL (2.5 MG/3ML) 0.083% INHALATION SOLUTION Take 3 mL by nebulization every 4 hours as neededfor Wheezing. Inhalation via nebulizer An After Visit Summary was printed and given to the patient with above information. . Bar Bland MD 02/02/23 0926 * Julia Crum RN - 02/02/2023 6:55 AM EDT Repoty given to Esther OLSON [facility] Discharge instructions* Discharge Instructions* Bar Bland MD - 02/02/2023 9:10 AM EDT Use albuterol inhaler with spacer 2 puffs every 4 hours while awake for the next 5 days. Call cordell Steve's office to day and schedule follow-up later this week or sometime next week. Lots of fluids and rest today and tomorrow. Return to the emergency room immediately if you develop shortness of breath, increased or differentpain, or feel worse in any way. * Attachments The following attachments cannot be sent through [facility] Everywhere. * Pneumonia (Iranian) * Abdominal Pain (Iranian) * Hypokalemia (Iranian) [facility] Emergency [facility] Note* Esther Chavez RN - 02/02/2023 8:17 AM EDT Pt reports she is feeling better. [facility] Note* Esther Chavez RN - 02/02/2023 7:33 AM EDT Pt getting into gown. [facility]* Esther Chavez RN - 02/02/2023 7:23 AM EDT Ultrasound cart side. [facility]* Esther Chavez RN - 02/02/2023 7:20 AM EDT Lab cart side. [facility] Emergency department Note* Bar Bland MD - 02/02/2023 7:11 AM EDT Emergency Room Note [facility] Service Date:.02/02/23 PCP: Cordell Steve Chief Complaint: Chief Complaint Patient presents with Abdominal Pain Abdominal pain since Wednesday. HPI Violet Warner is a 32 y.o. female presents to the ED today due to abdominal pain. Patient statesterry has had upper abdominal pain since Wednesday. States gradually getting worse. Hurts to move. Hurts to cough. States she has had fever off and on for the past 24-36 hours up to 101 at home. States she is here today because she feels like she has no energy and has significant pain with movement. She points to the right upper quadrant and epigastric area. She has decreased appetite but denies anyvomiting. States she is having loose stools. She has no melena hematochezia. She rates the pain as severe in intensity. It is an aching pain but has a sharp component with movement. Exacerbated with movement and coughing as above. Review of Systems: Review of Systems She is had low-grade fever and chills as mentioned above. She also states she has had some cough and congestion over the past few days. States she took a COVID test at home and it was negative. She has not complained any sore throat. She has no dysuria, hematuria, or other genitourinary complaints.Last normal menses was January 13. She denies any lower abdominal or pelvic pain. She denies any flank or back pain. She is not complaining anterior chest pain or shortness of breath. She has no rash. She has not noticed any swelling or asymmetry of extremities. She has no lightheadedness or syncope. She generally feels like she does not have much energy. She has not noticed any jaundice or diffuse pruritus. I did go through remainder of review of systems with patient to include 10 systems it was negative unless mentioned above in history of present illness. Past Medical History: Past Medical History: Diagnosis Date Allergies Asthma in adult Depression Essential hypertension, benign Hidradenitis suppurativa Past Surgical History: No past surgical history on file. Allergies: No Known Allergies Medications: Patient's Medications New Prescriptions ALBUTEROL 108 (90 BASE) MCG/ACT AERO SOLN INHALER 2 puffs every 4 hours while awake for next 5 days. AZITHROMYCIN 250 MG TABLET Take 500 mg X1 then 250 mg PO Once Daily X 4 days CEFUROXIME 500 MG TABLET Take 1 tablet by mouth 2 times daily for 10 days. Previous Medications ALBUTEROL 108 (90 BASE) MCG/ACT AERO SOLN INHALER Inhale 2 puffs every 4 hours as needed for Shortness of Breath or Wheezing. BENZOYL PEROXIDE 10 % LIQUID Take 1 Application by mouth daily. Wash in shower BUDESONIDE-FORMOTEROL 160-4.5 MCG/PUFF AEROSOL INHALER Inhale 2 puffs every 12 hours. BUPROPION 300 MG TABLET XL Take 1 tablet by mouth daily every morning. CETIRIZINE 10 MG TABLET Take 1 tablet by mouth daily. CLINDAMYCIN 1 % LOTION LOTION Apply 1 Application topically Twice daily. To affected areas FLUTICASONE 50 MCG/ACT SUSPENSION NASAL SPRAY 2 sprays by Nasal route 2 times daily. HUMIRA PEN 40 MG/0.4ML PEN-INJECTOR KIT CITRATE FREE Inject under the skin once a week. Pt unsure of dose LISINOPRIL-HYDROCHLOROTHIAZIDE (ZESTORETIC) 20-25 MG PER TABLET Take 1 tablet by mouth daily. LORATADINE 10 MG TABLET Take 1 tablet by mouth daily. METFORMIN 500 MG TABLET Take 0.5 tablets by mouth daily. MINOCYCLINE 100 MG CAPSULE Take 1 capsule by mouth Twice daily. RIFAMPIN 300 MG CAPSULE Take 1 capsule by mouth Twice daily. Modified Medications No medications on file Discontinued Medications ALBUTEROL (2.5 MG/3ML) 0.083% INHALATION SOLUTION Take 3 mL by nebulization every 4 hours as neededfor Wheezing. Inhalation via nebulizer Family History: Family History Problem Relation Age of Onset Diabetes Mother Stroke Father Hypertension Father Social History: Social History Socioeconomic History Marital status: Single Spouse name: Not on file Number of children: Not on file Years of education: Not on file Highest education level: Not on file Occupational History Not on file Tobacco Use Smoking status: Some Days Types: Cigarettes Start date: 04/27/2009 Smokeless tobacco: Never Tobacco comments: 1 pack every week and a half Vaping Use Vaping Use: Former Substances: Nicotine Substance and Sexual Activity Alcohol use: Not Currently Comment: 1-2 x year Drug use: Not Currently Sexual activity: Yes Partners: Female Other Topics Concern Service Not Asked Blood Transfusions Not Asked Caffeine Concern Not Asked Occupational Exposure No Hobby Hazards No Sleep Concern Not Asked Stress Concern Not Asked Weight Concern Not Asked Special Diet Not Asked Back Care Not Asked Exercise Not Asked Bike Helmet Not Asked Seat Belt Not Asked Domestic Violence No Social History Narrative Not on file Social Determinants of Health Financial Resource Strain: Not on file Food Insecurity: Not on file Transportation Needs: Not on file Physical Activity: Not on file Stress: Not on file Social Connections: Not on file Intimate Partner Violence: Not on file Housing Stability: Not on file Physical Exam: Physical Exam 32-year-old female is awake alert. Speaking in full sentences. Answering questions appropriately. Vital signs were reviewed. She is somewhat hypertensive here in emergency department but she is not febrile. She is oriented to person, place, and time. Carries on conversation appropriately. Sclera and conjunctiva are clear and moist. No redness or drainage. Mouth has pink moist mucosa. No dental ororal lesions. There is no swelling, erythema, or other significant abnormalities in the posterior pharynx. She speaks in a normal voice and handle secretions without difficulty. Neck is supple there is no palpable adenopathy or masses. She has good range of motion neck without difficulty or discomfort. Lungs are clear to auscultation bilaterally with good air movement. Inspiratory expiratory phase appears symmetrical at this time. Heart is regular. No murmur. Abdomen is soft. Bowel sounds are present prior to palpation. No rushes or tinkling sounds. She has no tenderness right or left lower quadrant. She had minimal tenderness left upper quadrant. She has fairly significant tenderness epigastric area and right upper quadrant. When I push in the right upper quadrant ask her to take a deep breath her inspiratory effort is halted with a positive Busby sign. She had no flank tenderness. NoCVA tenderness. No tenderness over the back. Femoral pulses are palpable and symmetrical. No obvious inguinal hernia. Skin is warm and dry. No rash. She does not appear jaundiced. She has no posterior calf tenderness. No pitting peripheral edema. Peripheral pulses are palpable and symmetrical in the upper and lower extremities. Capillary refill is brisk distally. Vital Signs During ED Visit Patient Vitals for the past 24 hrs: BP Temp Temp src Pulse Resp SpO2 Height 02/02/23 0818 (!) 166/101 -- -- 80 18 100 % -- 02/02/23 0721 (!) 182/109 -- -- 84 18 100 % -- 02/02/23 0634 -- -- -- -- -- -- 1.6 m (5' 3") 02/02/23 0631 (!) 184/109 98.4 F (36.9 C) Oral 90 14 100 % -- Orders/Results: Orders Placed This Encounter [facility] LAB 1 - NASOPHARYNGEAL US ABDOMEN RUQ/LIVER/GB XR CHEST PA AND LATERAL COMPREHENSIVE METABOLIC PANEL CBC, EDIF, PLATELET LIPASE AMB REFERRAL TO FAMILY PRACTICE RT COMMUNICATION ORDER diphenhydrAMINE (BENADRYL) injection 50 mg Metoclopramide (REGLAN) injection 10 mg Ondansetron 4mg/2ml (ZOFRAN) injection 4 mg Pantoprazole (PROTONIX) injection 40 mg Lactated ringers IV solution 1,000 mL cefTRIAXone (ROCEPHIN) 1 g in sodium chloride 0.9% (MB PLUS) 50 mL (total volume) IVPB Azithromycin 250 MG tablet cefUROXime 500 MG tablet Albuterol 108 (90 Base) MCG/ACT Aero Soln inhaler potassium bicarbonate (EFFER-K) effervescent tablet 50 mEq URINALYSIS, MACRO HCG QUALITATIVE, URINE URINE MICROSCOPIC Results for orders placed or performed during the hospital encounter of 02/02/23 [facility] 1 - NASOPHARYNGEAL Specimen: NASOPHARYNGEAL; Fluid/Swab Result Value Ref Range SARS COV 2 RNA, QL REAL TIME RT PCR NOT DETECTED NOT DETECTED NARRATIVE -1 This test was performed using isothermal GISELA and has been approved as Emergency Use Authorization (EUA) for the qualitative detection [id number] nucleic acid. COMPREHENSIVE METABOLIC PANEL Result Value Ref Range Glucose 105 (H) 70 - 100 MG/DL BUN 8 7 - 20 MG/DL CREATININE SERUM 0.69 (L) 0.70 - 1.20 MG/DL SODIUM 139 137 - 145 MMOL/L POTASSIUM 3.0 (L) 3.5 - 5.1 MMOL/L CHLORIDE 107 98 - 107 MMOL/L CALCIUM 8.1 (L) 8.4 - 10.2 MG/DL PROTEIN, TOTAL 6.7 6.3 - 8.2 GM/DL Albumin 3.3 (L) 3.5 - 5.0 G/dl BILIRUBIN, TOTAL 0.5 0.2 - 1.3 MG/DL AST 25 14 - 36 IU/L ALKALINE PHOSPHATASE 57 38 - 126 IU/L CARBON DIOXIDE (CO2) 25 22 - 30 MMOL/L A/G Ratio 1.0 RATIO ALT 24 <35 IU/L ESTIMATED GFR, NON AMER 104 ml/min/1.73sq.m ESTIMATED GFR, 126 ml/min/1.73sq.m GFR COMMENT Average GFR for 30-39 years old = 107. CBC, EDIF, PLATELET Result Value Ref Range WBC (WHITE BLOOD COUNT) 6.2 3.6 - 11.0 10*3/uL RBC 3.58 (L) 4.0 - 5.4 10*6/uL HEMOGLOBIN (HGB) 12.1 12.0 - 16.0 G/DL HEMATOCRIT (HCT) 35.5 (L) 36.0 - 48.0 % MEAN CELL VOLUME 99.0 80.0 - 100.0 FL Mean Cell HGB 33.7 26.0 - 35.0 PG MEAN CELL HGB CONCENTRATION 34.0 27.0 - 37.0 G/DL RBC DISTRIBUTION 13.2 11.5 - 14.5 % PLATELET COUNT 316 130 - 400 10*3/uL MEAN PLATELET VOLUME 6.7 (L) 7.4 - 11.0 FL DIFFERENTIAL TYPE AUTO DIFF % NEUTROPHILS 65.2 37.0 - 75.0 % LYMPHOCYTE 18.2 (L) 20.0 - 55.0 % MONOCYTE % 11.2 (H) 0.0 - 10.0 % EOSINOPHIL % 4.9 0.0 - 11.0 % BASOPHIL % 0.5 0.0 - 2.0 % Absolute Neutrophil Count 4.1 1.4 - 6.5 10*3/uL LYMPHOCYTES, ABSOLUTE 1.1 (L) 1.2 - 3.4 10*3/uL MONOCYTES, ABSOLUTE 0.7 0.0 - 0.7 10*3/uL ABSOLUTE EOSINOPHIL COUNT 0.3 0.0 - 0.7 10*3/uL ABSOLUTE BASOPHIL COUNT 0.0 0.0 - 0.2 10*3/uL LIPASE Result Value Ref Range LIPASE 26 23 - 300 U/L URINALYSIS, MACRO Result Value Ref Range COLOR, URINE YELLOW YELLOW APPEARANCE, URINE HAZY (A) CLEAR Specific [place], Urine >1.030 (H) 1.010 - 1.025 PH URINE 5.5 5.0 - 7.0 Urine Protein 100 (A) NEGATIVE mg/dl GLUCOSE, URINE NEGATIVE NEGATIVE mg/dl KETONES, URINE TRACE (A) NEGATIVE mg/dl BILIRUBIN, URINE SMALL (A) NEGATIVE BLOOD, URINE DIPSTICK NEGATIVE NEGATIVE NITRITES, URINE NEGATIVE NEGATIVE UROBILINOGEN, URINE 1.0 0.2 - 1.0 E.U./dL LEUKOCYTE ESTERASE, URINE NEGATIVE NEGATIVE HCG QUALITATIVE, URINE Result Value Ref Range HCG, QUALITATIVE, URINE NEGATIVE NEGATIVE URINE MICROSCOPIC Result Value Ref Range WBC, URINE NEGATIVE NEGATIVE /HPF RBC, URINE 1 TO 5 NEGATIVE /HPF Epithelial Cells UA 10 TO 20 /HPF Mucus 3+ (A) NEGATIVE BACTERIA, URINE 1+ (A) NEGATIVE CRYSTALS, URINE NONE NONE CASTS, URINE NONE NONE /LPF COMMENT, URINE CULTURE CRITERIA NOT MET, NO CULTURE PERFORMED. Radiographic Imaging XR CHEST PA AND LATERAL Final Result IMPRESSION: There is subtle increased density posterior medially within the left lower chest which in the right clinical setting can be associated with a pneumonia. Appropriate clinical management and a follow-up chest radiograph to confirm complete resolution recommended. US ABDOMEN RUQ/LIVER/GB Final Result IMPRESSION: Ultrasound study of the right upper quadrant of the abdomen is grossly unremarkable. Procedures: Procedures Moderate Sedation Procedure: No ED Summary/MDM Patient is given K-Lyte Cl 50 mEq by mouth for potassium of 3.0. Her ultrasound of the gallbladder had no acute findings. Unfortunately there is evidence of early infiltrate in the lower lung on the left side. This may be causing her upper abdominal pain. She does state that her abdomen hurts when she coughs. She has had the upper respiratory complaints. Her COVID test is negative. At this time she is given a dose IV Rocephin. She is discharged home on Zithromax and Ceftin. Given a prescriptionfor albuterol inhaler. She is given a spacer here in emergency department and instructed in its use. She is to use the albuterol inhaler with the spacer 2 puffs every 4 hours while awake for the next5 days. She is given a work excuse for the next 2 days. She is to follow-up with cordell Steve in the office later this week or sometime next week for recheck. I did tell her it is important that she make sure her blood pressure is recheck at that time as well when she is feeling improved. She is to return immediately she develops shortness of breath or feels worse in any way. I spoke at length with the patient. She had no further questions at this time. She is discharged in good condition. Clinical Impression: 1. Pneumonia of left lower lobe due to infectious organism 2. Upper abdominal pain 3. Hypokalemia No follow-ups on file. New Prescriptions ALBUTEROL 108 (90 BASE) MCG/ACT AERO SOLN INHALER 2 puffs every 4 hours while awake for next 5 days. AZITHROMYCIN 250 MG TABLET Take 500 mg X1 then 250 mg PO Once Daily X 4 days CEFUROXIME 500 MG TABLET Take 1 tablet by mouth 2 times daily for 10 days. Discontinued Medications ALBUTEROL (2.5 MG/3ML) 0.083% INHALATION SOLUTION Take 3 mL by nebulization every 4 hours as neededfor Wheezing. Inhalation via nebulizer An After Visit Summary was printed and given to the patient with above information. . Bar Bland MD 02/02/23 09 [facility]08-22-2023 Emergency department Note* Julia Crum RN - 02/02/2023 6:55 AM EDT Repoty given to Esther OLSON [facility]09-16-2022 History of Present illness Narrative* Keli Puckett MA - 02/27/2022 10:15 AM EDT Hypertension: She is taking her medication as ordered. She Is checking BP at home. Her readings arein normal range. She exercises 0 times a week. She denies having headaches, admits to getting dizzy, denies getting chest pains, denies palpitations. Violet states if she bends over and stands up she gets dizzy, sometimes sees black dots. Depression: Her depression is improved. She is taking her medications as ordered. Symptoms present now : sadness no, tiredness yes, trouble focusing or concentrating no, unhappiness no, anger no, irritability no, frustration no, loss of interests in pleasurable or fun activities no, sleep problems (too little or too much) yes, fatigue yes, anxiety no, suicidal ideation no. Violet stated that she has issues falling asleep sometimes. This is the only concern she has about the medication PHQ-9: 6 * Cordell Steve APRN-JOSE - 02/27/2022 10:15 AM EDT History of Present Illness Violet Warner is a 31 y.o. female who comes in for evaluation of the following complaints: had concerns including Depression and Hypertension. Hypertension: She is taking her medication as ordered. She Is checking BP at home. Her readings arein normal range. She exercises 0 times a week. She denies having headaches, admits to getting dizzy, denies getting chest pains, denies palpitations. Violet states if she bends over and stands up she gets dizzy, sometimes sees black dots. Depression: Her depression is improved. She is taking her medications as ordered. Symptoms present now : sadness no, tiredness yes, trouble focusing or concentrating no, unhappiness no, anger no, irritability no, frustration no, loss of interests in pleasurable or fun activities no, sleep problems (too little or too much) yes, fatigue yes, anxiety no, suicidal ideation no. Violet stated that she has issues falling asleep sometimes. This is the only concern she has about the medication PHQ-9: 6 has a past medical history of Allergies, Asthma in adult, Depression, Essential hypertension, benign, and Hidradenitis suppurativa. She has no past medical history of Difficult intubation. Outpatient Medications Prior to Visit: albuterol (2.5 MG/3ML) 0.083% inhalation solution, Take 3 mL by nebulization every 4 hours as needed for Wheezing. Inhalation via nebulizer albuterol 108 (90 Base) MCG/ACT Aero Soln inhaler, Inhale 2 puffs every 4 hours as needed for Shortness of Breath or Wheezing. Benzoyl Peroxide 10 % Liquid, Take 1 Application by mouth daily. Wash in shower budesonide-formoterol 160-4.5 mcg/puff Aerosol inhaler, Inhale 2 puffs every 12 hours. buPROPion 150 MG tablet SR, Take 1 tablet by mouth every 12 hours. clindamycin 1 % Lotion lotion, Apply 1 Application topically Twice daily. To affected areas metFORMIN 500 MG tablet, Take 0.5 tablets by mouth daily. minocycline 100 MG capsule, Take 100 mg by mouth Twice daily. rifAMPin 300 MG capsule, Take 300 mg by mouth Twice daily. lisinopril-hydrochlorothiazide 20-25 MG per tablet, Take 1 tablet by mouth daily. cetirizine 10 MG tablet, Take 1 tablet by mouth daily. fluticasone 50 MCG/ACT Suspension nasal spray, 2 sprays by Nasal route 2 times daily. (Patient not taking: No sig reported) loratadine 10 MG tablet, Take 1 tablet by mouth daily. has No Known Allergies. Review of Systems Constitutional: Negative for appetite change, chills, diaphoresis, fatigue, fever and unexpected weight change. HENT: Negative for congestion, ear pain, hearing loss, rhinorrhea, sore throat and trouble swallowing. Eyes: Negative for pain, discharge, redness and visual disturbance. Respiratory: Negative for apnea, cough, choking, chest tightness, shortness of breath and wheezing. Cardiovascular: Negative for chest pain, palpitations and leg swelling. Gastrointestinal: Negative for abdominal distention, abdominal pain, anal bleeding, blood in stool,constipation, diarrhea and nausea. Endocrine: Negative. Genitourinary: Negative for decreased urine volume, difficulty urinating, dysuria, flank pain, frequency, hematuria and urgency. Musculoskeletal: Negative for arthralgias, back pain, gait problem, joint swelling, myalgias and neck pain. Skin: Negative. Allergic/Immunologic: Negative. Neurological: Positive for dizziness. Negative for tremors, syncope, weakness, light-headedness, numbness and headaches. Hematological: Negative. Psychiatric/Behavioral: Negative. Vitals: Blood pressure 122/80, pulse 119, temperature 97.5 F (36.4 C), resp. rate 16, height 1.6 m (5' 3"), weight 89.4 kg (197 lb 3.2 oz), SpO2 98 %, not currently . Physical Exam Vitals and nursing note reviewed. Constitutional: Appearance: Normal appearance. She is obese. Cardiovascular: Rate and Rhythm: Normal rate and regular rhythm. Heart sounds: Normal heart sounds. Pulmonary: Effort: Pulmonary effort is normal. Breath sounds: Normal breath sounds. Skin: General: Skin is warm and dry. Neurological: Mental Status: She is alert and oriented to person, place, and time. Psychiatric: Mood and Affect: Mood normal. Behavior: Behavior normal. Thought Content: Thought content normal. Judgment: Judgment normal. Neurological Exam Mental Status Alert. Oriented to person, place, and time. Laying BP: 118/78, HR: 112 Standing BP: 102/78, HR: 115 Assessment and Plan 1. Hypertension, unspecified type & 2. Postural dizziness BP improved significantly with the addition of hydrochlorothiazide 25 mg. C/o postural dizziness. Will decrease dose of the hydrochlorothiazide from 25 mg to 12.5 mg and she will continue to monitor at home and call if BP is <100/50 or >140/90 or if the dizziness does not resolve. - lisinopril-hydrochlorothiazide (Zestoretic) 20-12.5 MG per tablet; Take 1 tablet by mouth daily. Dispense: 30 tablet; Refill: 5 3. Edema of right upper extremity Unchanged with the addition of hydrochlorothiazide. Hx of axillary HS. Referral to lymphedema clinic for further management. - AMB REFERRAL TO PHYSICAL THERAPY 4. Other depression Improved, will continue current med. Will change from bid dosing to daily. - buPROPion 300 MG tablet XL; Take 1 tablet by mouth daily every morning. Dispense: 30 tablet; Refill: 5 5. Encounter for smoking cessation counseling She is down to a couple cigarettes a day. Will continue on the bupropion. Return to clinic in 6 months or sooner prn. [facility] of Present illness Narrative* Erika Smith Jr., DO - 01/05/2022 11:33 AM EDT Video Visit [facility] [address] [facility] [address] [facility] [id number] Via Real-time Synchronous Audiovisual [facility] 01/05/2022 Erika Smith Jr., DO Provider Location: [place] Patient Location Staff Psychiatrist: None Patient Location: Patient's Home Patient: Violet Warner Date of : 1990 (31 y.o. female) PCP: Physician No Video Visit Consent Statement: I discussed risks, benefits and alternatives of a real-time synchronous audiovisual consultation with the patient (and any accompanying persons) including the risks that the patient s personal health details and medical records will be discussed over real-time, synchronous, interactive video/audio/telecommunication technology, the visit will not be recorded without the express consent of both the provider and the patient, and that there are some limitations compared to [id number] evaluations. We elected to proceed. Violet Warner is a 31 y.o. female who presents for Patient is here today for evaluation of her hidradenitis suppurativa. She states that she is still having some flaring even on the oral antibiotics. She has been on topical clindamycin and benzoyl peroxide, which have done well. She does have a referral to Plastic Surgery for surgery of scarring underneath her axilla, but she is flaring more in her groin. Physical exam could not be done over Zoom today. ASSESSMENT AND PLAN Hidradenitis suppurativa, flared. I have increased the patient to metformin 500 mg 1 pill a day. I have recommended taking 1 pill a day. Will see the patient back in 3 months' time for reevaluation. I sent another referral to her general surgeon in [place] for referral and consultation of scarring of the axilla. Patient is understanding. We may consider Humira at next visit. Past Medical History: Diagnosis Date Abscess HS (hereditary spherocytosis) (HCC) HS (hereditary spherocytosis) (HCC) Hypertension No past medical history pertinent negatives. Family History Cancer-related family history is not on file. Review of Systems Constitutional: Malaise: No Skin: Other new or changing growths on skin: No Physical Examination Physical Exam The following areas were within normal limits except as noted otherwise in this note: Exposed: Oriented x 3/ alert; development/nourishment; mood/affect; scalp/hair; face; eyes/eyelids;lips; neck; digits/nails. Pertinent positive PE findings can be found below Assessment and Plan Erika Smith DO 01/05/2022 documented in this [id number] History of Present illness Narrative* Cecile Helen, MAJOR ACCOUNT REPRESENTATIVE - 01/01/2022 9:30 AM EDT Chief Complaint Patient presents with Establish [facility] History of Present Illness: Violet Warner is a 31 y.o. female who comes in to establish care as a new pt. Health Maintenance See Assessment/Plan summary below Active Problem List Shehas Obesity: body mass index of 30.0-34.9; Anemia; Axillary hidradenitis suppurativa; Edema; Elevated anti-tissue transglutaminase (tTG) IgA level; Eosinophilia; Essential hypertension; Hereditaryspherocytosis; Hydradenitis; Iron deficiency anemia; Nicotine dependence, cigarettes, uncomplicated; Prediabetes; Temporary high blood pressure; Vitamin D insufficiency; Deviated nasal septum; Nasal obstruction; and Chronic sinusitis on their problem list. Past Surgical History She has no past surgical history on file. Current Medications Current Outpatient Medications Medication Sig Dispense Refill albuterol (2.5 MG/3ML) 0.083% inhalation solution Take 3 mL by nebulization every 4 hours as neededfor Wheezing. Inhalation via nebulizer 90 mL 3 albuterol 108 (90 Base) MCG/ACT Aero Soln inhaler Inhale 2 puffs every 4 hours as needed for Wheezing. 18 g 1 Benzoyl Peroxide 10 % Liquid Take 1 Application by mouth daily. Wash in shower budesonide-formoterol 160-4.5 mcg/puff Aerosol inhaler Inhale 2 puffs every 12 hours. 6 g 1 cetirizine 10 MG tablet Take 1 tablet by mouth daily. 30 tablet 0 clindamycin 1 % Lotion lotion Apply 1 Application topically Twice daily. To affected areas ergocalciferol 1.25 MG (01016 UT) capsule Take 1 capsule by mouth once a week. (Patient not taking:No sig reported) 14 capsule 0 fluticasone 50 MCG/ACT Suspension nasal spray 2 sprays each nostril daily (Patient not taking: No sig reported) 1 Bottle 0 fluticasone 50 MCG/ACT Suspension nasal spray 2 sprays by Nasal route daily. (Patient not taking: No sig reported) 1 Bottle 0 fluticasone 50 MCG/ACT Suspension nasal spray 2 sprays by Nasal route 2 times daily. (Patient not taking: No sig reported) 18.2 mL 0 lisinopril 20 MG tablet Take 1 tablet by mouth daily. (Patient not taking: Reported on 10/01/2021) 90 tablet 0 lisinopril 20 MG tablet Take 1 tablet by mouth daily. 30 tablet 0 loratadine 10 MG tablet Take 1 tablet by mouth daily. 30 tablet 0 metFORMIN 500 MG tablet Take 0.5 tablets by mouth daily. metoprolol succinate 25 MG tablet XL Take 1 tablet by mouth daily. 30 tablet 0 minocycline 100 MG capsule Take 100 mg by mouth Twice daily. predniSONE 20 MG tablet Take 2 tablets by mouth daily. 10 tablet 0 rifAMPin 300 MG capsule Take 300 mg by mouth Twice daily. No current facility-administered medications for this visit. Allergies She has No Known Allergies. Family History family history includes Diabetes in her mother; Hypertension in her father; Stroke in her father. Social History reports that she has been smoking cigarettes. She started smoking about 12 years ago. She has neverused smokeless tobacco. She reports current alcohol use. She reports that she does not use drugs. Immunizations Immunization History Administered Date(s) Administered DTP Vaccine 03/21/1990, 05/27/1990, 09/23/1990, 02/24/1993 Hepatitis B Vaccine 02/07/2002, 06/18/2005 Hib Vaccine, HbOC 12/15/1991 MMR Vaccine 12/27/1990, 02/07/2002 OPV 03/21/1990, 05/27/1990, 02/24/1993 Tdap Vaccine 06/18/2005 She denies any other acute concerns. not currently ., There is no height or weight on file to calculate BMI. 1) Health Maintenance Current BMI: There is no height or weight on file to calculate BMI., Last BP: 168/110 Last Cholesterol: 3.6 (02/22/20) Last Pap Smear: never had one Self Breast Exam: none. Last Mammogram: never Last Bone Density: never Calcium and vitamin D Intake no Last Colonoscopy: never Immunizations: not covid vaccinated Hypertension: She is taking her medication as ordered. She Is checking BP at home. Her readings arenot in normal range. She exercises 0 times a week. She admits to having headaches accompanied by "black floaties", denies getting dizzy, denies getting chest pains, denies palpitations. She has been on her current bp meds over 1.5 years, and states they have not been effective. Asthma: She Is using his maintenance inhaler(s) as ordered. She is needing his rescue inhaler when exertion, or with high heat. , She Is not exercising regularly. Respiratory symptoms: Respiratory ROS: occassional wheezing and shortness of breath. She states she does have an appt to see a metals sales representative next month within [facility]. * Cordell Steve APRN-JOSE - 01/01/2022 9:30 AM EDT History of Present Illness Violet Warner is a 31 y.o. female who comes in for evaluation of the following complaints: had concerns including Establish Care, Hypertension, Asthma, Depression, and Nicotine Dependence. Here to establish care as a new pt. Health Maintenance See Assessment/Plan summary below has a past medical history of Allergies, Asthma in adult, Essential hypertension, benign, and Hidradenitis suppurativa. She has no past medical history of Difficult intubation. Outpatient Medications Prior to Visit: albuterol (2.5 MG/3ML) 0.083% inhalation solution, Take 3 mL by nebulization every 4 hours as needed for Wheezing. Inhalation via nebulizer Benzoyl Peroxide 10 % Liquid, Take 1 Application by mouth daily. Wash in shower clindamycin 1 % Lotion lotion, Apply 1 Application topically Twice daily. To affected areas lisinopril 20 MG tablet, Take 1 tablet by mouth daily. metFORMIN 500 MG tablet, Take 0.5 tablets by mouth daily. minocycline 100 MG capsule, Take 100 mg by mouth Twice daily. rifAMPin 300 MG capsule, Take 300 mg by mouth Twice daily. albuterol 108 (90 Base) MCG/ACT Aero Soln inhaler, Inhale 2 puffs every 4 hours as needed for Wheezing. budesonide-formoterol 160-4.5 mcg/puff Aerosol inhaler, Inhale 2 puffs every 12 hours. metoprolol succinate 25 MG tablet XL, Take 1 tablet by mouth daily. predniSONE 20 MG tablet, Take 2 tablets by mouth daily. (Patient taking differently: Take 40 mg by mouth as needed.) cetirizine 10 MG tablet, Take 1 tablet by mouth daily. fluticasone 50 MCG/ACT Suspension nasal spray, 2 sprays by Nasal route 2 times daily. (Patient not taking: No sig reported) loratadine 10 MG tablet, Take 1 tablet by mouth daily. ergocalciferol 1.25 MG (86673 UT) capsule, Take 1 capsule by mouth once a week. (Patient not taking: No sig reported) fluticasone 50 MCG/ACT Suspension nasal spray, 2 sprays each nostril daily (Patient not taking: No sig reported) fluticasone 50 MCG/ACT Suspension nasal spray, 2 sprays by Nasal route daily. (Patient not taking: No sig reported) lisinopril 20 MG tablet, Take 1 tablet by mouth daily. has No Known Allergies. Allergies She has No Known Allergies. Family History family history includes Diabetes in her mother; Hypertension in her father; Stroke in her father. Social History reports that she has been smoking cigarettes. She started smoking about 12 years ago. She has neverused smokeless tobacco. She reports current alcohol use. She reports that she does not use drugs. Immunizations Immunization History Administered Date(s) Administered DTP Vaccine 03/21/1990, 05/27/1990, 09/23/1990, 02/24/1993 Hepatitis B Vaccine 02/07/2002, 06/18/2005 Hib Vaccine, HbOC 12/15/1991 MMR Vaccine 12/27/1990, 02/07/2002 OPV 03/21/1990, 05/27/1990, 02/24/1993 Tdap Vaccine 06/18/2005 She denies any other acute concerns. 1) Health Maintenance Current BMI: Body mass index is 35.25 kg/m ., Last BP: 168/110 Last Cholesterol: 3.6 (02/22/20) Last Pap Smear: never had one Self Breast Exam: none. Last Mammogram: never Last Bone Density: never Calcium and vitamin D Intake no Last Colonoscopy: never Immunizations: not covid vaccinated Hypertension: She is taking her medication as ordered. She Is checking BP at home. Her readings arenot in normal range. She exercises 0 times a week. She admits to having headaches accompanied by "black floaties", denies getting dizzy, denies getting chest pains, denies palpitations. She has been on her current bp meds over 1.5 years, and states they have not been effective. Asthma: She Is using his maintenance inhaler(s) as ordered. She is needing his rescue inhaler when exertion, or with high heat. , She Is not exercising regularly. Respiratory symptoms: Respiratory ROS: occassional wheezing and shortness of breath. She states she does have an appt to see a metals sales representative next month within [facility]. Depression: Requesting evaluation for depression. Symptoms present now : sadness yes, tiredness yes, trouble focusing or concentrating yes, unhappiness yes, anger yes, irritability yes, frustration yes, loss of interests in pleasurable or fun activities yes, sleep problems (too little or too much) yes, fatigue yes, anxiety no, suicidal ideation no. PHQ-9=23. Review of Systems Constitutional: Negative for appetite change, chills, diaphoresis, fatigue, fever and unexpected weight change. HENT: Negative for congestion, ear pain, hearing loss, rhinorrhea, sore throat and trouble swallowing. Eyes: Negative for pain, discharge, redness and visual disturbance. Respiratory: Negative for apnea, cough, choking, chest tightness, shortness of breath and wheezing. Cardiovascular: Negative for chest pain, palpitations and leg swelling. Gastrointestinal: Negative for abdominal distention, abdominal pain, anal bleeding, blood in stool,constipation, diarrhea and nausea. Endocrine: Negative. Genitourinary: Negative for decreased urine volume, difficulty urinating, dysuria, flank pain, frequency, hematuria and urgency. Musculoskeletal: Negative for arthralgias, back pain, gait problem, joint swelling, myalgias and neck pain. Positive for right arm swelling that has been occurring for past 4 years Skin: Negative. Allergic/Immunologic: Negative. Neurological: Negative for dizziness, tremors, syncope, weakness, light- headedness, numbness and headaches. Hematological: Negative. Psychiatric/Behavioral: Positive for agitation, decreased concentration, dysphoric mood and sleep disturbance. Negative for behavioral problems, confusion, hallucinations, self-injury and suicidal ideas. The patient is not nervous/anxious and is not hyperactive. Vitals: Blood pressure (!) 168/110, pulse 83, temperature 97.2 F (36.2 C), temperature source Temporal, resp. rate 18, height 1.6 m (5' 3"), weight 90.3 kg (199 lb), last menstrual period 12/07/2021,SpO2 99 %, not currently . Physical Exam Vitals and nursing note reviewed. Constitutional: Appearance: Normal appearance. She is obese. Cardiovascular: Rate and Rhythm: Normal rate and regular rhythm. Heart sounds: Normal heart sounds. Pulmonary: Effort: Pulmonary effort is normal. Breath sounds: Normal breath sounds. Abdominal: General: Bowel sounds are normal. Palpations: Abdomen is soft. Musculoskeletal: General: Swelling (non-pitting to RUE without erythema or areas of warmth) present. Right lower leg: No edema. Left lower leg: No edema. Skin: General: Skin is warm and dry. Neurological: Mental Status: She is alert and oriented to person, place, and time. Psychiatric: Attention and Perception: Attention normal. Mood and Affect: Mood is depressed. Mood is not anxious. Affect is not flat or tearful. Speech: Speech normal. Behavior: Behavior normal. Behavior is not agitated or aggressive. Behavior is cooperative. Thought Content: Thought content normal. Cognition and Memory: Cognition normal. Judgment: Judgment normal. Comments: Mood Disorder Questionnaire with 10 marked yes under 1 and answers yes to 2. Neurological Exam Mental Status Alert. Oriented to person, place, and time. Speech is normal. Assessment and Plan 1. Uncontrolled hypertension Will add hydrochlorothiazide 25 mg daily to the lisinopril 20 mg and follow up in 1 month. - TSH W/FT4 REFLEX; Future - lisinopril-hydrochlorothiazide 20-25 MG per tablet; Take 1 tablet by mouth daily. Dispense: 30 tablet; Refill: 5 2. Prediabetes Will check results. - CBC, EDIF, PLATELET; Future - COMPREHENSIVE METABOLIC PANEL; Future - LIPID PANEL W CALCULATED LDL; Future - TSH W/FT4 REFLEX; Future - HEMOGLOBIN A1C; Future 3. Vitamin D deficiency Will check results. - VITAMIN D, (1,25 DIHYDROXY); Future 4. Moderate persistent asthma without complication Stable, will continue current med. - budesonide-formoterol 160-4.5 mcg/puff Aerosol inhaler; Inhale 2 puffs every 12 hours. Dispense: 10.2 g; Refill: 5 - albuterol 108 (90 Base) MCG/ACT Aero Soln inhaler; Inhale 2 puffs every 4 hours as needed for Shortness of Breath or Wheezing. Dispense: 18 g; Refill: 5 5. Other depression I discussed the pathophysiology of depression including the neurotransmitters how the different medications work on different synapses. We discussed differential diagnoses of major depressive disorder and bipolar depression. I will start her on bupropion. Discussed risks (side effects) and benefitsof medication & encouraged to read about medication and take meds as directed. Discussed that a mood stabilizer may need added should her mood worsens in anyway in which she willcontact the office immediately. - buPROPion 150 MG tablet SR; Take 1 tablet by mouth every 12 hours. Dispense: 60 tablet; Refill: 1 6. Edema of right upper extremity Hx of Hydradenitis which is managed by dermatology. Was told in the past the edema was due to this.Will place on hydrochlorothiazide and follow up on effectiveness. - lisinopril-hydrochlorothiazide 20-25 MG per tablet; Take 1 tablet by mouth daily. Dispense: 30 tablet; Refill: 5 7. Encounter for smoking cessation counseling It is very important that she quit smoking. There are various alternatives available to help with this difficult task, but first and foremost, she must make a firm commitment and decision to quit. The nature of nicotine addiction is discussed. The usefulness of behavioral therapy is discussed and suggested. The correct use, cost and side effects of nicotine replacement therapy such as gum or patches is discussed. Bupropion and its cost (sometimes not covered fully by insurance) and side effectsare reviewed. The quit rates are discussed. I recommend she not allow potential costs of treatment to deter her from using nicotine replacement therapy or bupropion, as the halfway economic and health benefits are obvious. Time spent counseling on smoking cessation: 3 minutes. - buPROPion 150 MG tablet SR; Take 1 tablet by mouth every 12 hours. Dispense: 60 tablet; Refill: 1 Return to clinic in 1 month or sooner prn. Return to clinic in 1 month or sooner prn. documented in this [facility]07-04-2022 Physician Emergency department Note* Garo Adams MD - 12/15/2021 11:13 PM EDT DEPARTMENT OF EMERGENCY MEDICINE CHIEF COMPLAINT Cough and Wheezing (Cough and wheezing for about 4 days. ) KOSTAS Warner is a 31 y.o. female who presents with an asthma exacerbation. She denies any infectious symptoms. Wheezing is mild to moderate. She does have a nonproductive cough. She states she ran out of Symbicort. She has albuterol solution for her nebulizer, but ran out of her albuterol inhaler. No fevers or chills. No vomiting. Patient also states that she is out of her lisinopril and metoprolol. She states she has an appointment with her provider later this month. REVIEW OF SYSTEMS Review of Systems See history of present illness. PAST MEDICAL HISTORY Past Medical History: Diagnosis Date Allergies Asthma in adult Essential hypertension, benign Hidradenitis suppurativa SURGICAL HISTORY No past surgical history on file. CURRENT MEDICATIONS Current Facility-Administered Medications Medication Dose Route Frequency Provider Last Rate Last Admin ipratropium-albuterol (DUONEB) 0.5-2.5 (3) MG/3ML nebulizer solution 3 mL 3 mL Nebulization Once Garo Adams MD predniSONE (DELTASONE) tablet 40 mg 40 mg Oral Once Garo Adams MD Current Outpatient Medications Medication Sig Dispense Refill albuterol 108 (90 Base) MCG/ACT Aero Soln inhaler Inhale 2 puffs every 4 hours as needed for Wheezing. 18 g 1 budesonide-formoterol 160-4.5 mcg/puff Aerosol inhaler Inhale 2 puffs every 12 hours. 6 g 1 albuterol (2.5 MG/3ML) 0.083% inhalation solution Take 3 mL by nebulization every 4 hours as neededfor Wheezing. Inhalation via nebulizer 90 mL 3 Benzoyl Peroxide 10 % Liquid Take 1 Application by mouth daily. Wash in shower cetirizine 10 MG tablet Take 1 tablet by mouth daily. 30 tablet 0 clindamycin 1 % Lotion lotion Apply 1 Application topically Twice daily. To affected areas ergocalciferol 1.25 MG (24080 UT) capsule Take 1 capsule by mouth once a week. (Patient not taking:No sig reported) 14 capsule 0 fluticasone 50 MCG/ACT Suspension nasal spray 2 sprays each nostril daily (Patient not taking: No sig reported) 1 Bottle 0 fluticasone 50 MCG/ACT Suspension nasal spray 2 sprays by Nasal route daily. (Patient not taking: No sig reported) 1 Bottle 0 fluticasone 50 MCG/ACT Suspension nasal spray 2 sprays by Nasal route 2 times daily. (Patient not taking: No sig reported) 18.2 mL 0 lisinopril 20 MG tablet Take 1 tablet by mouth daily. (Patient not taking: Reported on 10/01/2021) 90 tablet 0 loratadine 10 MG tablet Take 1 tablet by mouth daily. 30 tablet 0 metFORMIN 500 MG tablet Take 0.5 tablets by mouth daily. metoprolol succinate 25 MG tablet XL Take 1 tablet by mouth daily. (Patient taking differently: Take 25 mg by mouth daily. Pt states still taking 10/01/21) 30 tablet 11 minocycline 100 MG capsule Take 100 mg by mouth Twice daily. predniSONE 20 MG tablet Take 2 tablets by mouth daily. 10 tablet 0 rifAMPin 300 MG capsule Take 300 mg by mouth Twice daily. ALLERGIES No Known Allergies FAMILY HISTORY Family History Problem Relation Age of Onset Diabetes Mother Stroke Father Hypertension Father SOCIAL HISTORY Social History Socioeconomic History Marital status: Single Spouse name: Not on file Number of children: Not on file Years of education: Not on file Highest education level: Not on file Occupational History Not on file Tobacco Use Smoking status: Current Some Day Smoker Types: Cigarettes Start date: 04/27/2009 Smokeless tobacco: Never Used Tobacco comment: 1 pack every week and a half Vaping Use Vaping Use: Former Substances: Nicotine Substance and Sexual Activity Alcohol use: Yes Comment: 1-2 x year Drug use: Never Sexual activity: Yes Other Topics Concern Service Not Asked Blood Transfusions Not Asked Caffeine Concern Not Asked Occupational Exposure Not Asked Hobby Hazards Not Asked Sleep Concern Not Asked Stress Concern Not Asked Weight Concern Not Asked Special Diet Not Asked Back Care Not Asked Exercise Not Asked Bike Helmet Not Asked Seat Belt Not Asked Domestic Violence No Social History Narrative Not on file Social Determinants of Health Financial Resource Strain: Not on file Food Insecurity: Not on file Transportation Needs: Not on file Physical Activity: Not on file Stress: Not on file Social Connections: Not on file Intimate Partner Violence: Not on file Housing Stability: Not on file PHYSICAL EXAM BP 161/85 Pulse 94 Temp 98.1 F (36.7 C) (Oral) Resp 16 Ht 1.6 m (5' 3") SpO2 98% BMI 35.39 kg/m Smoking Status Current Some Day Smoker Physical Exam The patient is well-developed, well-nourished, and in no acute distress. Head is atraumatic and normocephalic. Pupils are equal and reactive. Face is symmetric. Mucous membranes are moist. Neck is supple. Heart is regular rate and rhythm. Lungs have mild wheezing throughout. Patient is able to speak complete sentences without difficulty. Skin is warm and dry. Extremities are warm and well perfused and without acute deformity. Neurologically, the patient is awake, alert, and without acute deficit. Psychiatrically, the patient is calm and cooperative. ED COURSE & MEDICAL DECISION MAKING Patient does appear to have orders for her metoprolol and lisinopril, but the orders are listed as "pended." I will go ahead and give her a 1 month supply of those medications and not cancel her other orders as it appears those have quite a few refills on them. They may be set up pending release when she has her appointment with her provider later this month. Patient will be given prednisone and started on a course of prednisone. I have refilled her Symbicort and an albuterol inhaler. Garo Adams MD 12/15/21 2147 [facility]07-04-2022 Emergency department Note* Garo Adams MD - 12/15/2021 11:13 PM EDT DEPARTMENT OF EMERGENCY MEDICINE CHIEF COMPLAINT Cough and Wheezing (Cough and wheezing for about 4 days. ) KOSTAS Warner is a 31 y.o. female who presents with an asthma exacerbation. She denies any infectious symptoms. Wheezing is mild to moderate. She does have a nonproductive cough. She states she ran out of Symbicort. She has albuterol solution for her nebulizer, but ran out of her albuterol inhaler. No fevers or chills. No vomiting. Patient also states that she is out of her lisinopril and metoprolol. She states she has an appointment with her provider later this month. REVIEW OF SYSTEMS Review of Systems See history of present illness. PAST MEDICAL HISTORY Past Medical History: Diagnosis Date Allergies Asthma in adult Essential hypertension, benign Hidradenitis suppurativa SURGICAL HISTORY No past surgical history on file. CURRENT MEDICATIONS Current Facility-Administered Medications Medication Dose Route Frequency Provider Last Rate Last Admin ipratropium-albuterol (DUONEB) 0.5-2.5 (3) MG/3ML nebulizer solution 3 mL 3 mL Nebulization Once Garo Adams MD predniSONE (DELTASONE) tablet 40 mg 40 mg Oral Once Garo Adams MD Current Outpatient Medications Medication Sig Dispense Refill albuterol 108 (90 Base) MCG/ACT Aero Soln inhaler Inhale 2 puffs every 4 hours as needed for Wheezing. 18 g 1 budesonide-formoterol 160-4.5 mcg/puff Aerosol inhaler Inhale 2 puffs every 12 hours. 6 g 1 albuterol (2.5 MG/3ML) 0.083% inhalation solution Take 3 mL by nebulization every 4 hours as neededfor Wheezing. Inhalation via nebulizer 90 mL 3 Benzoyl Peroxide 10 % Liquid Take 1 Application by mouth daily. Wash in shower cetirizine 10 MG tablet Take 1 tablet by mouth daily. 30 tablet 0 clindamycin 1 % Lotion lotion Apply 1 Application topically Twice daily. To affected areas ergocalciferol 1.25 MG (04319 UT) capsule Take 1 capsule by mouth once a week. (Patient not taking:No sig reported) 14 capsule 0 fluticasone 50 MCG/ACT Suspension nasal spray 2 sprays each nostril daily (Patient not taking: No sig reported) 1 Bottle 0 fluticasone 50 MCG/ACT Suspension nasal spray 2 sprays by Nasal route daily. (Patient not taking: No sig reported) 1 Bottle 0 fluticasone 50 MCG/ACT Suspension nasal spray 2 sprays by Nasal route 2 times daily. (Patient not taking: No sig reported) 18.2 mL 0 lisinopril 20 MG tablet Take 1 tablet by mouth daily. (Patient not taking: Reported on 10/01/2021) 90 tablet 0 loratadine 10 MG tablet Take 1 tablet by mouth daily. 30 tablet 0 metFORMIN 500 MG tablet Take 0.5 tablets by mouth daily. metoprolol succinate 25 MG tablet XL Take 1 tablet by mouth daily. (Patient taking differently: Take 25 mg by mouth daily. Pt states still taking 10/01/21) 30 tablet 11 minocycline 100 MG capsule Take 100 mg by mouth Twice daily. predniSONE 20 MG tablet Take 2 tablets by mouth daily. 10 tablet 0 rifAMPin 300 MG capsule Take 300 mg by mouth Twice daily. ALLERGIES No Known Allergies FAMILY HISTORY Family History Problem Relation Age of Onset Diabetes Mother Stroke Father Hypertension Father SOCIAL HISTORY Social History Socioeconomic History Marital status: Single Spouse name: Not on file Number of children: Not on file Years of education: Not on file Highest education level: Not on file Occupational History Not on file Tobacco Use Smoking status: Current Some Day Smoker Types: Cigarettes Start date: 04/27/2009 Smokeless tobacco: Never Used Tobacco comment: 1 pack every week and a half Vaping Use Vaping Use: Former Substances: Nicotine Substance and Sexual Activity Alcohol use: Yes Comment: 1-2 x year Drug use: Never Sexual activity: Yes Other Topics Concern Service Not Asked Blood Transfusions Not Asked Caffeine Concern Not Asked Occupational Exposure Not Asked Hobby Hazards Not Asked Sleep Concern Not Asked Stress Concern Not Asked Weight Concern Not Asked Special Diet Not Asked Back Care Not Asked Exercise Not Asked Bike Helmet Not Asked Seat Belt Not Asked Domestic Violence No Social History Narrative Not on file Social Determinants of Health Financial Resource Strain: Not on file Food Insecurity: Not on file Transportation Needs: Not on file Physical Activity: Not on file Stress: Not on file Social Connections: Not on file Intimate Partner Violence: Not on file Housing Stability: Not on file PHYSICAL EXAM BP 161/85 Pulse 94 Temp 98.1 F (36.7 C) (Oral) Resp 16 Ht 1.6 m (5' 3") SpO2 98% BMI 35.39 kg/m Smoking Status Current Some Day Smoker Physical Exam The patient is well-developed, well-nourished, and in no acute distress. Head is atraumatic and normocephalic. Pupils are equal and reactive. Face is symmetric. Mucous membranes are moist. Neck is supple. Heart is regular rate and rhythm. Lungs have mild wheezing throughout. Patient is able to speak complete sentences without difficulty. Skin is warm and dry. Extremities are warm and well perfused and without acute deformity. Neurologically, the patient is awake, alert, and without acute deficit. Psychiatrically, the patient is calm and cooperative. ED COURSE & MEDICAL DECISION MAKING Patient does appear to have orders for her metoprolol and lisinopril, but the orders are listed as "pended." I will go ahead and give her a 1 month supply of those medications and not cancel her other orders as it appears those have quite a few refills on them. They may be set up pending release when she has her appointment with her provider later this month. Patient will be given prednisone and started on a course of prednisone. I have refilled her Symbicort and an albuterol inhaler. Garo Adams MD 12/15/21 [id number] documented in this [facility]04-25-2022 History of Present illness Narrative* Erika Smith Jr., DO - 10/06/2021 12:38 PM EDT Video Visit [facility] [address] [facility] [address] [facility] [id number] Via Real-time Synchronous Audiovisual [facility] 10/06/2021 Erika Smith Jr., DO Provider Location: [place] Patient Location Staff Psychiatrist: None Patient Location: Patient's Home Patient: Violet Warner Date of : 1990 (31 y.o. female) PCP: Physician No Video Visit Consent Statement: I discussed risks, benefits and alternatives of a real-time synchronous audiovisual consultation with the patient (and any accompanying persons) including the risks that the patient s personal health details and medical records will be discussed over real-time, synchronous, interactive video/audio/telecommunication technology, the visit will not be recorded without the express consent of both the provider and the patient, and that there are some limitations compared to [id number] evaluations. We elected to proceed. Violet Warner is a 31 y.o. female who presents for Patient is here today for evaluation of her hidradenitis suppurativa. She states that she is still having some flaring even on the oral antibiotics. She has been on topical clindamycin and benzoyl peroxide, which have done well. She does have a referral to Plastic Surgery for surgery of scarring underneath her axilla, but she is flaring more in her groin. Physical exam could not be done over Zoom today. ASSESSMENT AND PLAN Hidradenitis suppurativa, flared. I have started the patient on metformin 500 mg 1 pill a day. I have recommended taking 1/2 pill a day. Will see the patient back in 3 months' time for reevaluation. I sent another referral to her plastic surgeon in [place] for referral and consultation of scarring of the axilla. Patient is understanding. We may consider Humira at that visit. Past Medical History: Diagnosis Date Abscess HS (hereditary spherocytosis) (HCC) HS (hereditary spherocytosis) (HCC) Hypertension No past medical history pertinent negatives. Family History Cancer-related family history is not on file. Review of Systems Constitutional: Malaise: No Skin: Other new or changing growths on skin: No Physical Examination Physical Exam The following areas were within normal limits except as noted otherwise in this note: Exposed: Oriented x 3/ alert; development/nourishment; mood/affect; scalp/hair; face; eyes/eyelids;lips; neck; digits/nails. Pertinent positive PE findings can be found below Assessment and Plan Erika Smith DO 10/07/2021 documented in this [id number] History of Present illness Narrative* Akilah Gould LPN - 10/06/2021 12:[address] Fernandez office to follow up on referral placed on 07/08/21. States misplaced withinsystem and best to fax over information. Re-faxed over all information. Will reach out to patient to schedule. documented in this [id number] History of Present illness Narrative* Kaitlyn Cosme, [employer] - 10/01/2021 5:15 PM EDT HPI Violet Warner female 1990 presents to the [facility] with Chief Complaint Patient presents with Breathing Problem Pt reports she has a h/o asthma and has been without her inhalers for 2 months. States she has beenusing her girlfriends inhalers and left over prednisone but past few days it has been increasingly hard to breathe Patient presents with asthma exacerbation. Increase wheezing, shortness of breath, cough started about a week ago. She has been out of her inhalers. Using a friend's inhaler and took 1-1/2 tabs of prednisone. States this did help somewhat, however needs refills. Denies fever, chills, NVD. History No Known Allergies Current Outpatient Medications Medication Sig albuterol (2.5 MG/3ML) 0.083% inhalation solution Take 3 mL by nebulization every 4 hours as neededfor Wheezing. Inhalation via nebulizer albuterol 108 (90 Base) MCG/ACT Aero Soln inhaler Inhale 2 puffs every 4 hours as needed for Wheezing. budesonide-formoterol 160-4.5 mcg/puff Aerosol inhaler Inhale 2 puffs every 12 hours. predniSONE 10 MG (21) Tab Therapy Pack Take 6 pills on day 1, then 5, 4, 3, 2 and 1 each day sequentially cetirizine 10 MG tablet Take 1 tablet by mouth daily. ergocalciferol 1.25 MG (08245 UT) capsule Take 1 capsule by mouth once a week. (Patient not taking:No sig reported) fluticasone 50 MCG/ACT Suspension nasal spray 2 sprays each nostril daily (Patient not taking: No sig reported) fluticasone 50 MCG/ACT Suspension nasal spray 2 sprays by Nasal route daily. (Patient not taking: No sig reported) fluticasone 50 MCG/ACT Suspension nasal spray 2 sprays by Nasal route 2 times daily. (Patient not taking: No sig reported) lisinopril 20 MG tablet Take 1 tablet by mouth daily. (Patient not taking: Reported on 10/01/2021) loratadine 10 MG tablet Take 1 tablet by mouth daily. metoprolol succinate 25 MG tablet XL Take 1 tablet by mouth daily. (Patient taking differently: Take 25 mg by mouth daily. Pt states still taking 10/01/21) minocycline 100 MG capsule rifAMPin 300 MG capsule Family History Problem Relation Age of Onset Diabetes Mother Stroke Father Past Medical History: Diagnosis Date Allergies Asthma in adult Essential hypertension, benign Hidradenitis suppurativa No past surgical history on file. Social History Socioeconomic History Marital status: Single Spouse name: Not on file Number of children: Not on file Years of education: Not on file Highest education level: Not on file Occupational History Not on file Tobacco Use Smoking status: Current Some Day Smoker Types: Cigarettes Start date: 04/27/2009 Smokeless tobacco: Never Used Tobacco comment: 1 pack every week and a half Vaping Use Vaping Use: Former Substances: Nicotine Substance and Sexual Activity Alcohol use: No Drug use: Not Currently Sexual activity: Yes Other Topics Concern Service Not Asked Blood Transfusions Not Asked Caffeine Concern Not Asked Occupational Exposure Not Asked Hobby Hazards Not Asked Sleep Concern Not Asked Stress Concern Not Asked Weight Concern Not Asked Special Diet Not Asked Back Care Not Asked Exercise Not Asked Bike Helmet Not Asked Seat Belt Not Asked Domestic Violence No Social History Narrative Not on file Social Determinants of Health Financial Resource Strain: Not on file Food Insecurity: Not on file Transportation Needs: Not on file Physical Activity: Not on file Stress: Not on file Social Connections: Not on file Intimate Partner Violence: Not on file Housing Stability: Not on file ROS Review of Systems 8 systems reviewed with patient, negative unless specifically mentioned in history of present illness PHYSICAL EXAM Visit Vitals BP (!) 173/120 (BP Location: Right arm, BP Position: Sitting) Pulse 95 Temp 99.1 F (37.3 C) (Temporal) Resp 22 Ht 1.6 m (5' 3") Wt 90.7 kg (200 lb) SpO2 99% BMI 35.43 kg/m Physical Exam Vitals and nursing note reviewed. Constitutional: General: She is not in acute distress. Appearance: Normal appearance. She is well-developed. She is not ill-appearing or diaphoretic. HENT: Head: Normocephalic. Nose: Comments: masked Cardiovascular: Rate and Rhythm: Normal rate and regular rhythm. Heart sounds: Normal heart sounds. Pulmonary: Effort: Pulmonary effort is normal. Tachypnea present. No respiratory distress. Breath sounds: Wheezing (exp throughout ) present. Abdominal: General: There is no distension. Musculoskeletal: Cervical back: Neck supple. Skin: General: Skin is warm and dry. Capillary Refill: Capillary refill takes less than 2 seconds. Neurological: General: No focal deficit present. Mental Status: She is alert and oriented to person, place, and time. Psychiatric: Mood and Affect: Mood normal. Behavior: Behavior normal. RESULTS No results found for this or any previous visit (from the past 1 hour(s)). ASSESSMENT/PLAN 1. Asthma, unspecified asthma severity, unspecified whether complicated, unspecified whether persistent Orders Placed This Encounter AMB REFERRAL TO FAMILY PRACTICE rifAMPin 300 MG capsule minocycline 100 MG capsule albuterol (2.5 MG/3ML) 0.083% inhalation solution albuterol 108 (90 Base) MCG/ACT Aero Soln inhaler predniSONE 10 MG (21) Tab Therapy Pack budesonide-formoterol 160-4.5 mcg/puff Aerosol inhaler Patient declined neb treatment in office. Refilled albuterol and symbicort inhaler. Oral steroid pack. Establish with PCP for follow up and continuing care. If symptoms worsen patient was advised to follow up in our office, primary care provider or the Emergency Dept. Benefits, Risks, Contraindications, and Complications of recommended treatments were explained. The patient understands and agrees to proceed with plan. GIO Low 10/01/2021 documented in this [facility]01-25-2022 History of Present illness Narrative* Erika Smith Jr., DO - 07/08/2021 5:32 PM EST Violet Warner is a 31 y.o. female who presents for evaluation of longstanding hidradenitis suppurativa (HS). She has had this disease for >10 years. She was last seen in office over a year ago and was started on rifampin 300 mg BID, minocycline 100 mg BID , topical clindamycin and BPO 10% wash. Patient reports improvement in condition while on therapy, however HS flared with cessation of medications. She has difficulty finding transportation to [place] from [place] which was a barrier to follow up appointments in the past. She continues to have painful, nodules and scars in bilateralaxillae and groin. It affects her mood and sexual interactions. She declined starting biologic at this time and would prefer other treatments. She is open to surgical intervention for scarring. Review of Systems Constitutional: Malaise: No Skin: Other new or changing growths on skin: No; scarring and draining sinus tracts in armpits and groin Past Medical History: Diagnosis Date Abscess HS (hereditary spherocytosis) (HCC) HS (hereditary spherocytosis) (HCC) Hypertension No past medical history pertinent negatives. family history includes Diabetes in her mother; Hypertension in her mother; Stroke in her father. Allergies and Meds: Reviewed in electronic medical record Physical Exam The following areas were within normal limits except as noted otherwise in this note: Full body: Oriented x 3/ alert; development/nourishment; mood/affect; scalp/hair; face; eyes/eyelids; lips; neck; digits/nails; right arm; left arm; chest; abdomen; back; right leg; left leg. Diagnoses and all orders for this visit: Assessment and Plan 1. *Hidradenitis suppurativa - (chronic illness with exacerbation, progression, poorly controled orSE of tx [M]). Etiology explained. Treatment options with emphasis on risk/benefits discussed. Correlation with smoking, hormones and weight discussed. Appropriate behavior modification emphasized. Recommend Humira, patient declined. Will continue combination oral and topical antibiotic therapy as listed above. Patient will benefit with surgical consultation once optimized medically, will place referral. Discussed possible side effects of rifampin including diarrhea, medication interactions and staining bodily fluids red. Pertinent PE: Erythematous nodules, draining sinus tracts/fistulas, comedones, and severe adhesionsand scars in the bilateral groin, axillae and gluteal cleft F/u in 3 months for Telehealth Erika Smith DO documented in this [id number] History of Present illness Narrative* RACHEL Wesley - 06/09/2021 4:30 PM EST URGENT CARE eNCOUnter CHIEF COMPLAINT Cough (Has been wheezing for a couple of days which makes her cough, her inhaler is not helping her. Patient not vaccinated) and Wheezing HPI Violet Warner is a 31 y.o. female who presents today for Complaining of cough, wheezing for the past couple days. Patient states her inhaler is not helping. Patient has not been vaccinated for COVID. Patient has a history of asthma. REVIEW OF SYSTEMS Review of Systems As documented in HPI. A thorough 12 point review of systems was evaluated including Constitutional and general appearance, Head, Face, Ears, Eyes, Nose, Throat, Cardiovascular, Pulmonary, GI, , Skin, and Psychiatric andwas found to be negative without symptoms or signs consistent with acute pathology with the exception of that specifically documented in the HPI section of this documentation. PAST MEDICAL HISTORY Past Medical History: Diagnosis Date Allergies Asthma in adult Essential hypertension, benign Hidradenitis suppurativa SURGICAL HISTORY No past surgical history on file. CURRENT MEDICATIONS Current Outpatient Medications Medication Sig Dispense Refill albuterol 108 (90 Base) MCG/ACT Aero Soln inhaler Inhale 1 puff every 6 hours as needed for Wheezing. 18 g 1 budesonide-formoterol 160-4.5 mcg/puff Aerosol inhaler Inhale 2 puffs every 12 hours. 6 g 1 lisinopril 20 MG tablet Take 1 tablet by mouth daily. 90 tablet 0 metoprolol succinate 25 MG tablet XL Take 1 tablet by mouth daily. 30 tablet 11 albuterol (2.5 MG/3ML) 0.083% inhalation solution Take 3 mL by nebulization every 4 hours as neededfor Wheezing. Inhalation via nebulizer 90 mL 0 azithromycin 250 MG tablet Take 500 mg X1 then 250 mg PO Once Daily X 4 days 6 tablet 0 cetirizine 10 MG tablet Take 1 tablet by mouth daily. 30 tablet 0 ergocalciferol 1.25 MG (73333 UT) capsule Take 1 capsule by mouth once a week. (Patient not taking:Reported on 01/08/2021) 14 capsule 0 fluticasone 50 MCG/ACT Suspension nasal spray 2 sprays each nostril daily (Patient not taking: Reported on 01/08/2021) 1 Bottle 0 fluticasone 50 MCG/ACT Suspension nasal spray 2 sprays by Nasal route daily. (Patient not taking: Reported on 01/08/2021) 1 Bottle 0 fluticasone 50 MCG/ACT Suspension nasal spray 2 sprays by Nasal route 2 times daily. (Patient not taking: Reported on 01/08/2021) 18.2 mL 0 loratadine 10 MG tablet Take 1 tablet by mouth daily. 30 tablet 0 predniSONE 10 MG (21) Tab Therapy Pack Take 6 pills on day 1, then 5, 4, 3, 2 and 1 each day sequentially 21 Each 0 No current facility-administered medications for this visit. ALLERGIES No Known Allergies FAMILY HISTORY Family History Problem Relation Age of Onset Diabetes Mother Stroke Father SOCIAL HISTORY Social History Socioeconomic History Marital status: Single Spouse name: Not on file Number of children: Not on file Years of education: Not on file Highest education level: Not on file Occupational History Not on file Tobacco Use Smoking status: Former Smoker Types: Cigarettes Start date: 04/27/2009 Smokeless tobacco: Never Used Tobacco comment: 1 pack every week and a half Vaping Use Vaping Use: Some days Substances: Nicotine Substance and Sexual Activity Alcohol use: No Drug use: Not Currently Sexual activity: Yes Other Topics Concern Service Not Asked Blood Transfusions Not Asked Caffeine Concern Not Asked Occupational Exposure Not Asked Hobby Hazards Not Asked Sleep Concern Not Asked Stress Concern Not Asked Weight Concern Not Asked Special Diet Not Asked Back Care Not Asked Exercise Not Asked Bike Helmet Not Asked Seat Belt Not Asked Domestic Violence No Social History Narrative Not on file Social Determinants of Health Financial Resource Strain: Not on file Food Insecurity: Not on file Transportation Needs: Not on file Physical Activity: Not on file Stress: Not on file Social Connections: Not on file Intimate Partner Violence: Not on file Housing Stability: Not on file PHYSICAL EXAM BP (!) 171/108 (BP Location: Right arm, BP Position: Sitting) Pulse 94 Temp 98.8 F (37.1 C) (Oral) Resp 18 Ht 1.6 m (5' 3") Wt 88 kg (193 lb 14.4 oz) SpO2 97% BMI 34.35 kg/m Smoking Status Former Smoker Physical Exam General exam: Patient is well-developed and well-nourished in no distress. Patient does not appear acutely ill or toxic. Eye exam: Lids and conjunctivae are normal ENT exam: head and facial exam is normal. The neck is supple without meningeal signs. No significant adenopathy. Pulmonary exam: No respiratory distress. Respiratory rate is normal. No stridor. Breath sounds are equal bilaterally. + wheezing throughout Cardiac exam: The cardiac rate and rhythm are normal. No significant murmurs, rubs, or gallops. Peripheral pulses are normal. Skin and soft tissue: Skin is warm and dry, without significant abnormality. Good color. Musculoskeletal exam: No evidence of DVT. There is no peripheral edema. Musculoskeletal exam of thelower extremities is normal without significant focal tenderness or spasm. Neurologic: Patient is alert and appropriate. Normal speech. Normal symmetric strength and tone in all extremities. Psychiatric: Normal adult with appropriate demeanor and interpersonal interaction. Is oriented to person, place, and time. Diagnosis, Assessment & Plan: Violet was seen today for cough and wheezing. Diagnoses and all orders for this visit: Cough - SARS-COV-2 RAPID; Future - SARS-COV-2 RAPID Other orders - predniSONE 10 MG (21) Tab Therapy Pack; Take 6 pills on day 1, then 5, 4, 3, 2 and 1 each day sequentially - albuterol (2.5 MG/3ML) 0.083% inhalation solution; Take 3 mL by nebulization every 4 hours as needed for Wheezing. Inhalation via nebulizer - azithromycin 250 MG tablet; Take 500 mg X1 then 250 mg PO Once Daily X 4 days -covid negative -Patient started on prednisone -albuterol nebulizer solution prescribed. --Follow up with PCP. Advised to return or go to ER immediately if any new or worsening symptoms. -Benefits, risks, contraindications, & complications of recommended treatments were explained. The patient understands & agrees to proceed with plan. RACHEL Wesley 06/09/2021 documented in this [facility]12-27-2021 Instructions* Patient Instructions* RACHEL Wesley - 06/09/2021 4:30 PM EST Images from the original note were not included. Cough: Care Instructions Your Care Instructions A cough is your body's response to something that bothers your throat or airways. Many things can cause a cough. You might cough because of a cold or the flu, bronchitis, or asthma. Smoking, postnasal drip, allergies, and stomach acid that backs up into your throat also can cause coughs. A cough is a symptom, not a disease. Most coughs stop when the cause, such as a cold, goes away. You can take a few steps at home to cough less and feel better. Follow-up care is a cespedes part of your treatment and safety. Be sure to make and go to all appointments, and call your doctor if you are having problems. It's also a good idea to know your test resultsand keep a list of the medicines you take. How can you care for yourself at home? Drink lots of water and other fluids. This helps thin the mucus and soothes a dry or sore throat. Honey or lemon juice in hot water or tea may ease a dry cough. Take cough medicine as directed by your doctor. Prop up your head on pillows to help you breathe and ease a dry cough. Try cough drops to soothe a dry or sore throat. Cough drops don't stop a cough. Medicine-flavored cough drops are no better than candy-flavored drops or hard candy. Do not smoke. Avoid secondhand smoke. If you need help quitting, talk to your doctor about stop-smoking programs and medicines. These can increase your chances of quitting for good. When should you call for help? Call 911 anytime you think you may need emergency care. For example, call if: You have severe trouble breathing. Call your doctor now or seek immediate medical care if: You cough up blood. You have new or worse trouble breathing. You have a new or higher fever. You have a new rash. Watch closely for changes in your health, and be sure to contact your doctor if: You cough more deeply or more often, especially if you notice more mucus or a change in the color of your mucus. You have new symptoms, such as a sore throat, an earache, or sinus pain. You do not get better as expected. Where can you learn more? Go to http://[email or web address]. Enter D279 in the search box to learn more about 'Cough: Care Instructions.' Interested in seeing a video go to [email or web address] to see all video content. Current as of: December 17, 2020 Content Version: 13.1 [employer]. Care instructions adapted under license by your healthcare professional. If you have questions about a medical condition or this instruction, always ask your healthcare professional. [employer] disclaims any warranty or liability for your use of this information. Wheezing or Bronchoconstriction: Care Instructions Your Care Instructions Wheezing is a whistling noise made during breathing. It occurs when the small airways, or bronchialtubes, that lead to your lungs swell or contract (spasm) and become narrow. This narrowing is called bronchoconstriction. When your airways constrict, it is hard for air to pass through and this makes it hard for you to breathe. Wheezing and bronchoconstriction can be caused by many problems, including: An infection such as the flu or a cold. Allergies such as hay fever. Diseases such as asthma or chronic obstructive pulmonary disease. Smoking. Treatment for your wheezing depends on what is causing the problem. Your wheezing may get better without treatment. But you may need to pay attention to things that cause your wheezing and avoid them. Or you may need medicine to help treat the wheezing and to reduce the swelling or to relieve spasms in your lungs. Follow-up care is a cespedes part of your treatment and safety. Be sure to make and go to all appointments, and call your doctor if you are having problems. It is also a good idea to know your test results and keep a list of the medicines you take. How can you care for yourself at home? Take your medicine exactly as prescribed. Call your doctor if you think you are having a problem with your medicine. You will get more details on the specific medicine your doctor prescribes. If your doctor prescribed antibiotics, take them as directed. Do not stop taking them just because you feel better. You need to take the full course of antibiotics. Breathe moist air from a humidifier, hot shower, or sink filled with hot water. This may help ease your symptoms and make it easier for you to breathe. If you have congestion in your nose and throat, drinking plenty of fluids, especially hot fluids, may help relieve your symptoms. If you have kidney, heart, or liver disease and have to limit fluids,talk with your doctor before you increase the amount of fluids you drink. If you have mucus in your airways, it may help to breathe deeply and cough. Do not smoke or allow others to smoke around you. Smoking can make your wheezing worse. If you needhelp quitting, talk to your doctor about stop-smoking programs and medicines. These can increase your chances of quitting for good. Avoid things that may cause your wheezing. These may include colds, smoke, air pollution, dust, pollen, pets, cockroaches, stress, and cold air. When should you call for help? Call 911 anytime you think you may need emergency care. For example, call if: You have severe trouble breathing. You passed out (lost consciousness). Call your doctor now or seek immediate medical care if: You cough up yellow, dark brown, or bloody mucus (sputum). You have new or worse shortness of breath. Your wheezing is not getting better or it gets worse after you start taking your medicine. Watch closely for changes in your health, and be sure to contact your doctor if: You do not get better as expected. Where can you learn more? Go to [email or web address]. Enter V454 in the search box to learn more about 'Wheezing or Bronchoconstriction: Care Instructions.' Interested in seeing a video go to [email or web address] to see all video content. Current as of: December 17, 2020 Content Version: 13.1 [employer]. Care instructions adapted under license by your healthcare professional. If you have questions about a medical condition or this instruction, always ask your healthcare professional. [employer] disclaims any warranty or liability for your use of this information. documented in this [facility]06-09-2021 History and physical note* Ron Garay MD - 11/20/2020 2:15 PM EDT CHIEF COMPLAINT: Violet Warner presents to the office for Chief Complaint Patient presents with Follow-up CT results HPI: Established patient here today to review CT results. Patient continues to have problems with smelling and breathing on the left side of her nose. Patient states she has no pain in her left sinus, shemainly feels like she cannot breathe through the left side of her nose. Patient denies pain and discomfort today. No further questions or concerns. ALLERGIES: has No Known Allergies. CURRENT MED LIST: has a current medication list which includes the following prescription(s): albuterol, budesonide-formoterol, cetirizine, ergocalciferol, fluticasone, fluticasone, lisinopril, loratadine, and metoprolol succinate. FAMILY HISTORY: family history includes Diabetes in her mother; Stroke in her father. PAST MEDICAL HISTORY: has a past medical history of Allergies, Asthma in adult, Essential hypertension, benign, and Hidradenitis suppurativa. PAST SURGICAL HISTORY: has no past surgical history on file. SOCIAL HISTORY: reports that she has quit smoking. Her smoking use included cigarettes. She started smoking about 11 years ago. She has never used smokeless tobacco. She reports current drug use. Drug: Marijuana. She reports that she does not drink alcohol. DIAGNOSIS: No diagnosis found. REVIEW OF SYSTEMS: Review of Systems Constitutional: Negative. Eyes: Negative. Respiratory: Negative. Cardiovascular: Negative. Gastrointestinal: Negative. Musculoskeletal: Negative. Skin: Negative. Allergic/Immunologic: Negative. Neurological: Negative. Psychiatric/Behavioral: Negative. All other systems reviewed and are negative. PHYSICAL EXAM/VITALS: Vitals: 11/20/20 1403 Temp: 97 F (36.1 C) Physical Exam Vitals and nursing note reviewed. Constitutional: Appearance: Normal appearance. She is not ill-appearing. HENT: Head: Normocephalic. Nose: Nose normal. Eyes: General: Right eye: No discharge. Left eye: No discharge. Cardiovascular: Rate and Rhythm: Normal rate. Pulmonary: Effort: Pulmonary effort is normal. Abdominal: General: There is no distension. Musculoskeletal: General: Normal range of motion. Cervical back: Normal range of motion. Skin: General: Skin is warm and dry. Capillary Refill: Capillary refill takes less than 2 seconds. Neurological: General: No focal deficit present. Mental Status: She is alert and oriented to person, place, and time. Psychiatric: Mood and Affect: Mood normal. All previous testing/results have been reviewed. ASSESSMENT/IMPRESSION: ICD-10-CM 1. Deviated nasal septum J34.2 2. Nasal obstruction J34.89 3. Chronic sinusitis, unspecified location J32.9 PLAN: Nasal endoscopy Prior to the procedure, most of the common possible complications and/or side effects were explained to the patient. Nasal and left sinus surgery Start Flonase, Claritin, Zyrtec Flonase was ordered since this is the one with the least systemic dissemination from its class. documented in this [facility]06-09-2021 Instructions* Patient Instructions* YULISA RUTH - 11/20/2020 2:15 PM EDT Procedure today: Nasal endoscopy Flonase - [place] into each nostril twice per day Claritin- Take one pill in the morning Zyrtec- Take one pill in the evening All medication were electronically sent to your pharmacy on record with [employer] documented in this [facility]06-09-2021 Procedure note* Ron Garay MD - 11/20/2020 2:15 PM EDT Associated Order(s): NM NASAL ENDOSCOPY,DX After the nose was sprayed with Afrin nasal spray was evaluated with the 0 telescope. The nasal septum is deviated to the left with obliteration of the left nasal passage by 60-80% and 4+ hypertrophyof the inferior turbinates bilaterally. documented in this [facility]05-25-2021 History of Present illness Narrative* Ron Garay MD - 11/05/2020 3:30 PM EDT Visit cancelled due to scheduling error documented in this [facility]05-12-2021 History and physical note* Ron Garay MD - 10/23/2020 2:15 PM EDT CHIEF COMPLAINT: Violet Warner presents to the office for Chief Complaint Patient presents with New Patient Chronic nasal congestion HPI: New patient here today with complaints of chronic nasal congestion. Patient states she has had nasal congestion for the last 7 months. Patient reports trying many different OTC medications with no success. Patient also reports sinus headaches, pressure and infections. Patient has had multiple sinus infections in the past. Patient denies pain and discomfort today. No further questions or concerns. ALLERGIES: has No Known Allergies. CURRENT MED LIST: has a current medication list which includes the following prescription(s): albuterol, budesonide-formoterol, ergocalciferol, fluticasone, lisinopril, and metoprolol succinate. FAMILY HISTORY: family history includes Diabetes in her mother; Stroke in her father. PAST MEDICAL HISTORY: has a past medical history of Allergies, Asthma in adult, Essential hypertension, benign, and Hidradenitis suppurativa. PAST SURGICAL HISTORY: has no past surgical history on file. SOCIAL HISTORY: reports that she has quit smoking. Her smoking use included cigarettes. She started smoking about 11 years ago. She has never used smokeless tobacco. She reports current drug use. Drug: Marijuana. She reports that she does not drink alcohol. DIAGNOSIS: No diagnosis found. REVIEW OF SYSTEMS: Review of Systems Constitutional: Negative. Eyes: Negative. Respiratory: Negative. Cardiovascular: Negative. Gastrointestinal: Negative. Musculoskeletal: Negative. Skin: Negative. Allergic/Immunologic: Negative. Neurological: Negative. Psychiatric/Behavioral: Negative. All other systems reviewed and are negative. PHYSICAL EXAM/VITALS: There were no vitals filed for this visit. Physical Exam Vitals and nursing note reviewed. Constitutional: Appearance: Normal appearance. She is not ill-appearing. HENT: Head: Normocephalic. Nose: Nose normal. Eyes: General: Right eye: No discharge. Left eye: No discharge. Cardiovascular: Rate and Rhythm: Normal rate. Pulmonary: Effort: Pulmonary effort is normal. Abdominal: General: There is no distension. Musculoskeletal: General: Normal range of motion. Cervical back: Normal range of motion. Skin: General: Skin is warm and dry. Capillary Refill: Capillary refill takes less than 2 seconds. Neurological: General: No focal deficit present. Mental Status: She is alert and oriented to person, place, and time. Psychiatric: Mood and Affect: Mood normal. All previous testing/results have been reviewed. ASSESSMENT/IMPRESSION: ICD-10-CM 1. Deviated nasal septum J34.2 CT SINUSES WITHOUT CONTRAST NM NASAL ENDOSCOPY,DX cetirizine 10 MG tablet fluticasone 50 MCG/ACT Suspension nasal spray loratadine 10 MG tablet 2. Nasal obstruction J34.89 CT SINUSES WITHOUT CONTRAST NM NASAL ENDOSCOPY,DX cetirizine 10 MG tablet fluticasone 50 MCG/ACT Suspension nasal spray loratadine 10 MG tablet 3. Chronic sinusitis, unspecified location J32.9 CT SINUSES WITHOUT CONTRAST NM NASAL ENDOSCOPY,DX cetirizine 10 MG tablet fluticasone 50 MCG/ACT Suspension nasal spray loratadine 10 MG tablet PLAN: Nasal endoscopy today Prior to the procedure, most of the common possible complications and/or side effects were explained to the patient. Start Flonase, Claritin, Zyrtec CT of sinuses documented in this [facility]05-12-2021 Instructions* Patient Instructions* YULISA RUTH - 10/23/2020 2:[address] scan - they will call to schedule Flonase - [place] into each nostril twice per day Claritin- Take one pill in the morning Zyrtec- Take one pill in the evening All medication were electronically sent to your pharmacy on record with [employer] Procedure done today: nasal endoscopy documented in this [facility]05-12-2021 Procedure note* Ron Garay MD - 10/23/2020 2:15 PM EDT Associated Order(s): NM NASAL ENDOSCOPY,DX The nose was protruding from sinuses. Was evaluated with the 0 telescope. The septum was deviated to the left with obliteration of the left nasal passage by about 80% percent and left nasal septal spur and 4+ hypertrophy of the inferior turbinates bilaterally. documented in this [facility]05-12-2021 History of Present illness Narrative* Cecile Oleary APRN-CNP - 10/23/2020 8:00 AM EDT Patient: Violet Warner Patient : 1990 Patient Age: 30 y.o. Today's Date: 10/23/2020 Provider: GIO Dupont History of Present Illness: Patient here today for evaluation of Chief Complaint Patient presents with Nasal Congestion Hand Swelling HPI: Patient presents for Chief Complaint Patient presents with Nasal Congestion Hand Swelling Pt states she would like to get checked for diabetes due to swelling of hands and arms for about 1 years. She also would like to get checked for allergies due to having stuffy nose for about 7 months. She does not feel blood pressure meds are working for her. She states systolic runs between 145-170 and diastolic runs from 93-120 She states that her right arm will swell intermittent. She states that there has been no injury. She has no numbness and no tingling. She is right hand dominant. History: No Known Allergies Past Medical History: Diagnosis Date Allergies Asthma in adult Essential hypertension, benign Hidradenitis suppurativa No past surgical history on file. Social History Tobacco Use Smoking status: Former Smoker Types: Cigarettes Start date: 04/27/2009 Smokeless tobacco: Never Used Substance Use Topics Alcohol use: No Drug use: Yes Types: Marijuana Family History Problem Relation Age of Onset Diabetes Mother Stroke Father Review of Systems: Review of Systems Constitutional: Negative for chills, diaphoresis and fatigue. HENT: SEE HPI Musculoskeletal: SEE HPI Physical Exam: Vitals: 10/23/20 0809 BP: (!) 155/102 Pulse: 81 Temp: 97.7 degrees F (36.5 degrees C) TempSrc: Temporal Weight: 87.5 kg (193 lb) Physical Exam Vitals and nursing note reviewed. HENT: Head: Normocephalic. Nose: Congestion present. Mouth/Throat: Mouth: Mucous membranes are moist. Cardiovascular: Rate and Rhythm: Normal rate and regular rhythm. Musculoskeletal: Right shoulder: Normal. Right upper arm: Normal. Right elbow: Normal. Right hand: Swelling present. No deformity, lacerations or tenderness. Normal range of motion. Cervical back: Neck supple. Skin: General: Skin is warm and dry. Capillary Refill: Capillary refill takes less than 2 seconds. Neurological: General: No focal deficit present. Mental Status: She is alert. Mental status is at baseline. Psychiatric: Mood and Affect: Mood normal. Thought Content: Thought content normal. Current Medications: Current Outpatient Medications: albuterol 108 (90 Base) MCG/ACT Aero Soln inhaler, Inhale 1 puff every 6 hours as needed for Wheezing., Disp: 1 Inhaler, Rfl: 0 budesonide-formoterol 160-4.5 mcg/puff Aerosol inhaler, Inhale 2 puffs every 12 hours., Disp: 1 Inhaler, Rfl: 3 ergocalciferol 1.25 MG ([id number] UT) capsule, Take 1 capsule by mouth once a week., Disp: 14 capsule, Rfl: 0 fluticasone 50 MCG/ACT Suspension nasal spray, 2 sprays each nostril daily, Disp: 1 Bottle, Rfl: 0 metoprolol succinate 25 MG tablet XL, Take 1 tablet by mouth daily., Disp: 30 tablet, Rfl: 11 lisinopril 20 MG tablet, Take 1 tablet by mouth daily., Disp: 90 tablet, Rfl: 0 Health Maintenance List: Health Maintenance Topic Date Due HEPATITIS C VIRUS SCREENING Never done HIV SCREENING DISCUSSION Never done COVID-19 VACCINE (1) Never done TETANUS Never done TDAP (ADULT) Never done CERVICAL CANCER SCREENING DISCUSSION Never done INFLUENZA VACCINE (Season Ended) 2021 Assessment & Plan: ICD-10-CM 1. Family history of diabetes mellitus Z83.3 CBC, EDIF, PLATELET HEMOGLOBIN A1C COMPREHENSIVE METABOLIC PANEL TSH W/FT4 REFLEX LIPID PANEL W CALCULATED LDL 2. Essential hypertension I10 CBC, EDIF, PLATELET HEMOGLOBIN A1C COMPREHENSIVE METABOLIC PANEL TSH W/FT4 REFLEX LIPID PANEL W CALCULATED LDL 3. Lymphedema of arm I89.0 CBC, EDIF, PLATELET HEMOGLOBIN A1C COMPREHENSIVE METABOLIC PANEL TSH W/FT4 REFLEX LIPID PANEL W CALCULATED LDL US DOPPLER ARTERIAL ARMS BILATERAL 4. Chronic congestion of paranasal sinus J32.9 AMB REFERRAL TO OTOLARYNGOLOGY Increased lisinopril to 20mg once daily and see logs in one week - started with an US to the RUE. Suggest that we do an US of RUE. Labs and suggest ENT for chronic nasal congestion and swelling. She agreed to this POC. No follow-ups on file. Patient was advised to call with any questions or concerns. If symptoms worsen patient was advised to follow up in our office or the Emergency Dept. Benefits, risks, contraindications, and complications of recommended treatments were explained the patient understands and agrees to proceed with plan. * Michelle Abraham MA - 10/23/2020 8:00 AM EDT HPI: Patient presents for Chief Complaint Patient presents with Nasal Congestion Hand Swelling Pt states she would like to get checked for diabetes due to swelling of hands and arms for about 1 years. She also would like to get checked for allergies due to having stuffy nose for about 7 months. She does not feel blood pressure meds are working for her. She states systolic runs between 145-170 and diastolic runs from 93-120 [facility] Family history of diabetes mellitus- Primary Essential hypertension Unspecified essential hypertension Lymphedema of arm Other lymphedema Chronic congestion of paranasal sinus documented in this encounter [facility] note* Diagnosis Deviated nasal septum- Primary Nasal obstruction Other diseases of nasal cavity and sinuses Chronic sinusitis, unspecified location documented in this encounter [facility] note* Diagnosis Deviated nasal septum- Primary documented in this encounter [facility] note* Diagnosis Lymphedema of arm Other lymphedema documented in this encounter [facility] note* Diagnosis Deviated nasal septum Nasal obstruction Other diseases of nasal cavity and sinuses Chronic sinusitis, unspecified location documented in this encounter [facility] note* Diagnosis Deviated nasal septum- Primary Nasal obstruction Other diseases of nasal cavity and sinuses Chronic sinusitis, unspecified location documented in this encounter [facility] note* Diagnosis Cough- Primary documented in this encounter [facility] note* Diagnosis Hidradenitis suppurativa- Primary Hidradenitis documented in this encounter [facility] note* Diagnosis Hidradenitis suppurativa- Primary Hidradenitis documented in this encounter [facility] note* Diagnosis Hidradenitis suppurativa Hidradenitis documented in this encounter [facility] note* Diagnosis Asthma, unspecified asthma severity, unspecified whether complicated, unspecified whether persistent- Primary documented in this encounter [facility] note* Diagnosis Hidradenitis suppurativa- Primary Hidradenitis documented in this encounter [facility] note* Diagnosis Hidradenitis suppurativa- Primary Hidradenitis documented in this encounter [facility] note* Diagnosis Moderate persistent asthma with acute exacerbation- Primary Asthma, unspecified asthma severity, unspecified whether complicated, unspecified whether persistent [facility] Diagnosis Uncontrolled hypertension- Primary Unspecified essential hypertension Prediabetes Other abnormal glucose Vitamin D deficiency Unspecified vitamin D deficiency Moderate persistent asthma without complication Unspecified asthma Other depression Edema of right upper extremity Encounter for smoking cessation counseling Counseling on substance use and abuse [facility] Diagnosis Hidradenitis suppurativa- Primary Hidradenitis [facility] Diagnosis Hypertension, unspecified type- Primary Postural dizziness Dizziness and giddiness Edema of right upper extremity Other depression Encounter for smoking cessation counseling Counseling on substance use and abuse [facility] Diagnosis Vitamin D insufficiency documented in this encounter [facility] Diagnosis Encounter for long-term (current) use of medications- Primary Encounter for long-term (current) use of other medications [facility] Diagnosis Pneumonia of left lower lobe due to infectious organism- Primary Upper abdominal pain Abdominal pain, other specified site Hypokalemia Hypopotassemia [facility]* Diagnosis Hypertension, unspecified type- Primary Moderate persistent asthma without complication Unspecified asthma Prediabetes Other abnormal glucose Edema of right upper extremity Sebaceous cyst [facility] Diagnosis 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, soft tissue, and skin [facility]* Diagnosis Edema of right upper extremity [facility]* Diagnosis Benign hypertension- Primary Essential hypertension, benign Hidradenitis suppurativa Hidradenitis Edema of right upper extremity Gastroesophageal reflux disease without esophagitis Esophageal reflux [facility]* Diagnosis 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 * Asthma: General Info (Iranian) [facility]* Attachments The following attachments cannot be sent through Care Everywhere. * Asthma: Adult (Iranian) [facility] Author Jorge Day [facility] Note Date/Time March 23, 2025 1 1:56am [facility] [address] [facility] [address] [place] [address] OFFICE VISIT Date of Service: 03/23/25 MR#: [id number] Acct: [id number] Name: VIOLET WARNER Rep #: [id number] : 1990 Provider: Dr. Kam rt MD Shay Age/Sex: 34/F [place] [facility] [place]: Signed Intake Vital Signs 01/26/25 09:54 03/23/25 11:34 Height 5 ft 4 in Weight: 189 lb BMI 32.4 BP 162/103 H 138/92 H Blood Pressure Location Rt brachial Rt brachial Position Sitting Sitting Respiration 18 18 Pulse 74 86 Pulse Source Monitor Monitor Pulse Oximetry (%) 98 99 Oxygen Delivery Method room air Intake Visit Reasons: post op-suture removal/steroid injection Chief Complaint: post op Is patient in pain?: No Allergies No Known Allergies Allergy (Unverified 03/23/25 11:33) Medications ?Medication ?Instructions ?Recorded ?Confirmed ?Type amlodipine 5 mg tablet 5 mg PO QDAY 01/26/25 History bimekizumab-bkzx 320 mg/2 mL mg subcut 01/26/25 History subcutaneous auto-injector (Bimzelx Autoinjector) lisinopril 20 1 tab PO QDAY 01/26/2503/23 History mg-hydrochlorothiazide 25 mg tablet pantoprazole 40 mg tablet,delayed 40 mg PO QDAY 03/23/25 History release Nurse's Note: Lidocaine 1% [facility] 1083-9960-30 LOT [id number] EXP 08/2025 Subjective Details: Patient doing well overall postop Pain controlled and her areas of hidradenitis excision and scar excision of the right armpit have healed Objective Details: No drainage and healing nicely Incision sites examined and Prolene sutures removed Coding Level of Care Code Global Post Op Diagnoses Hydradenitis L73.2 Keloid L91.0 [facility] Medical History Asthma Hypertension Surgical History Neoplasm of soft tissue Family History Other Diabetes Hypertension Social History Smoking Status: Former smoker Assessment and Plan (No Qualifiers) Assessment and Plan (1) Hydradenitis: Status: Acute Plan: Expected course after excision (2) Keloid: Status: Acute Plan: Keloid injected with 1 cc of Kenalog 10 (in the area of excision) so as to prevent keloid from reforming She would like to other spots excised (hidradenitis areas and keloid scar) in the right axilla. We will schedule Patient happy with the plan 03/23/25 [id number] <Electronically signed by Jorge Day MD> Date _ Jorge Day MD Cosigner Signature: Date (if applicable) CC: ~ [employer] Work Phone: Reason for referral (narrative)* Consultation (Routine) Status Reason Specialty Diagnoses / Procedures Referred By Contact Referred To Contact New Request Otolaryngology Diagnoses Chronic congestion of paranasal sinus Cecile Oleary APRN-CNP [address] [place] [address], [place] [phone] Electronically signed by Cecile POWERS at * Radiology (Routine) Status Reason Specialty Diagnoses / Procedures Referred By Contact Referred To Contact Auth Not Needed Diagnoses Lymphedema of arm Procedures US DOPPLER ARTERIAL ARMS BILATERAL Cecile Oleary, EXOTIC DANCER-WET WHEELER [address], [address] [place] [address] Electronically signed by Ceclie Oleary APRN-WET WHEELER at [facility] for referral (narrative)* Consultation (Urgent) - New Request Specialty Diagnoses / Procedures Referred By Contac t Referred To Contact Family Medicine Diagnoses Asthma, unspecified asthma severity, unspecified whether complicated, unspecified whether persistent Kaitlyn Cosme, EXOTIC DANCER-WET WHEELER [address] [place] [address] Referral ID Status Reason Start Date Expiration Date V isits Requested Visits Authorized [id number] New Request 10/01/2021 10/26/2022 1 1 [facility] for referral (narrative)* Consultation (Urgent) - New Request Specialty Diagnoses / Procedures Referred By Contac t Referred To Contact Family Medicine Diagnoses Moderate persistent asthma with acute exacerbation Garo Adams MD [address] [place] [id number] Cordell Steve EXOTIC DANCER-WET WHEELER [address] [place] [phone] Referral ID Status Reason Start Date Expiration Date V isits Requested Visits Authorized [id number] New Request 12/15/2021 01/09/2023 1 1 [facility] for referral (narrative)* Consultation (Urgent) - New Request Specialty Diagnoses / Procedures Referred By Contac t Referred To Contact Family Medicine Diagnoses Pneumonia of left lower lobe due to infectious organism Upper abdominal pain Bar Bland MD [address] [place] [id number] Cordell Steve EXOTIC DANCER-WET WHEELER [address] [place] [phone] Referral ID Status Reason Start Date Expiration Date V isits Requested Visits Authorized [id number] New Request 02/02/2023 02/27/2024 1 1 * Radiology (Emergency) - Closed Specialty Diagnoses / Procedures Referred By Contac t Referred To Contact Procedures US ABDOMEN RUQ/LIVER/GB Bar Bland MD [address] [place] [address] Referral ID Status Reason Start Date Expiration Date Visits Re quested Visits Authorized [id number] Closed 02/02/2023 02/27/2024 1 1 * (Emergency) - New Request Specialty Diagnoses / Procedures Referred By Contac t Referred To Contact Procedures LIPASE Bar Bland MD [address] [place] [address] Referral ID Status Reason Start Date Expiration Date V isits Requested Visits Authorized [id number] New Request 02/02/2023 02/27/2024 1 1 [facility] (narrative)No reason for referral information availableWKet[facility] Work Phone: Reason for visit Narrative* Radiology (Routine) - Closed Specialty Diagnoses / Procedures Referred By Contac t Referred To Contact Diagnoses Edema of right upper extremity Procedures US PLEURAL SPACE/CHEST/MED US NON VASCULAR EXTREMITY UPPER RIGHT WITHOUT CONTRAST Cordell Steve APRN-WET WHEELER [address] [place] [address] Phone: tel: fax: Referral ID Status Reason Start Date Expiration Date Visits Re quested Visits Authorized [id number] Closed 09/11/2024 10/06/2025 1 1 [facility] Assessments Diagnosis Edema, unspecified type Axillary hidradenitis suppur ativa Diagnosis Hidradenitis axillaris - [facility] Hidradenitis Diagnosis Allergic cough- Primary Cough Diagnosis Hidradenitis suppurativa- Primary Hidradenitis Diagnosis Hidradenitis suppurativa- Primary Hidradenitis Diagnosis Shortness of breath- Primary Cough Wheezy bronchitis Bronchitis, not specified as acute or chronic Diagnosis Shortness of breath Diagnosis Wheezy bronchitis- Primary Bronchitis, not specified as acute or chronic Rhinitis, unspecified type Diagnosis Fever and chills- Primary Fever, unspecified Wheezing on auscultation Wheezing Acute bronchitis due to other specified organisms Discharge Instructions * Alexis Hatch PA-C - 02/08/2017 Hidradenitis Suppurativa: Care Instructions Your Care Instructions Hidradenitis suppurativa (say "fsa-rngx-zt-NY-tus pai-enq-bp-TY-vuh") is a skin condition that causes lumps on the skin that look like pimples or boils. The lumps are usually painful and can break open and drain blood and bad-smelling pus. The condition can come and go for many years. Treatment for this condition may include antibiotics and other medicines. You may need surgery to remove the lumps. Home care includes wearing loose-fitting clothes and washing the area gently. You can help prevent lumps from coming back by staying at a healthy weight and not smoking. Doctors don't know exactly how this condition starts. But they do know that something irritates andinflames the hair follicles, causing them to swell and form lumps. This skin condition can't be spread from person to person (isn't contagious). Follow-up care is a cespedes part of your treatment and safety. Be sure to make and go to all appointments, and call your doctor if you are having problems. It's also a good idea to know your test resultsand keep a list of the medicines you take. How can you care for yourself at home? Skin care Wash the area every day with mild soap. Use your hands rather than a washcloth or sponge when you wash that part of your body. Leave the affected areas uncovered when you can. If you have lumps that are draining, you can coverthem with a bandage or other dressing. Put petroleum jelly (such as Vaseline) on the dressing to help keep it from sticking. Wear-loose fitting clothes that don't rub against the area. Avoid activities that cause skin to rubtogether. If you have pain, try a warm compress. Soak a towel or washcloth in warm water, wring it out, and place it on the affected skin for about 10 minutes. Medicines Be safe with medicines. Take your medicines exactly as prescribed. Call your doctor if you think you are having a problem with your medicine. You will get more details on the specific medicines your doctor prescribes. If your doctor prescribed antibiotics, take them as directed. Do not stop taking them just because you feel better. You need to take the full course of antibiotics. Lifestyle choices If you smoke, think about quitting. Smoking can make the condition worse. If you need help quitting, talk to your doctor about stop-smoking programs and medicines. These can increase your chances of quitting for good. Stay at a healthy weight, or lose weight, by eating healthy foods and being physically active. Being overweight could make this condition worse. When should you call for help? Call your doctor now or seek immediate medical care if: You have increasing pain. You have symptoms of infection, such as: Increased pain, swelling, warmth, or redness. Red streaks leading from the area. Pus draining from the area. A fever. Watch closely for changes in your health, and be sure to contact your doctor if: You are not getting better as expected. Where can you learn more? Log into your personal health record on https://Infoflowhart.Voalte and enter N962 in the "Education" box to learn more about "Hidradenitis Suppurativa: Care Instructions." Current as of: March 26, 2016 Content Version: 11.2 6624-9413 [employer]. Care instructions adapted under license by your healthcare professional. If you have questions about a medical condition or this instruction, always ask your healthcare professional. [employer] disclaims any warranty or liability for your use of this information. 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 Many things can cause a cough. You might cough because of a cold or the flu, bronchitis, or asthma. Smoking, postnasal drip, allergies, and stomach acid that backs up into your throat also can cause coughs. A cough is a symptom, not a disease. Most coughs stop when the cause, such as a cold, goes away. You can take a few steps at home to cough less and feel better. Follow-up care is a cespedes part of your treatment and safety. Be sure to make and go to all appointments, and call your doctor if you are having problems. It's also a good idea to know your test resultsand keep a list of the medicines you take. How can you care for yourself at home? Drink lots of water and other fluids. This helps thin the mucus and soothes a dry or sore throat. Honey or lemon juice in hot water or tea may ease a dry cough. Take cough medicine as directed by your doctor. Prop up your head on pillows to help you breathe and ease a dry cough. Try cough drops to soothe a dry or sore throat. Cough drops don't stop a cough. Medicine-flavored cough drops are no better than candy-flavored drops or hard candy. Do not smoke. Avoid secondhand smoke. If you need help quitting, talk to your doctor about stop-smoking programs and medicines. These can increase your chances of quitting for good. When should you call for help? Call 911 anytime you think you may need emergency care. For example, call if: You have severe trouble breathing. Call your doctor now or seek immediate medical care if: You cough up blood. You have new or worse trouble breathing. You have a new or higher fever. You have a new rash. Watch closely for changes in your health, and be sure to contact your doctor if: You cough more deeply or more often, especially if you notice more mucus or a change in the color of your mucus. You have new symptoms, such as a sore throat, an earache, or sinus pain. You do not get better as expected. Where can you learn more? Go to http://www.cookdinner.os.edu/patiented. Enter D279 in the search box to learn more about 'Cough: Care Instructions.' Interested in seeing a video go to [email or web address]/videolibrary to see all video content. Current as of: August 07, 2019 Content Version: 12. [employer]. Care instructions adapted under license by your healthcare professional. If you have questions about a medical condition or this instruction, always ask your healthcare professional. [employer] disclaims any warranty or liability for your use of this information. cetirizine (oral/injection) Pronunciation: se BANDAR burnham zeen Brand: All Day Allergy, All Day Allergy Children's, Aller-Wanda, Indoor/Outdoor Allergy Relief, Quzyttir, ZyrTEC What is the most important information I should know about cetirizine? Before using cetirizine tell your doctor about all your medical conditions or allergies, all medicines you use, and if you are or . What is cetirizine? Cetirizine is an antihistamine that reduces the effects of natural chemical histamine in the body. Histamine can produce symptoms of sneezing, itching, watery eyes, and runny nose. Cetirizine oral is used in adults and children to treat cold or allergy symptoms such as sneezing, itching, watery eyes, or runny nose. Cetirizine injection is used to treat hives (urticaria) in adults and children at least 6 months old. Cetirizine may also be used for purposes not listed in this medication guide. What should I discuss with my healthcare provider before using cetirizine? You should not use this medicine if you are allergic to cetirizine or levocetirizine. Cetirizine injection is not for use in children young than 6 years old who have liver or kidney disease. Ask a doctor or pharmacist if it is safe for you to take cetirizine oral if you have any medical conditions. Ask a doctor before using this medicine if you are or . Before you are treated with cetirizine injection in an emergency, you may not be able to tell caregivers about your health conditions. Make sure any doctor caring for you afterward knows you receivedthis medicine. How should I use cetirizine? Cetirizine oral is taken by mouth. Cetirizine injection is given as an infusion into a vein. A healthcare provider will give you this injection once every 24 hours as needed to treat hives. Use cetirizine oral exactly as directed on the label, or as prescribed by your doctor. Older adults may need to take a lower than normal dose. Follow your doctor's instructions. You may take cetirizine with or without food. You must chew the chewable tablet before you swallow it. Do not swallow the dissolving tablet whole. Allow it to dissolve in your mouth without chewing. Swallow several times as the tablet dissolves. If desired, you may drink liquid to help swallow the dissolved tablet. Measure liquid medicine carefully. Use the dosing syringe provided, or use a medicine dose-measuring device (not a kitchen spoon). Call your doctor if your symptoms do not improve, if they get worse, or if you also have a fever. Store at room temperature away from moisture and heat. Do not allow liquid medicine to freeze. What happens if I miss a dose? Take the medicine as soon as you can, but skip the missed dose if it is almost time for your next dose. Do not take two doses at one time. What happens if I overdose? Seek emergency medical attention or call the Poison Help line at . Overdose symptoms may include extreme drowsiness, vision problems, agitation, feeling restless and then drowsy or tired, fast heartbeats, stomach pain, nausea, vomiting, trouble walking, or trouble swallowing or speaking. What should I avoid while using cetirizine? Avoid driving or hazardous activity until you know how this medicine will affect you. Your reactions could be impaired. Avoid drinking alcohol while taking cetirizine. What are the possible side effects of cetirizine? Get emergency medical help if you have signs of an allergic reaction: hives; difficult breathing; swelling of your face, lips, tongue, or throat. Stop taking this medicine and call your doctor at once if you have: fast, pounding, or uneven heartbeat; weakness, tremors (uncontrolled shaking), or sleep problems (insomnia); severe restless feeling, hyperactivity; confusion; problems with vision; or little or no urination. Common side effects may include: drowsiness, tiredness; dizziness, feeling light-headed; feeling hot, sweating; numbness, tingling, burning pain; decreased sense of taste; headache; upset stomach, nausea, constipation; or dry mouth, sore throat. This is not a complete list of side effects and others may occur. Call your doctor for medical advice about side effects. You may report side effects to FDA at 0-866-VXT-2941. What other drugs will affect cetirizine? Using cetirizine with other drugs that make you drowsy can worsen this effect. Ask your doctor before using opioid medication, a sleeping pill, a muscle relaxer, or medicine for anxiety or seizures. Other drugs may affect cetirizine, including prescription and sthx-cfc-rxvtaii medicines, vitamins,and herbal products. Tell your doctor about all your current medicines and any medicine you start or stop using. Where can I get more information? Your pharmacist can provide more information about cetirizine. Remember, keep this and all other medicines out of the reach of children, never share your medicines with others, and use this medication only for the indication prescribed. Every effort has been made to ensure that the information provided by [employer] ('[employer]') is accurate, up-to-date, and complete, but no guarantee is made to that effect. Drug information contained herein may be time sensitive. [employer] information has been compiled for use by healthcare practitioners and consumers in the [place] and therefore [employer] does not warrant that uses outside of the [place] are appropriate, unless specifically indicated otherwise. [employer] drug information does not endorse drugs, diagnose patients or recommend therapy. [employer] drug information isan informational resource designed to assist licensed healthcare practitioners in caring for their p atients and/or to serve consumers viewing this service as a supplement to, and not a substitute for, the expertise, skill, knowledge and judgment of healthcare practitioners. The absence of a warningfor a given drug or drug combination in no way should be construed to indicate that the drug or drug combination is safe, effective or appropriate for any given patient. [employer] does not assume any responsibility for any aspect of healthcare administered with the aid of information [employer] provides. The information contained herein is not intended to cover all possible uses, directions, precautions, warnings, drug interactions, allergic reactions, or adverse effects. If you have questions about the drugs you are taking, check with your doctor, nurse or pharmacist. Copyright 5766-0450 [employer] Version: 12.. Revision date: 10/18/2019. Care instructions adapted under license by your healthcare professional. If you have questions about a medical condition or this instruction, always ask your healthcare professional. [employer] disclaims any warranty or liability for your use of this information. fluticasone nasal Pronunciation: floo TIK a sone Brand: Flonase, Veramyst, Xhance What is the most important information I should know about fluticasone nasal? Follow all directions on your medicine label and package. Tell each of your healthcare providers about all your medical conditions, allergies, and all medicines you use. What is fluticasone nasal? Fluticasone nasal (for the nose) is a steroid medicine that is used to treat nasal congestion, sneezing, runny nose, and itchy or watery eyes caused by seasonal or year-round allergies. The Xhance brand of this medicine is for use only in adults. Veramyst may be used in children as young as 2 years old. Flonase is for use in adults and children who are at least 4 years old. Fluticasone nasal may also be used for purposes not listed in this medication guide. What should I discuss with my healthcare provider before using fluticasone nasal? You should not use fluticasone nasal if you are allergic to it. Fluticasone can weaken your immune system, making it easier for you to get an infection or worsening an infection you already have or recently had. Tell your doctor about any illness or infection youhave had within the past several weeks. Tell your doctor if you have ever had: sores or ulcers inside your nose; injury of or surgery on your nose; glaucoma or cataracts; liver disease; diabetes; a weak immune system; or any type of infection (bacterial, fungal, viral, or parasitic). If you use fluticasone nasal without a prescription and you have any medical conditions, ask a doctor or pharmacist if this medicine is safe for you. Tell your doctor if you are or breast-feeding. How should I use fluticasone nasal? Follow all directions on your prescription label and read all medication guides or instruction sheets. Use the medicine exactly as directed. Do not share this medicine with another person, even if they have the same symptoms you have. Your dose will depend on the fluticasone brand or strength you use, and your dose may change once your symptoms improve. Follow all dosing instructions very carefully. A child using the nasal spray should be supervised by an adult. Read and carefully follow any Instructions for Use provided with your medicine. Ask your doctor or pharmacist if you do not understand these instructions. Shake the nasal spray just before each use. If you switched to fluticasone from another steroid medicine, you should not stop using it suddenly. Follow your doctor's instructions about tapering your dose. It may take several days before your symptoms improve. Keep using the medication as directed and tell your doctor if your symptoms do not improve after a week of treatment. Store fluticasone nasal in an upright position at room temperature, away from moisture and heat. Throw the spray bottle away after you have used 120 sprays, even if there is still medicine left in the bottle. What happens if I miss a dose? Use the medicine as soon as you can, but skip the missed dose if it is almost time for your next dose. Do not use two doses at one time. What happens if I overdose? Seek emergency medical attention or call the Poison Help line at . An overdose of fluticasone nasal is not expected to produce life threatening symptoms. long term care phlebotomist use of steroid medicine can lead to glaucoma, cataracts, thinning skin, easy bruising, changes in bodyfat (especially in your face, neck, back, and waist), increased acne or facial hair, menstrual problems, impotence, or loss of interest in sex. What should I avoid while using fluticasone nasal? Avoid getting the spray in your eyes or mouth. If this does happen, rinse with water. Avoid being near people who are sick or have infections. Call your doctor for preventive treatment if you are exposed to chickenpox or measles. These conditions can be serious or even fatal in peoplewho are using fluticasone nasal. What are the possible side effects of fluticasone nasal? Get emergency medical help if you have signs of an allergic reaction: hives, rash; feeling light-headed; difficult breathing; swelling of your face, lips, tongue, or throat. Call your doctor at once if you have: severe or ongoing nosebleeds; noisy breathing, runny nose, or crusting around your nostrils; redness, sores, or white patches in your mouth or throat; fever, chills, body aches; blurred vision, eye pain, or seeing halos around lights; any wound that will not heal; or signs of a hormonal disorder --worsening tiredness or muscle weakness, feeling light-headed, nausea, vomiting. Steroid medicine can affect growth in children. Tell your doctor if your child is not growing at a normal rate while using this medicine. Common side effects may include: minor nosebleed, burning or itching in your nose; sores or white patches inside or around your nose; cough, trouble breathing; headache, back pain; sinus pain, sore throat, fever; or nausea, vomiting. This is not a complete list of side effects and others may occur. Call your doctor for medical advice about side effects. You may report side effects to FDA at 3-703-SQD-1216. What other drugs will affect fluticasone nasal? Tell your doctor about all your other medicines, especially: antifungal medicine; or antiviral medicine to treat hepatis C or HIV/AIDS. This list is not complete. Other drugs may affect fluticasone nasal, including prescription and btzb-dhk-idughed medicines, vitamins, and herbal products. Not all possible drug interactions are listed here. Where can I get more information? Your pharmacist can provide more information about fluticasone nasal. Remember, keep this and all other medicines out of the reach of children, never share your medicines with others, and use this medication only for the indication prescribed. Every effort has been made to ensure that the information provided by [employer] is accurate, up-to-date, and complete, but no guarantee is made to that effect. Drug information contained herein may be time sensitive. [employer] information has been compiled for use by healthcare practitioners and consumers in the [place] and therefore [employer] does not warrant that uses outside of the [place] are appropriate, unless specifically indicated otherwise. [employer] drug information does not endorse drugs, diagnose patients or recommend therapy. [employer] drug information isan informational resource designed to assist licensed healthcare practitioners in caring for their p atients and/or to serve consumers viewing this service as a supplement to, and not a substitute for, the expertise, skill, knowledge and judgment of healthcare practitioners. The absence of a warningfor a given drug or drug combination in no way should be construed to indicate that the drug or drug combination is safe, effective or appropriate for any given patient. [facility] does not assume any responsibility for any aspect of healthcare administered with the aid of information [facility] provides. The information contained herein is not intended to cover all possible uses, directions, precautions, warnings, drug interactions, allergic reactions, or adverse effects. If you have questions about the drugs you are taking, check with your doctor, nurse or pharmacist. Copyright 2018-8264 [facility]. Version: 10.02. Revision date: 06/12/2019. Care instructions adapted under license by your healthcare professional. If you have questions about a medical condition or this instruction, always ask your healthcare professional. [employer] disclaims any warranty or liability for your use of this information. documented in this encounter* Patient Instructions* Theresa Villalba PA-C - 04/28/2020 4:50 PM EST Bronchitis with Inhaler Bronchitis is an infection or inflammation of the large air passages in your lungs. The inflammation can limit air flow out of your lungs to cause wheezing or trouble breathing. It is common to feel more problems with breathing at night, when lying in bed, or in wet weather. Air pollution, tobacco smoke and having a cold can often make bronchitis worse. Most infections that cause bronchitis are from viruses that are not treated with antibiotics. If your doctor thinks you have an infection caused by bacteria, you will be given an antibiotic. Be sure if you have a prescription for antibiotics, you get the prescription filled and take all the medicine as ordered. Treatment Bronchitis will often last several weeks. You should start to feel better over the next week, not worse. Treatment may include: Medicine to ease your cough - often an over the counter medicine is suggested An prescription for albuterol (Ventolin or Proventil) inhaler. You can take it as often as every 4 hours to ease wheezing, coughing, or breathing problems. If you have not used an inhaler before, askthe pharmacist, nurse or doctor to review use instructions. Avoid smoking or being around other who may smoke. If you smoke, talk to your doctor about things you can do to quit. See your doctor or go to the nearest emergency department if you have: More problems with wheezing or trouble breathing or your symptoms get worse over the next few days. Fever of 100.4 degrees F or 38 degrees C or higher. Chest pain. Feel weak or dizzy. Are not able to keep liquids down or have vomiting that will not stop. 2014December 30, 2018, [facility]. This handout is for informational purposes only. Talk with your doctor or healthcare team if you have any questions about your care. For more health information, call the [employer] for [employer] Information at [phone] or email: [email or web address]. documented in this encounter* Patient Instructions* Kaitlyn Cosme, EXOTIC DANCER-WET WHEELER - 06/18/2020 5:00 PM EST Acute Bronchitis or Chest Cold Care Instructions Acute bronchitis, also called a chest cold, happens when your airways in your lungs, called bronchial tubes, swell and produce mucus. This is the most common type of bronchitis. The swelling of the airways and the mucus can make you cough and may cause some trouble breathing. Acute bronchitis can come on quickly after having a cold or the flu, and signs often go away in 7 to10 days, except for the cough that can last for up to 3 weeks. Common signs include: Soreness in your chest Frequent coughing with or without mucus Feeling tired Mild head or body aches Sore throat Fever or chills Watery eyes Runny or stuffy nose Bronchitis is most often caused by a virus, like colds, and antibiotics do not help and may be harmful. Your care at home Get lots of rest and drink plenty of fluids. Use a cool mist vaporizer, or breathe moist air from a hot shower or sink filled with hot water to help thin the mucus. Sip warm liquids such as tea, broth or soup to help ease congestion and soothe the throat. Suck on lozenges, ice chips or hard candy to ease the soreness in your throat and to ease coughing. Honey may also help to ease coughing, but should not be used for a child less than 1 year old. Do not smoke and avoid being around others who smoke. Take over the counter medicines as directed by your doctor or pharmacist to ease your signs. Be sure to follow the directions on the bottle or package label. These may include: ? Pain medicines, such as acetaminophen (Tylenol), naproxen (Aleve) or ibuprofen (Advil and Motrin)to help ease head and body aches. ? Expectorant cough medicine called guaifenisin to help loosen and break up the mucus to help coughit out. ? Cough suppressant called dextromethorphan to ease cough. Avoid cough medicines that have several medicines combined to avoid taking too much medicine and having more risk of side effects. Be sure to read the labels and follow the directions. Ask your doctor or pharmacist is you have any questions. Reduce the spread of infection to others Wash your hands often with soap and water or use alcohol based hand business account manager. Be sure to wash yourhands: ? After blowing your nose, coughing or sneezing ? Before you prepare food or eat ? After going to the bathroom ? After playing with or handling a pet ? After changing a diaper ? Before and after caring for an ill person Always cover your mouth and nose when coughing or sneezing. Wear a face mask. Keep your distance from others as much as possible. Follow up care Contact your primary care provider if you develop any of these signs: Temperature of 100.4 F or higher Cough with bloody mucus New or worse shortness of breath or trouble breathing Also contact your provider if: Your signs are lasting more than 3 weeks. You have bronchitis multiple times in a year. Call 911 if you are having severe trouble breathing. 2019April 10, 2020. [facility]. This handout is for informational purposes only. Talk with your doctor or healthcare team if you have any questions about your care. For more health information call the [employer] Health Information at [phone] or email: [email or web address]. documented in this encounter History of Present Illness * Kaitlyn Cosme, EXOTIC DANCER-WET WHEELER - 02/25/2020 1:05 PM EDT HPI Violet Warner female 1990 presents to the [facility] with Chief Complaint Patient presents with Cough Pt c/o "runny nose and cough" for past couple dasy. States post nasal drip is causing her cough which is worse when she lays down "and I know its not covid because I took that test already" Patient presents with dry cough and occ runny nose for a few days. Thinks it is related to sinuses.Requesting cough medication. Does not feel ill. No self treatments. No known exposure to COVID19. No others in the home ill. No recent travel. Denies fever, chills, NVD. She is a daily smoker. History No Known Allergies Current Outpatient Medications Medication Sig benzonatate 200 MG capsule Take 1 capsule by mouth 3 times daily as needed for Cough. hydroCODone-acetaminophen 5-325 MG Tab take 1 tablet by mouth 3 times daily as needed.. (Patient not taking: Reported on 02/25/2020) History reviewed. No pertinent family history. Past Medical History: Diagnosis Date Hidradenitis suppurativa No past surgical history on file. Social History Socioeconomic History Marital status: Single Spouse name: Not on file Number of children: Not on file Years of education: Not on file Highest education level: Not on file Occupational History Not on file Social Needs Financial resource strain: Not on file Food insecurity Worry: Not on file Inability: Not on file Transportation needs Medical: Not on file Non-medical: Not on file Tobacco Use Smoking status: Current Every Day Smoker Types: Cigarettes Smokeless tobacco: Never Used Substance and Sexual Activity Alcohol use: No Drug use: Yes Types: Marijuana Sexual activity: Not on file Lifestyle Physical activity Days per week: Not on file Minutes per session: Not on file Stress: Not on file Relationships Social connections Talks on phone: Not on file Gets together: Not on file Attends pentecostalism service: Not on file Active member of club or organization: Not on file Attends meetings of clubs or organizations: Not on file Relationship status: Not on file Intimate partner violence Fear of current or ex partner: Not on file Emotionally abused: Not on file Physically abused: Not on file Forced sexual activity: Not on file Other Topics Concern Service Not Asked Blood Transfusions Not Asked Caffeine Concern Not Asked Occupational Exposure Not Asked Hobby Hazards Not Asked Sleep Concern Not Asked Stress Concern Not Asked Weight Concern Not Asked Special Diet Not Asked Back Care Not Asked Exercise Not Asked Bike Helmet Not Asked Seat Belt Not Asked Domestic Violence No Social History Narrative Not on file ROS Review of Systems Constitutional: Negative for chills and fever. HENT: Positive for rhinorrhea. Negative for congestion, ear pain and sore throat. Eyes: Negative for discharge. Respiratory: Positive for cough. Negative for shortness of breath. Cardiovascular: Negative for chest pain. Gastrointestinal: Negative for abdominal pain, diarrhea, nausea and vomiting. Genitourinary: Negative for difficulty urinating. Musculoskeletal: Negative for back pain. Skin: Negative for rash. Neurological: Negative for weakness and headaches. Hematological: Negative for adenopathy. Psychiatric/Behavioral: Negative for confusion. PHYSICAL EXAM Visit Vitals BP (!) 154/109 (BP Location: Left arm, BP Position: Sitting) Comment: Pt states she was seen by PCPthis week for BP Pulse 88 Temp 99.1 F (37.3 C) (Temporal) Resp 18 Ht 1.6 m (5' 3") Wt 81 kg (178 lb 8 oz) SpO2 96% BMI 31.62 kg/m Physical Exam Vitals signs and nursing note reviewed. Constitutional: General: She is not in acute distress. Appearance: Normal appearance. She is well-developed. She is not ill-appearing or diaphoretic. HENT: Head: Normocephalic. Right Ear: Tympanic membrane normal. Left Ear: Tympanic membrane normal. Nose: Rhinorrhea (mild) present. Mouth/Throat: Mouth: Mucous membranes are moist. Pharynx: Oropharynx is clear. Eyes: Conjunctiva/sclera: Conjunctivae normal. Pupils: Pupils are equal, round, and reactive to light. Neck: Musculoskeletal: Normal range of motion and neck supple. Trachea: No tracheal deviation. Cardiovascular: Rate and Rhythm: Normal rate and regular rhythm. Heart sounds: Normal heart sounds. Pulmonary: Effort: Pulmonary effort is normal. No respiratory distress. Breath sounds: Normal breath sounds. Comments: occ dry cough Abdominal: General: There is no distension. Palpations: Abdomen is soft. Musculoskeletal: Normal range of motion. Lymphadenopathy: Cervical: No cervical adenopathy. Skin: General: Skin is warm and dry. Capillary Refill: Capillary refill takes less than 2 seconds. Neurological: General: No focal deficit present. Mental Status: She is alert and oriented to person, place, and time. Psychiatric: Mood and Affect: Mood normal. Behavior: Behavior normal. RESULTS No results found for this or any previous visit (from the past 1 hour(s)). ASSESSMENT/PLAN 1. Allergic cough Orders Placed This Encounter benzonatate 200 MG capsule Patient declined COVID19 testing. States she was tested in the past and was negative. Tessalon for cough. Suggested adding daily Zyrtec and Flonase. If worse she will follow up with her established PCP. If symptoms worsen patient was advised to follow up in our office, primary care provider or the Emergency Dept. Benefits, Risks, Contraindications, and Complications of recommended treatments were explained. The patient understands and agrees to proceed with plan. GIO Low 02/25/2020 documented in this encounter* Zeinab Mendoza MD - 03/14/2020 1:[address] [facility] PATIENT: Violet Warner DATE / TIME: 03/14/20 2:10 PM POS: Office AGE: 29 y.o. : 1990 RACE: [2] SEX: female PCP: Yves Boogie MD REFERRAL: Serene Melendez* HISTORY OF PRESENT ILLNESS CC / Reason for Consult: Hidradenitis HPI: 29-year-old female with history of axillary hidradenitis who presents now with significant progression into bilateral groins, perianal and buttock. Reports that she has been struggling with hidradenitis for the last 7 years. Has not been seen or evaluated by anyone from dermatology. Was seen by a plastic surgeon several years ago who did not recommend surgery at that time however she reportssince that visit her disease has significantly progressed PAST MEDICAL / SURGICAL HISTORY Past Medical History: Diagnosis Date Abscess HS (hereditary spherocytosis) (HCC) HS (hereditary spherocytosis) (HCC) Hypertension Past Surgical History: Procedure Laterality Date INCISION AND DRAINAGE (I & D) multiple times for axillary abscess FAMILY HISTORY Family History Problem Relation Age of Onset Diabetes Mother Hypertension Mother Stroke Father SOCIAL HISTORY Data Unavailable Social History Tobacco Use Smoking Status Current Every Day Smoker Packs/day: 0.25 Types: Cigarettes Smokeless Tobacco Never Used Social History Substance and Sexual Activity Alcohol Use Yes Comment: only on her birthday Social History Substance and Sexual Activity Drug Use No MEDICATIONS: Patient has a current medication list which includes the following prescription(s): doxycycline hyclate, ergocalciferol, ferrous sulfate, and ibuprofen. ALLERGIES: No Known Allergies REVIEW OF SYSTEMS Pertinent positives and negatives are listed in HPI, PMSH, SH, ALL above and in "Details" below. The following systems were reviewed: [] Const (fevers, chills, wt. loss, fatigue) [] CV (HTN, CP, MOFFETT, edema, DVT) [] Resp (SOB, pleurisy, asthma, apnea) [] GI (N, V, D, C, M, abd pain, appetite) [] Musc (back pain, joint stiffness, gout) [] Neuro (seizures, syncope, paralysis) [] Psych (depression, anxiety) [] Endo (hot/cold intol, polyuria[DM]) [] Hem/Lymph (Anemia, LA, bleeding) [] Allerg/Immun (seasonal, immuniz) [] Eyes (diplopia, cataracts) [] ENT/mouth (dysphagia, epistaxis) [] (dysuria, hematuria) [] Skin/Breast (moles, rash, lumps, nipple changes) Details: PHYSICAL EXAM BP (!) 160/97 Pulse (!) 111 Ht 5' 4" Wt 82.6 kg (182 lb) LMP 02/13/2020 SpO2 98% BMI 31.24 kg/m Details: Physical Exam Constitutional: Appearance: Normal appearance. HENT: Mouth/Throat: Mouth: Mucous membranes are moist. Eyes: General: No scleral icterus. Pupils: Pupils are equal, round, and reactive to light. Cardiovascular: Rate and Rhythm: Normal rate. Pulmonary: Effort: Pulmonary effort is normal. Abdominal: General: There is no distension. Palpations: Abdomen is soft. Tenderness: There is no abdominal tenderness. Musculoskeletal: Normal range of motion. Skin: Comments: Bilateral axilla significant scarring pitting and woody skin texture from chronic hidradenitis Bilateral groins extending onto both labia majora onto the perineum and in the gluteal cleft significant moisture and drainage from chronic hidradenitis with pits and tracts draining clear yellow-tinged fluid. Neurological: Mental Status: She is alert. Psychiatric: Mood and Affect: Mood normal. Thought Content: Thought content normal. Judgment: Judgment normal. LABS / X-RAYS Details: Laboratory Lab Results Component Value Date WBC 6.29 02/22/2020 RBC 4.01 02/22/2020 HGB 10.4 (L) 02/22/2020 HCT 34.2 (L) 02/22/2020 PLT 491 (H) 02/22/2020 No results found for: AMYLASE No results found for: LIPASE ASSESSMENT AND PLAN: Patient Active Problem List Diagnosis Routine medical exam Edema Hydradenitis Hereditary spherocytosis (HCC) Essential hypertension Iron deficiency anemia BMI 32.0-32.9,adult Obese Temporary high blood pressure Axillary hidradenitis suppurativa Nicotine dependence, cigarettes, uncomplicated BMI 30.0-30.9,adult Obesity (BMI 30-39.9) Vitamin D insufficiency Prediabetes Encounter to discuss test results Anemia Significant axillary, inguinal perianal and gluteal hidradenitis suppurativa Patient has not been seen or evaluated by anyone from dermatology nor has she had tried aggressive medical management of her disease. Will place referral for [facility] dermatology to determine if there is any medical management optimization. I did encourage her to cleanse and wash all areas daily.Attempt to keep them dry. No evidence of abscesses that need to be drained in the office today. Patient will likely need referral to plastic surgery at [facility] for wide excision if medical management is not successful Anticip Anesthesia: Follow-up: ICD: No primary diagnosis found. [] Thank you for the privilege of allowing me to participate in the care of Violet Warner. documented in this encounter* Erika Smith Jr., DO - 04/23/2020 11:19 AM EST Violet Warner is a 29 y.o. female who presents for evaluation of longstanding hidradenitis suppurativa (HS). She has had this disease for >10 years and has been managing it with warm compresses and soaks. She last saw a sprinkling system irrigator 3-4 years ago who gave her a short course of oral and topical antibiotics but this was not effective. She has constant drainage of foul- smelling fluid from draining sinus tracts in the gluteal cleft, axillae, and vulvocrural region. The drainage is the mostconcerning for the patient. She also is complaining of severe scarring in the affected areas and itaffects her mood and sexual interactions. Review of Systems Constitutional: Malaise: No Skin: Other new or changing growths on skin: No; scarring and draining sinus tracts in armpits and groin Past Medical History: Diagnosis Date Abscess HS (hereditary spherocytosis) (HCC) HS (hereditary spherocytosis) (HCC) Hypertension No past medical history pertinent negatives. family history includes Diabetes in her mother; Hypertension in her mother; Stroke in her father. Allergies and Meds: Reviewed in electronic medical record Physical Exam The following areas were within normal limits except as noted otherwise in this note: Full body: Oriented x 3/ alert; development/nourishment; mood/affect; scalp/hair; face; eyes/eyelids; lips; neck; digits/nails; right arm; left arm; chest; abdomen; back; right leg; left leg. Diagnoses and all orders for this visit: Hidradenitis suppurativa - Ambulatory referral to Dermatology - rifAMPin (RIFADIN) 300 MG capsule; Take 1 (one) capsule (300 mg total) by mouth 2 (two) times a day . - minocycline (MINOCIN,DYNACIN) 100 MG capsule; Take 1 (one) capsule (100 mg total) by mouth 2 (two) times a day . - benzoyl peroxide 10 % Clsr; Apply 1 application topically 2 (two) times a day . - clindamycin (Cleocin T) 1 % external solution; Apply topically 2 (two) times a day . Assessment and Plan 1. *Hidradenitis suppurativa - new problem. Etiology explained. Treatment options with emphasis on risk/benefits discussed. Correlation with smoking, hormones and weight discussed. Appropriate behavior modification emphasized. Pt will likely need biologic therapy. Will begin combination oral and topical antibiotic therapy as listed above. Will also discuss surgical consultation in the future onceoptimized medically.. Discussed possible side effects of rifampin including diarrhea, medication interactions and staining bodily fluids red. Pertinent PE: Erythematous nodules, draining sinus tracts/fistulas, comedones, and scars in the bilateral groin, axillae and gluteal cleft F/u in 3 months. Erika Smith DO documented in this encounter* Theresa Villalba PA-C - 04/28/2020 4:50 PM EST HPI Violet Warner female 1990 presents to the [facility] with Chief Complaint Patient presents with Bronchitis SOB,coughing, wheezing, chest congestion. Patient comes in with cough, shortness of breath, chest congestion, wheezing. She vapes. She deniesfevers. No known COVID. She just finished abx and states she started to get better but then got worse. She states it is worse at night and when laying flat. No calf pain or swelling. No history of asthma. History No Known Allergies Current Outpatient Medications Medication Sig ferrous sulfate 325 (65 Fe) MG tablet Take 325 mg by mouth. rifAMPin 300 MG capsule Take 300 mg by mouth Twice daily. albuterol 108 (90 Base) MCG/ACT Aero Soln inhaler Inhale 2 puffs every 4 hours as needed for Wheezing for up to 7 days. azithromycin (Zithromax Z-Jayy) 250 MG tablet Take 2 tablets (500 mg) on Day 1, then 1 tablet (250 mg) daily on Days 2-5 predniSONE 20 MG tablet 3 tabs daily x 3days; 2 tabs daily x 3days; 1 tab daily x 3days then 1/2 tablet daily x 3days nbyoetofqnviwvc-cprdzqfxlqreqxk-ydqzghkkcafegngg (Bromfed DM) 30-2-10 MG/5ML Syrup Take 1 teaspoon PO every 6 hours as needed family history includes Diabetes in her mother; Stroke in her father. Past Medical History: Diagnosis Date Hidradenitis suppurativa No past surgical history on file. Social History Socioeconomic History Marital status: Single Spouse name: Not on file Number of children: Not on file Years of education: Not on file Highest education level: Not on file Occupational History Not on file Social Needs Financial resource strain: Not on file Food insecurity Worry: Not on file Inability: Not on file Transportation needs Medical: Not on file Non-medical: Not on file Tobacco Use Smoking status: Former Smoker Types: Cigarettes Start date: 04/27/2009 Quit date: 03/13/2020 Years since quittin.1 Smokeless tobacco: Never Used Substance and Sexual Activity Alcohol use: No Drug use: Yes Types: Marijuana Sexual activity: Not on file Lifestyle Physical activity Days per week: Not on file Minutes per session: Not on file Stress: Not on file Relationships Social connections Talks on phone: Not on file Gets together: Not on file Attends pentecostalism service: Not on file Active member of club or organization: Not on file Attends meetings of clubs or organizations: Not on file Relationship status: Not on file Intimate partner violence Fear of current or ex partner: Not on file Emotionally abused: Not on file Physically abused: Not on file Forced sexual activity: Not on file Other Topics Concern Service Not Asked Blood Transfusions Not Asked Caffeine Concern Not Asked Occupational Exposure Not Asked Hobby Hazards Not Asked Sleep Concern Not Asked Stress Concern Not Asked Weight Concern Not Asked Special Diet Not Asked Back Care Not Asked Exercise Not Asked Bike Helmet Not Asked Seat Belt Not Asked Domestic Violence No Social History Narrative Not on file ROS No fevers, chills, nausea, vomiting, weakness, headaches, confusion. PHYSICAL EXAM Visit Vitals BP (!) 165/115 (BP Location: Left arm, BP Position: Sitting) Pulse 96 Temp 98.5 F (36.9 C) (Oral) Resp 15 Ht 1.6 m (5' 3") Wt 79.2 kg (174 lb 9.6 oz) LMP 04/21/2020 SpO2 96% No BMI 30.93 kg/m Physical: General: Alert and in no distress ENT: throat is clear, voice is normal Eyes: PERRL, EOM intact. Lungs: bilateral wheezing. Harsh cough. Patient able to talk in full sentences. Pulse ox normal. Cardiac: RRR, no murmur Skin: [place], warm. No rash or discolorations noted Neuro: Alert to person, place, and time without confusion Psych: calm and pleasant Muscular: Great ROM of upper and lower extremities. No back pain during exam. Neck is supple. ASSESSMENT/PLAN Violet was seen today for bronchitis. Diagnoses and all orders for this visit: Shortness of breath - XR CHEST PA AND LATERAL; Future - NOVEL CORONAVIRUS- NASOPHARYNGEAL; Future Cough - NOVEL CORONAVIRUS- NASOPHARYNGEAL; Future Wheezy bronchitis - NOVEL CORONAVIRUS- NASOPHARYNGEAL; Future Other orders - albuterol 108 (90 Base) MCG/ACT Aero Soln inhaler; Inhale 2 puffs every 4 hours as needed for Wheezing for up to 7 days. - uxqbeuevqhpzhrt-yvaqalbxcepxpba-omnhagnsswrbcpkg (Bromfed DM) 30-2-10 MG/5ML Syrup; Take 1 teaspoon PO every 6 hours as needed - Discontinue: predniSONE 20 MG tablet; 3 tabs daily x 3days; 2 tabs daily x 3days; 1 tab daily x 3days then 1/2 tablet daily x 3days - azithromycin (Zithromax Z-Jayy) 250 MG tablet; Take 2 tablets (500 mg) on Day 1, then 1 tablet (250 mg) daily on Days 2-5 - predniSONE 20 MG tablet; 3 tabs daily x 3days; 2 tabs daily x 3days; 1 tab daily x 3days then 1/2tablet daily x 3days COVID pending. If symptoms worsen patient was advised to follow up in our office or the Emergency Dept. Benefits, Risks, Contraindications, and Complications of recommended treatments were explained. The patient understands and agrees to proceed with plan. Theresa Villalba PA-C 04/28/2020 documented in this encounter* Kaitlyn Cosme, GREGORY-WET WHEELER - 06/18/2020 5:00 PM EST HPI Violet Warner female 1990 presents to the [facility] with Chief Complaint Patient presents with Cough on going for months, stuffy head for 3 weeks. Patient presents with dry cough and wheezing that is ongoing for several months. She was seen in April at the walk-in clinic for similar symptoms. She reports sufficient treatment with antibiotics, steroids, albuterol inhaler. States nasal congestion comes and goes, however has been worse in thelast week. She has tried several ipdj-gbq-wihiahv medications without long-term relief. She has an appointment with a new PCP on July 25 to establish care. She ran out of her inhaler and has beenusing a friend's. She denies exposure to COVID19 and does not wish to be tested today. No others inher home sick. No recent travel. History No Known Allergies Current Outpatient Medications Medication Sig ergocalciferol 1.25 MG (65928 UT) capsule TAKE 4 CAPSULES BY MOUTH ONCE A WEEK. ferrous sulfate 325 (65 Fe) MG tablet Take 325 mg by mouth. minocycline 100 MG capsule rifAMPin 300 MG capsule Take 300 mg by mouth Twice daily. albuterol 108 (90 Base) MCG/ACT Aero Soln inhaler Inhale 2 puffs every 4 hours as needed for Wheezing for up to 7 days. fluticasone 50 MCG/ACT Suspension nasal spray 2 sprays each nostril daily predniSONE 20 MG tablet Take 2 tablets by mouth daily for 3 days, THEN 1 tablet daily for 3 days. 40,40,40,20,20,20. olidmpnhuiuhycd-zhwdxrizwalfreh-etohbugatnveypya (Bromfed DM) 30-2-10 MG/5ML Syrup Take 1 teaspoon PO every 6 hours as needed (Patient not taking: Reported on 06/18/2020) Family History Problem Relation Age of Onset Diabetes Mother Stroke Father Past Medical History: Diagnosis Date Hidradenitis suppurativa No past surgical history on file. Social History Socioeconomic History Marital status: Single Spouse name: Not on file Number of children: Not on file Years of education: Not on file Highest education level: Not on file Occupational History Not on file Social Needs Financial resource strain: Not on file Food insecurity Worry: Not on file Inability: Not on file Transportation needs Medical: Not on file Non-medical: Not on file Tobacco Use Smoking status: Former Smoker Types: Cigarettes Start date: 04/27/2009 Smokeless tobacco: Never Used Substance and Sexual Activity Alcohol use: No Drug use: Yes Types: Marijuana Sexual activity: Yes Lifestyle Physical activity Days per week: Not on file Minutes per session: Not on file Stress: Not on file Relationships Social connections Talks on phone: Not on file Gets together: Not on file Attends pentecostalism service: Not on file Active member of club or organization: Not on file Attends meetings of clubs or organizations: Not on file Relationship status: Not on file Intimate partner violence Fear of current or ex partner: Not on file Emotionally abused: Not on file Physically abused: Not on file Forced sexual activity: Not on file Other Topics Concern Service Not Asked Blood Transfusions Not Asked Caffeine Concern Not Asked Occupational Exposure Not Asked Hobby Hazards Not Asked Sleep Concern Not Asked Stress Concern Not Asked Weight Concern Not Asked Special Diet Not Asked Back Care Not Asked Exercise Not Asked Bike Helmet Not Asked Seat Belt Not Asked Domestic Violence No Social History Narrative Not on file ROS Review of Systems Constitutional: Negative for chills and fever. HENT: Positive for congestion and rhinorrhea. Eyes: Negative for discharge. Respiratory: Positive for cough and wheezing. Negative for shortness of breath. Cardiovascular: Negative for chest pain. Gastrointestinal: Negative for abdominal pain, diarrhea, nausea and vomiting. Genitourinary: Negative for difficulty urinating. Musculoskeletal: Negative for back pain. Skin: Negative for rash. Neurological: Negative for weakness. Hematological: Negative for adenopathy. Psychiatric/Behavioral: Negative for confusion. PHYSICAL EXAM Visit Vitals BP (!) 185/122 (BP Location: Right arm, BP Position: Sitting) Pulse 106 Temp 98.3 F (36.8 C) (Oral) Resp 16 Ht 1.6 m (5' 3") Wt 82.1 kg (181 lb) LMP 06/05/2020 SpO2 95% No BMI 32.06 kg/m Physical Exam Vitals signs and nursing note reviewed. Constitutional: General: She is not in acute distress. Appearance: Normal appearance. She is well-developed. She is not ill-appearing or diaphoretic. HENT: Head: Normocephalic. Right Ear: Tympanic membrane normal. Left Ear: Tympanic membrane normal. Nose: Rhinorrhea present. Mouth/Throat: Mouth: Mucous membranes are moist. Pharynx: Oropharynx is clear. Eyes: Conjunctiva/sclera: Conjunctivae normal. Pupils: Pupils are equal, round, and reactive to light. Neck: Musculoskeletal: Normal range of motion and neck supple. Trachea: No tracheal deviation. Cardiovascular: Rate and Rhythm: Normal rate and regular rhythm. Heart sounds: Normal heart sounds. Pulmonary: Effort: Pulmonary effort is normal. No respiratory distress. Breath sounds: Wheezing present. Abdominal: General: There is no distension. Palpations: Abdomen is soft. Musculoskeletal: Normal range of motion. Lymphadenopathy: Cervical: No cervical adenopathy. Skin: General: Skin is warm and dry. Capillary Refill: Capillary refill takes less than 2 seconds. Neurological: General: No focal deficit present. Mental Status: She is alert and oriented to person, place, and time. Psychiatric: Mood and Affect: Mood normal. Behavior: Behavior normal. RESULTS No results found for this or any previous visit (from the past 1 hour(s)). ASSESSMENT/PLAN 1. Wheezy bronchitis 2. Rhinitis, unspecified type Orders Placed This Encounter ergocalciferol 1.25 MG (30390 UT) capsule minocycline 100 MG capsule albuterol 108 (90 Base) MCG/ACT Aero Soln inhaler fluticasone 50 MCG/ACT Suspension nasal spray predniSONE 20 MG tablet Reviewed two previous walk-in clinic provider notes. This is an acute on chronic issue that is undiagnosed. Outcome is not predicted. Will treat today with steroids. Refill albuterol inhaler. Follow up with PCP in Feb as scheduled. If symptoms worsen patient was advised to follow up in our office, primary care provider or the Emergency Dept. Benefits, Risks, Contraindications, and Complications of recommended treatments were explained. The patient understands and agrees to proceed with plan. GIO Low 06/18/2020 documented in this encounter* Cecile Oleary APRN-CNP - 08/15/2020 12:15 PM EST Patient: Violet Warner Patient : 1990 Patient Age: 30 y.o. Today's Date: 08/19/2020 Provider: GIO Dupont History of Present Illness: Patient here today for evaluation of Chief Complaint Patient presents with Shortness of Breath Fever Nasal Congestion Patient is here for cough, runny nose and SOB. She has been ill for a couple days. She is wonderingabout COVID to be tested. Has no CP - SOB with cough Voices no other concerns. History: No Known Allergies Past Medical History: Diagnosis Date Hidradenitis suppurativa No past surgical history on file. Social History Tobacco Use Smoking status: Former Smoker Types: Cigarettes Start date: 04/27/2009 Smokeless tobacco: Never Used Substance Use Topics Alcohol use: No Drug use: Yes Types: Marijuana Family History Problem Relation Age of Onset Diabetes Mother Stroke Father Review of Systems: Review of Systems Constitutional: Positive for chills, fatigue and fever. HENT: Positive for congestion, postnasal drip, rhinorrhea and sore throat. Respiratory: Positive for choking, shortness of breath and wheezing. Physical Exam: Vitals: 08/15/20 1221 BP: (!) 143/93 Pulse: 101 Resp: 24 Temp: 100.3 degrees F (37.9 degrees C) SpO2: 97% Weight: 86.2 kg (190 lb) Physical Exam Vitals reviewed. HENT: Head: Normocephalic. Cardiovascular: Rate and Rhythm: Normal rate and regular rhythm. Pulmonary: Effort: Pulmonary effort is normal. Breath sounds: Wheezing present. Musculoskeletal: General: Normal range of motion. Cervical back: Normal range of motion. Skin: General: Skin is warm and dry. Capillary Refill: Capillary refill takes less than 2 seconds. Neurological: General: No focal deficit present. Mental Status: She is alert. She is disoriented. Current Medications: Current Outpatient Medications: albuterol 108 (90 Base) MCG/ACT Aero Soln inhaler, Inhale 1 puff every 6 hours as needed for Wheezing., Disp: 1 Inhaler, Rfl: 0 budesonide-formoterol 160-4.5 mcg/puff Aerosol inhaler, Inhale 2 puffs every 12 hours., Disp: 1 Inhaler, Rfl: 0 cetirizine 10 MG tablet, Take 1 tablet by mouth daily., Disp: 30 tablet, Rfl: 0 ergocalciferol 1.25 MG (43448 UT) capsule, Take 1 capsule by mouth once a week., Disp: 14 capsule, Rfl: 0 ferrous sulfate 325 (65 Fe) MG tablet, Take 325 mg by mouth., Disp: , Rfl: fluticasone 50 MCG/ACT Suspension nasal spray, 2 sprays each nostril daily, Disp: 1 Bottle, Rfl: 0 lisinopril 10 MG tablet, Take 1 tablet by mouth daily., Disp: 30 tablet, Rfl: 0 metoprolol succinate 25 MG tablet XL, Take 1 tablet by mouth daily., Disp: 30 tablet, Rfl: 11 minocycline 100 MG capsule, , Disp: , Rfl: rifAMPin 300 MG capsule, Take 300 mg by mouth Twice daily., Disp: , Rfl: albuterol 108 (90 Base) MCG/ACT Aero Soln inhaler, Inhale 1 puff every 6 hours as needed for Wheezing., Disp: 1 Inhaler, Rfl: 0 azithromycin 250 MG tablet, Take 2 tablets (500 mg) on Day 1, then 1 tablet (250 mg) daily on Days 2-5, Disp: 6 tablet, Rfl: 0 guaiFENesin 600 MG Tab SR 12 HR tablet SR, Take 1 tablet by mouth 2 times daily as needed., Disp: 30 tablet, Rfl: 0 Health Maintenance List: Health Maintenance Topic Date Due HEPATITIS C VIRUS SCREENING Never done HIV SCREENING DISCUSSION Never done TETANUS Never done TDAP (ADULT) Never done CERVICAL CANCER SCREENING DISCUSSION Never done INFLUENZA VACCINE (1) Never done Assessment & Plan: ICD-10-CM 1. Fever and chills R50.9 POCT INFLUENZA, A B XR CHEST PA AND LATERAL CANCELED: SARS-COV-2 RAPID 2. Wheezing on auscultation R06.2 3. Acute bronchitis due to other specified organisms J20.8 Medications will be sent over to the pharmacy to start. Chest xray was also ordered. Follow up pending these results. No follow-ups on file. Patient was advised to call with any questions or concerns. If symptoms worsen patient was advised to follow up in our office or the Emergency Dept. Benefits, risks, contraindications, and complications of recommended treatments were explained the patient understands and agrees to proceed with plan. * Nahun Cristina LPN - 08/15/2020 12:15 PM EST Pt information faxed to scheduling for covid test today * Nahun Cristina LPN - 08/15/2020 12:15 PM EST Pt is here today with complaints of SOB x 2 days, runny nose documented in this encounter Reason for Referral Status Reason Specialty Diagnoses / Procedures Referred By Contact Referred To Contact Authorized Specialty Services Required/Patien t's Best Interest Dermatology Diagnoses Hidradenitis suppurativa Zeinab Mendoza MD [address] [address] Selvin Caldera MD [address] [place] [id number] Status Reason Specialty Diagnoses / Procedures Referred By Contact Referred To Contact New Request Diagnoses Deviated nasal septum Nasal obstruction Chronic sinusitis, unspecified location Procedures CT SINUSES WITHOUT CONTRAST NM CT SCAN,MAXILLOFACIAL AREA,W/O CONTRAST oRn Garay MD [address] [place] [phone] Status Reason Specialty Diagnoses / Procedures Referre d By Contact Referred To Contact Closed Diagnoses Lymphedema of arm Procedures US DUPLEX EXTREMITY DVT RIGHT Cecile Oleary, EXOTIC DANCER-WET WHEELER [address], [address] [place] [address] Status Reason Specialty Diagnoses / Procedures Referred By Contact Referred To Contact Closed Computerized Tomography Scan Diagnoses Deviated nasal septum Nasal obstruction Chronic sinusitis, unspecified location Procedures CT SINUSES WITHOUT CONTRAST NM CT SCAN,MAXILLOFACIAL AREA,W/O CONTRAST Ron Garay MD [address] [place] [phone] Scan [address] [place] [phone] Specialty Diagnoses / Procedures Referred By Contac t Referred To Contact Plastic Surgery Diagnoses Hidradenitis suppurativa Erika Smith Jr., DO [address] [place] [address] Jamarcus Fernandez, DO [address] [place] [address] Referral ID Status Reason Start Date Expiration Date V isits Requested Visits Authorized [id number] Authorized 07/10/2021 07/10/2022 1 1 Specialty Diagnoses / Procedures Referred By Contac t Referred To Contact Diagnoses Hidradenitis suppurativa Erika Smith Jr., DO [address] [place] [address] Erika Smith Jr., DO [address] [place] [address] Referral ID Status Reason Start Date Expiration Date Visits Requested Visits Authorized [id number] Authorized Specialty Services Required/Pat ient's Best Interest 10/09/2021 10/09/2022 1 1 Specialty Diagnoses / Procedures Referred By Contac t Referred To Contact Physical Therapy Diagnoses Edema of right upper extremity Cordell Steve, EXOTIC DANCER-WET WHEELER [address] [place] [address] [facility] [address] [address] Referral ID Status Reason Start Date Expiration Date V isits Requested Visits Authorized [id number] New Request 02/27/2022 03/24/2023 1 1 Specialty Diagnoses / Procedures Referred By Contac t Referred To Contact Diagnoses Uncontrolled hypertension Cordell Steve, EXOTIC DANCER-WET WHEELER [address] [place] [address] Referral ID Status Reason Start Date Expiration Date Visits Re quested Visits Authorized [id number] Closed 1 1 Chief Complaint and Reason for Visit Chief Complaint Admit Date SKIN October 13, 2024 3:04pm Chief Complaint Admit Date SKIN October 13, 2024 3:04pm HIDRADENITIS January 26, 2025 8: 58am Reason for Visit Admit Date Asthma January 26, 2025 8: 58am Hydradenitis January 26, 2025 8: 58am Hypertension January 26, 2025 8: 58am Additional Source Comments INFORMATION SOURCE (unrecogn ized section and content) DATE CREATED AUTHOR 12/01/2017 [facility] DATE CREATED AUTHOR AUTHOR'S ORGANIZ ATION 12/02/[address] [facility] DATE CREATED AUTHOR AUTHOR'S ORGANIZ ATION 03/14/2020 [facility] DATE CREATED AUTHOR AUTHOR'S ORGANIZ ATION 07/28/2020 [facility] DATE CREATED AUTHOR AUTHOR'S ORGANIZ ATION 01/13/2021 [facility] DATE CREATED AUTHOR AUTHOR'S ORGANIZ ATION 06/13/2023 [facility] DATE CREATED AUTHOR AUTHOR'S ORGANIZ ATION 10/20/2024 [facility] DATE CREATED AUTHOR AUTHOR'S ORGANIZ ATION 03/25/2025 [facility] Reason for Visit (unrecogniz ed section and content) Reason Comments Cough Pt c/o "runny nose a nd cough" for past couple dasy. States post nasal drip is causing her cough which is worse when she lays down "and I know its not covid because I took that test already" Reason Comments Consult referral from Dr. Nate jones for Hiradenitis. States that it's getting worse. Started under her arms and now has progressed to her buttocks, legs, and arms Status Reason Specialty Diagnoses / Procedures Referred By Contact Referred To Contact Closed General Surgery Diagnoses Hidradenitis suppurativa Serene Melendez, WET WHEELER [address] [place] [address] Zeinab Mendoza MD [address] [facility] [address] [place] [phone] Reason Comments Skin Problem Status Reason Specialty Diagnoses / Procedures Referred By Contact Referred To Contact Closed Specialty Services Required/Patient 's Best Interest Dermatology Diagnoses Hidradenitis suppurativa Zeinab Mendoza MD [address] [facility] [address] [address] Erika Smith Jr., DO [address] [place] [address] Reason Comments Bronchitis SOB,coughing, wheezi ng, chest congestion. Reason Comments Cough on going for months, stuffy head for 3 weeks. Reason Comments Shortness of Breath Fever Nasal Congestion Reason Comments Nasal Congestion Hand Swelling Reason Comments New Patient Chronic nasal conges tion Status Reason Specialty Diagnoses / Procedures Referred By Contact Referred To Contact New Request Otolaryngology Diagnoses Chronic congestion of paranasal sinus Cecile Oleary, EXOTIC DANCER-WET WHEELER [address], [address] [place] [address] Reason Comments Cancellation Status Reason Specialty Diagnoses / Procedures Referre d By Contact Referred To Contact Closed Diagnoses Lymphedema of arm Procedures US DUPLEX EXTREMITY DVT RIGHT Cecile Oleary, EXOTIC DANCER-WET WHEELER [address], [address] [place] [address] Status Reason Specialty Diagnoses / Procedures Referred By Contact Referred To Contact Closed Computerized Tomography Scan Diagnoses Deviated nasal septum Nasal obstruction Chronic sinusitis, unspecified location Procedures CT SINUSES WITHOUT CONTRAST NM CT SCAN,MAXILLOFACIAL AREA,W/O CONTRAST Ron Garay MD [address] [facility] [place] [address] Scan [address] [place] [address] Reason Comments Follow-up CT results Reason Comments Cough Has been wheezing fo r a couple of days which makes her cough, her inhaler is not helping her. Patient not vaccinated Wheezing Reason Comments Skin Lesion Reason Onset Date Comments Medication Refill 08/16/2021 Reason Comments Breathing Problem Pt reports she has a h/o asthma and has been without her inhalers for 2 months. States she has been using her girlfriends inhalers and left over prednisone but past few days it has been increasingly hard to breathe Reason Onset Date Comments Medication Refill 10/07/2021 Reason Comments Cough Wheezing Cough and wheezing f or about 4 days. Reason Comments Establish Care Hypertension Asthma Depression Nicotine Dependence Reason Comments Depression Hypertension Reason Comments Medication Refill Reason Comments Abdominal Pain Abdominal pain since Wednesday. Reason Comments Back Lump Middle left back Hypertension Reason Comments New Patient Specialty Diagnoses / Procedures Referred By Oz huerta Referred To Contact Plastic Surgery Diagnoses Sebaceous cyst Cordell Steve, EXOTIC DANCER-WET WHEELER [address] [facility] [place] [address] Phone: tel: fax: [facility] [address] [facility] [address] [place] [address] Phone: tel: fax: Referral ID Status Reason Start Date Expiration Date V isits Requested Visits Authorized [id number] New Request 09/11/2024 10/06/2025 1 1 Reason Comments Hypertension Edema RUE Lab Review Reason Comments Procedure 20lido Cyst on back Care Teams (unrecognized sec tion and content) Information Coder Relationship Specialty Start Date End Date Cecile Oleary EXOTIC DANCER-WET WHEELER [address], [address] [place] [address] PCP - General Nurse Practitioner - Family 07/30/20 Information Coder Relationship Specialty Start Date End Date No, Physician [facility] PCP - General 07/08/21 No, Physician [facility] 10/08/17 Serene Melendez, WET WHEELER [address] [place] [address] Nurse Practitioner Nurse Practitioner 02/22/20 Sharee Schaeffer MA Psychiatric Secretary 02/22/20 Information Coder Relationship Specialty Start Date End Date No, Physician [facility] PCP - General 07/08/21 No, Physician [facility] 10/08/17 Serene Melendez, WET WHEELER [address] [place] [address] Nurse Practitioner Nurse Practitioner 02/22/20 Sharee Schaeffer MA Psychiatric Secretary 02/22/20 Information Coder Relationship Specialty Start Date End Date No, Physician [facility] PCP - General 07/08/21 No, Physician [facility] 10/08/17 Serene Melendez, WET WHEELER [address] [place] [address] Nurse Practitioner Nurse Practitioner 02/22/20 Sharee Schaeffer MA Psychiatric Secretary 02/22/20 Information Coder Relationship Specialty Start Date End Date Cecile Oleary, EXOTIC DANCER-WET WHEELER [address], [address] [place] [address] PCP - General Nurse Practitioner - Family 07/30/20 Information Coder Relationship Specialty Start Date End Date No, Physician [facility] PCP - General 07/08/21 No, Physician [facility] 10/08/17 Serene Melendez, WET WHEELER [address] [place] [address] Nurse Practitioner Nurse Practitioner 02/22/20 Sharee Schaeffer MA Psychiatric Secretary 02/22/20 Information Coder Relationship Specialty Start Date End Date No, Physician [facility] PCP - General 07/08/21 No, Physician [facility] 10/08/17 Serene Melendez, WET WHEELER [address] [place] [address] Nurse Practitioner Nurse Practitioner 02/22/20 Sharee Schaeffer MA Psychiatric Secretary 02/22/20 Information Coder Relationship Specialty Start Date End Date No, Physician [facility] PCP - General 07/08/21 No, Physician [facility] 10/08/17 Serene Melendez, WET WHEELER [address] [place] [address] Nurse Practitioner Nurse Practitioner 02/22/20 Sharee Schaeffer MA Psychiatric Secretary 02/22/20 Information Coder Relationship Specialty Start Date End Date Cordell Steve APRN-WET WHEELER [address] [place] [phone] PCP - General Certified Nurse Practitioner 10/13/21 Information Coder Relationship Specialty Start Date End Date Cordell Steve, EXOTIC DANCER-WET WHEELER [address] [place] [phone] PCP - General Certified Nurse Practitioner 10/13/21 Information Coder Relationship Specialty Start Date End Date Cordell Steve EXOTIC DANCER-WET WHEELER [address] [place] [phone] PCP - General Certified Nurse Practitioner 10/13/21 Information Coder Relationship Specialty Start Date End Date Yves Boogie MD PCP - General Emergency Medicine 10/08/17 07/07/21 No, Physician [facility] PCP - General 07/08/21 No, Physician [facility] 10/08/17 Serene Melendez, WET WHEELER [address] [place] [address] Nurse Practitioner Nurse Practitioner 02/22/20 Sharee Schaeffer MA Psychiatric Secretary 02/22/20 Information Coder Relationship Specialty Start Date End Date No, Physician [facility] PCP - General 07/08/21 No, Physician [facility] 10/08/17 Serene Melendez, WET WHEELER [address] [place] [address] Nurse Practitioner Nurse Practitioner 02/22/20 Sharee Schaeffer MA Psychiatric Secretary 02/22/20 Information Coder Relationship Specialty Start Date End Date Cordell Steve, EXOTIC DANCER-WET WHEELER [address] [place] [phone] PCP - General Certified Nurse Practitioner 10/13/21 Information Coder Relationship Specialty Start Date End Date Cordell Steve EXOTIC DANCER-JOSE [address] [place] [phone] PCP - General Certified Nurse Practitioner 10/13/21 Information Coder Relationship Specialty Start Date End Date Cordell Steve EXOTIC DANCER-WET WHEELER [address] [place] [phone] PCP - General Certified Nurse Practitioner 10/13/21 Information Coder Relationship Specialty Start Date End Date Cordell Steve, EXOTIC DANCER-WET WHEELER [address] [place] [phone] PCP - General Certified Nurse Practitioner 10/13/21 Information Coder Relationship Specialty Start Date End Date Cordell Steve EXOTIC DANCER-WET WHEELER [address] [place] [phone] PCP - General Certified Nurse Practitioner 10/13/21 Information Coder Relationship Specialty Start Date End Date Cordell Steve EXOTIC DANCER-WET WHEELER [address] [place] [phone] PCP - General Certified Nurse Practitioner 10/13/21 Team Status: Active Member Role Status Dates Cordell Steve FIRE BATTALION CHIEF-C Primary Care Provider Active Team Status: Inactive Member Role Status Dates Cordell Steve FIRE BATTALION CHIEF-C Primary Care Provider Active Start: October 13, 2024 End: October 13, 2024 Dr. Neha Cruz MD Attending Provider Active S tart: October 13, 2024 End: October 13, 2024 Dr. Neha Cruz MD Referring Provider Active S tart: October 13, 2024 End: October 13, 2024 Team Status: Active Member Role/Relationship Status Dates Cordell Steve FIRE BATTALION CHIEF-C Primary Care Provider Active Team Status: Inactive Member Role/Relationship Status Dates Cordell Steve FIRE BATTALION CHIEF-C Primary Care Provider Active Start: October 13, 2024 End: October 13, 2024 Dr. Neha Cruz MD Attending Provider Active S tart: October 13, 2024 End: October 13, 2024 Dr. Neha Cruz MD Referring Provider Active S tart: October 13, 2024 End: October 13, 2024 Team Status: Inactive Member Role/Relationship Status Dates Cordell Steve FIRE BATTALION CHIEF-C Primary Care Provider Active Start: January 26, 2025 End: January 26, 2025 Cordell Steve FIRE BATTALION CHIEF-C Referring Provider Active Start: January 26, 2025 End: January 26, 2025 Dr. Jorge Day MD Attending Provider Active Start: January 26, 2025 End: January 26, 2025 Team Status: Active Member Role/Relationship Status Dates Cordell Steve FIRE BATTALION CHIEF-C Primary care physician Active Team Status: Inactive Member Role/Relationship Status Dates Cordell Steve FIRE BATTALION CHIEF-C Primary care physician Active Start: January 26, 2025 End: January 26, 2025 Dr. Jorge Day MD Attending physician Active Start: January 26, 2025 End: January 26, 2025 Dr. Neha Cruz MD Referring Provider Active S tart: January 26, 2025 End: January 26, 2025 Team Status: Inactive Member Role/Relationship Status Dates AAYUSH Brewer Primary care physician Active Start: March 07, 2025 End: March 07, 2025 AAYUSH Brewer Referring Provider Active Start: March 07, 2025 End: March 07, 2025 Dr. Jorge Day MD Attending physician Active Start: March 07, 2025 End: March 07, 2025 Team Status: Active Member Role/Relationship Status Dates AAYUSH Brewer Primary care physician Active Start: March 07, 2025 Dr. Jorge Day MD Attending physician Active Start: March 07, 2025 Dr. Jorge Day MD Referring Provider Active Start: March 07, 2025 Team Status: Inactive Member Role/Relationship Status Dates AAYUSH Brewer Primary care physician Active Start: March 07, 2025 End: March 07, 2025 Dr. Jorge Day MD Attending physician Active Start: March 07, 2025 End: March 07, 2025 Dr. Jorge Day MD Referring Provider Active Start: March 07, 2025 End: March 07, 2025 Team Status: Inactive Member Role/Relationship Status Dates AAYUSH Brewer Primary care physician Active Start: March 23, 2025 End: March 23, 2025 AAYUSH Brewer Referring Provider Active Start: March 23, 2025 End: March 23, 2025 Dr. Jorge Day MD Attending physician Active Start: March 23, 2025 End: March 23, 2025 Scheduled Active and Recently Administ ered Medications (unrecognized section and content) Medication Order 12/13/2021 12/14/2021 12/15/2021 ipratropium-albuterol (DUONEB) 0.5-2.5 (3) MG/3ML nebulizer solution 3 mL (COMPLETED) 3 mL, Nebulization, ONCE, 1 dose, On Wed12/15/21 at 2345 2323 (Given - Provid er: Neva Giordano RCP) predniSONE (DELTASONE) tablet 40 mg (COMPLETED) 40 mg, Oral, ONCE, 1 dose, On Wed12/15/21 at 2345 2322 (Given - Provid er: Nelsy Varela RN) Scheduled Medication Order 01/31/2023 02/01/2023 02/02/2023 cefTRIAXone (ROCEPHIN) 1 g in sodium chloride 0.9% (MB PLUS) 50 mL (total volume) IVPB (COMPLETED) 1 g, Intravenous, Administer over 30 Minutes, ONCE, 1 dose, On e 02/02/23 at 0930 0933 ($$New Bag$$ - Provider: Esther Chavez RN)1008 (Stopped - Provider: Esther Chavez RN) diphenhydrAMINE (BENADRYL) injection 50 mg (COMPLETED) 50 mg, Intravenous, ONCE, 1 dose, On Wed02/02/23 at 0745 0753 (Given - Provid er: Esther Chavez RN) Lactated ringers IV solution 1,000 mL (COMPLETED) 1,000 mL, Intravenous, ONCE, 1 dose, On e 02/02/23 at 0745 0753 ($$New Bag$$ - Provider: Esther Chavez RN)1040 (Stopped - Provider: Esther Chavez RN) Metoclopramide (REGLAN) injection 10 mg (COMPLETED) 10 mg, Intravenous, ONCE, 1 dose, On Wed02/02/23 at 0745 0741 (Given - Provid er: Esther Chavez RN) Ondansetron 4mg/2ml (ZOFRAN) injection 4 mg (COMPLETED) 4 mg, Intravenous, ONCE, 1 dose, On e 02/02/23 at 0745 0752 (Given - Provid er: Esther Chavez RN) Pantoprazole (PROTONIX) injection 40 mg (COMPLETED) 40 mg, Intravenous, ONCE, 1 dose, On e 02/02/23 at 0745, Dilute each 40 mg vial with 10 mL of NS. All bolus doses, whether 40 mg or 80 mg, should be administered over at least two minutes., Indications: Inpt Stress Ulcer Prophylaxis 0754 (Given - Provid er: Esther Chavez RN) potassium bicarbonate (EFFER-K) effervescent tablet 50 mEq (COMPLETED) 50 mEq, Oral, ONCE, 1 dose, On e 02/02/23 at 1000, Effervescent tablet; Must be dissolved in the amount of diluent recommended by the regional economist. Solution should be sipped slowly, over 5-10 minutes. 0932 (Given - Provid er: Esther Chavez RN) Goals (unrecognized section and content) Goals may be documented in a n alternate sectionGoals may be documented in an alternate sectionGoals may be documented in an alternate sectionGoals may be documented in an alternate sectionGoals may be documented in an alternate section FOR RECORDS PERTAINING TO PATIENTS WHO ARE OR HAVE BEEN ENROLLED IN A CHEMICAL DEPENDENCY/SUBSTANCEABUSE PROGRAM, SOME INFORMATION MAY BE OMITTED. This clinical summary was aggregated from multiple sources. Caution should be exercised in using it in the provision of clinical care. This summary normalizes information from multiple sources, and as a consequence, information in this document may materially change the coding, format and clinical context of patient data. In addition, data may be omitted in some cases. CLINICAL DECISIONS SHOULD BE BASED ON THE PRIMARY CLINICAL RECORDS. [email or web address] provides no warranty or guarantee of the accuracy or completeness of information in this document.
== END | disposition home or self-care (01) ==
LOC: LABSPEC 16:35
PROVIDERS: PCP Nurse Practitioner Family; Referring Provider Surgery Plastic and Reconstructive Surgery; Visit Provider Surgery Plastic and Reconstructive Surgery
DX: L73.2 Hidradenitis suppurativa (principal)
CPT/HCPCS: 88304